=== PATIENT | male | born 1955 | race Hispanic/Latino ===

== ENCOUNTER 2016-11-02 16:26 | Inpatient (IN) | payer MEDICAID ==
[2016-11-02] MEDS ORDERED: Sodium Chloride 0.9% 1,000 ML IV ONE (17:16)
[2016-11-02 17:28] LABS: VENOUS BLOOD GAS BASE EXCESS 0.6 mmol/L (0.0-2.0); VENOUS BLOOD GAS PCO2 47 mmHg (40-60); VENOUS BLOOD PH 7.36 (7.32-7.43)
[2016-11-02 17:38] LABS: BASO # 0.1 K/uL (0.0-0.2); BASO % 1.5 % (0.0-2.0); EOS % 0.3 % (0.0-4.0); LYMPH # 1.4 K/uL (1.0-4.3); LYMPH % 18.9 % (20.0-40.0); MEAN CELL VOLUME 92.7 fL (80.0-94.0); MEAN CORPUSCULAR HEMOGLOBIN 31.2 pg (27.0-31.0); MEAN CORPUSCULAR HGB CONC 33.6 g/dL (33.0-37.0); MEAN PLATELET VOLUME 10.4 fL (7.2-11.7); MONO # 0.8 K/uL (0.0-0.8); MONO % 11.6 % (0.0-10.0); NRBC % 0.1 % (0.0-2.0); RED CELL DISTRIBUTION WIDTH 13.7 % (11.5-14.5); WHITE BLOOD COUNT 7.2 K/uL (4.8-10.8)
[2016-11-02 17:55] LABS: POTASSIUM 2.9 mmol/L (3.6-5.2)
[2016-11-02 17:57] LABS: ALB/GLOB RATIO 1.2 (1.0-2.1); BILIRUBIN,TOTAL 0.7 mg/dL (0.2-1.3); TOTAL PROTEIN 7.3 g/dL (6.3-8.3)
[2016-11-02] MEDS ORDERED: Piperacill/Tazo 4.5gm in Dex 4.5 GM/100 ML BAG IVPB STA (18:02)
[2016-11-02] MEDS ORDERED: Vancomycin 1 gm/NS 200 ml 1 GM/200 ML BAG IVPB STA (18:02)
[2016-11-02 18:16] LABS: TROPONIN I 0.023 ng/mL (0.00-0.120)
--- NOTE | 2016-11-02 18:22 | RAD ---
HISTORY: Sepsis patient. Portable study 18:14. COMPARISON: 08/30/2012. FINDINGS: LUNGS: No active pulmonary disease. PLEURA: No significant pleural effusion identified, no pneumothorax apparent. CARDIOVASCULAR: No radiographic findings to suggest acute or significant cardiovascular disease. OSSEOUS STRUCTURES: No significant abnormalities. VISUALIZED UPPER ABDOMEN: Normal. OTHER FINDINGS: None. IMPRESSION: No active disease. No significant interval change compared to the prior examination(s).
[2016-11-02] MEDS ORDERED: Piperacillin/Tazobact 3.375 gm 100 ML IVPB ONE (18:28)
[2016-11-02 18:31] LABS: RBC URINE 1 /hpf (0-3); URINE BACTERIA RARE (<OCC); URINE BILIRUBIN NEGATIVE (NEGATIVE); URINE BLOOD NEGATIVE (NEGATIVE); URINE COLOR Yellow (YELLOW); URINE GLUCOSE (UA) NORMAL (Normal); URINE KETONE NEGATIVE (NEGATIVE); URINE LEUKOCYTE ESTERASE NEG Leu/uL (Negative); URINE PROTEIN NEGATIVE (NEGATIVE); URINE UROBILINOGEN NORMAL mg/dL (0.2-1.0); WBC URINE 9 /hpf (0-5)
--- NOTE | 2016-11-02 18:43 | C.PDOC ---
History Of Present Illness 61-year-old male, PMHx includes Hypertension, s/p CABG (seven years ago), is sent to the emergency department by PMD, with complaints of hypotension. Patient states he has been experiencing a cough/URI symptoms for the past few days and now has abdominal pain and chest pain. . States he fell yesterday and landed on elbows and head because he was unable to stand. Denies headaches, nausea/vomiting. No other complaints at this time Time Seen by Provider: 11/02/16 17:54 Chief Complaint (Nursing): Weakness/Neurological Deficit History Per: Patient History/Exam Limitations: no limitations Pain Scale Rating Of: 4 Additional History Per: Patient Past Medical History Reviewed: Historical Data, Nursing Documentation, Vital Signs Vital Signs: Last Vital Signs Temp 100.5 F H 11/02/16 18:43 Pulse 76 11/02/16 18:43 Resp 15 11/02/16 18:43 BP 91/56 L 11/02/16 18:43 Pulse Ox 95 11/02/16 18:55 - Medical History PMH: Arthritis, Asthma, Bronchitis, COPD, Depression, Emphysema, HTN Family History: States: Unknown Family Hx - Social History Hx Tobacco Use: No Hx Alcohol Use: No Hx Substance Use: No Review Of Systems Except As Marked, All Systems Reviewed And Found Negative. Constitutional: Positive for: Fever, Chills Cardiovascular: Negative for: Chest Pain Respiratory: Positive for: Cough. Negative for: Shortness of Breath Gastrointestinal: Negative for: Vomiting Musculoskeletal: Negative for: Back Pain Skin: Negative for: Rash Neurological: Positive for: Weakness, Dizziness. Negative for: Numbness, Confusion, Seizures, Altered Mental Status, Headache Physical Exam - Physical Exam Appears: Non-toxic, No Acute Distress, Unkempt, Chronically Ill Skin: Warm, Dry, No Rash Head: Atraumatic, Normacephalic Eye(s): bilateral: EOMI (PUPILS PINPOINT), left: Other (BLOIND LEFT EYE) Nose: Normal Oral Mucosa: Moist Lips: Normal Appearing Neck: Normal ROM Cardiovascular: Rhythm Regular Respiratory: No Accessory Muscle Use, Rhonchi (SCATTERED) Gastrointestinal/Abdominal: Soft, Tenderness (EPIGASSTRIC, RIGHT CHEST WALL), No Guarding, No Rebound Back: No CVA Tenderness Extremity: Normal ROM Neurological/Psych: Oriented x3, Normal Speech ED Course And Treatment - Laboratory Results Result Diagrams: 11/02/16 17:32 11/02/16 17:32 O2 Sat by Pulse Oximetry: 95 Disposition Discussed With DrAlida: Erica Graff Counseled Patient/Family Regarding: Studies Performed, Diagnosis - Disposition Disposition: HOSPITALIZED Disposition Time: 18:54 Condition: GUARDED - POA Present On Arrival: None - Clinical Impression Clinical Impression: Hypotension - Scribe Statement The provider has reviewed the documentation as recorded by the Scribcelia Holland All medical record entries made by the Scribe were at my direction and personally dictated by me. I have reviewed the chart and agree that the record accurately reflects my personal performance of the history, physical exam, medical decision making, and the department course for this patient. I have also personally directed, reviewed, and agree with the discharge instructions and disposition. Physician Patient Turnover Patient Signed Over To: Edison Flynn Handoff Comments: patient with hypotension, fever, no source, for admission, pending ICU eval. Decision To Admit - . Patient Diagnosis: Hypotension
[2016-11-02] MEDS ORDERED: Potassium Chloride 20 mEq ER Tab PO STA (18:50)
[2016-11-02 18:57] LABS: ALCOHOL SERUM < 10 mg/dl (0-10); MAGNESIUM 1.4 mg/dL (1.6-2.3); PHOSPHOROUS 3.9 mg/dL (2.5-4.5)
[2016-11-02] MEDS ORDERED: Potassium Chloride 20 mEq ER Tab PO ONE (20:49)
[2016-11-02 21:08] LABS: VENOUS BLOOD GAS BASE EXCESS -0.8 mmol/L (0.0-2.0); VENOUS BLOOD GAS PCO2 44 mmHg (40-60); VENOUS BLOOD PH 7.36 (7.32-7.43)
[2016-11-02] MEDS ORDERED: Sodium Chloride 0.9% 1,000 ML ONE (21:13)
--- NOTE | 2016-11-02 21:14 | CP.PCM.CON ---
History of Present Illness - History of Present Illness History of Present Illness: CCM 61 yo male with hx HTN/CABG /Arthritis /Asthma /COPD /Depression went to PMD b/ o cough x 2 days and sent to ED b/o low BP. Pt claims pleuritic cough x 2 days. + felt feverish. + vomited. Has had diarrhea. yest Had some epigastric pain with cough as well. No MOBLEY. Pt was walking yest and felt sob and like he might pass out. In ED pt given 3 liters IV fluid and BP improved into 90's. Pt claims feeling better except when coughing. Started on Ab in ED. Influenza neg in ED. ROS- as noted All- NKDA Social- Ex-tob/ ex-ETOH/ no drugs Meds-reviewed FH- Unknown PE T-100.5 P-72 R-15 BP-97/54 Neck- no jvd lungs- bilat coarse bs Heart-rr aBd- bs+ , soft, no localized tenderness Ext- nontender Neuro- nonfocal Labs, ekg, h-zcti-wudhijlm A&P Sepsis r/o PNA COPD Hypokalemia Hx CABG Hx HTn Depression BP improved and not tachycardic cont Ab f/u cultures Optimize lytes cont IV fluid f/u lactate hold all BP meds DVT prophylaxis Pt does not need ICU at this time- would suggest telemetry d/w ED staff Past Patient History - Infectious Disease Hx of Infectious Diseases: None - Past Social History Smoking Status: Former Smoker - CARDIAC Hx Hypertension: Yes - PULMONARY Hx Asthma: Yes Hx Bronchitis: Yes Hx Chronic Obstructive Pulmonary Disease (COPD): Yes Hx Emphysema: Yes - MUSCULOSKELETAL/RHEUMATOLOGICAL Hx Arthritis: Yes - PSYCHIATRIC Hx Depression: Yes Hx Substance Use: No - SURGICAL HISTORY Hx Surgeries: Yes Other/Comment: triple bypass two years ago. - ANESTHESIA Hx Anesthesia: Yes Hx Anesthesia Reactions: No Meds Allergies/Adverse Reactions: Allergies Allergy/AdvReac Type Severity Reaction Status Date / Time No Known Allergies Allergy Verified 11/02/16 16:38 - Medications Medications: Current Medications Potassium Chloride (Potassium Chloride 20 Meq/100 Ml) 20 meq in 100 mls @ 50 mls/hr IVPB ONCE ONE Stop: 11/02/16 23:02 Results - Vital Signs Recent Vital Signs: Last Vital Signs Temp 100.5 F H 11/02/16 18:43 Pulse 76 11/02/16 18:43 Resp 15 11/02/16 18:43 BP 91/56 L 11/02/16 18:43 Pulse Ox 95 11/02/16 19:06 - Labs Result Diagrams: 11/02/16 17:32 11/02/16 17:32 Labs: Laboratory Results - last 24 hr 11/02/16 11/02/16 11/02/16 17:23 17:32 17:32 WBC 7.2 RBC 3.78 L Hgb 11.8 L Hct 35.0 MCV 92.7 MCH 31.2 H MCHC 33.6 RDW 13.7 Plt Count 262 MPV 10.4 Neut % (Auto) 67.7 Lymph % (Auto) 18.9 L [place] % (Auto) 11.6 H Eos % (Auto) 0.3 Baso % (Auto) 1.5 Neut # 4.9 Lymph # 1.4 [place] # 0.8 Eos # 0.0 Baso # 0.1 PT INR APTT pO2 25 L VBG pH 7.36 VBG pCO2 47 VBG HCO3 23.9 VBG Total CO2 28.0 VBG O2 Sat (Calc) 45.6 VBG Base Excess 0.6 VBG Potassium 2.8 L Sodium 131.0 L 134 Chloride 97.0 L 95 L Glucose 89 Lactate 2.2 H Potassium 2.9 L Carbon Dioxide 23 Anion Gap 19 BUN 16 Creatinine 1.5 Est GFR ( Amer) 58 Est GFR (Non-Af Amer) 48 Random Glucose 88 Calcium 8.0 L Phosphorus Magnesium Total Bilirubin 0.7 AST 41 ALT 34 Alkaline Phosphatase 68 Total Creatine Kinase 152 CK-MB (Mass) 0.25 Troponin I 0.0230 Troponin I, Quant 0.0230 NT-Pro-B Natriuret Pep 652 Total Protein 7.3 Albumin 3.9 Globulin 3.4 Albumin/Globulin Ratio 1.2 Venous Blood Potassium 2.8 L Urine Color Urine Clarity Urine pH Ur Specific [place] Urine Protein Urine Glucose (UA) Urine Ketones Urine Blood Urine Nitrate Urine Bilirubin Urine Urobilinogen Ur Leukocyte Esterase Urine WBC (Auto) Urine RBC (Auto) Ur Squamous Epith Cells Urine Bacteria Urine Opiates Screen Urine Methadone Screen Ur Barbiturates Screen Ur Phencyclidine Scrn Ur Amphetamines Screen U Benzodiazepines Scrn U Oth Cocaine Metabols U Cannabinoids Screen Alcohol, Quantitative Influenza Typ A,B (EIA) 11/02/16 11/02/16 11/02/16 17:32 18:12 18:12 WBC RBC Hgb Hct MCV MCH MCHC RDW Plt Count MPV Neut % (Auto) Lymph % (Auto) [place] % (Auto) Eos % (Auto) Baso % (Auto) Neut # Lymph # [place] # Eos # Baso # PT 11.7 INR 1.0 APTT 33 pO2 VBG pH VBG pCO2 VBG HCO3 VBG Total CO2 VBG O2 Sat (Calc) VBG Base Excess VBG Potassium Sodium Chloride Glucose Lactate Potassium Carbon Dioxide Anion Gap BUN Creatinine Est GFR ( Amer) Est GFR (Non-Af Amer) Random Glucose Calcium Phosphorus Magnesium Total Bilirubin AST ALT Alkaline Phosphatase Total Creatine Kinase CK-MB (Mass) Troponin I Troponin I, Quant NT-Pro-B Natriuret Pep Total Protein Albumin Globulin Albumin/Globulin Ratio Venous Blood Potassium Urine Color Yellow Urine Clarity Hazy Urine pH 6.0 Ur Specific [place] 1.017 Urine Protein Negative Urine Glucose (UA) Normal Urine Ketones Negative Urine Blood Negative Urine Nitrate Negative Urine Bilirubin Negative Urine Urobilinogen Normal Ur Leukocyte Esterase Neg Urine WBC (Auto) 9 H Urine RBC (Auto) 1 Ur Squamous Epith Cells 1 Urine Bacteria Rare Urine Opiates Screen Negative Urine Methadone Screen Negative Ur Barbiturates Screen Negative Ur Phencyclidine Scrn Negative Ur Amphetamines Screen Negative U Benzodiazepines Scrn Negative U Oth Cocaine Metabols Negative U Cannabinoids Screen Negative Alcohol, Quantitative Influenza Typ A,B (EIA) 11/02/16 11/02/16 18:16 18:41 WBC RBC Hgb Hct MCV MCH MCHC RDW Plt Count MPV Neut % (Auto) Lymph % (Auto) [place] % (Auto) Eos % (Auto) Baso % (Auto) Neut # Lymph # [place] # Eos # Baso # PT INR APTT pO2 VBG pH VBG pCO2 VBG HCO3 VBG Total CO2 VBG O2 Sat (Calc) VBG Base Excess VBG Potassium Sodium Chloride Glucose Lactate Potassium Carbon Dioxide Anion Gap BUN Creatinine Est GFR ( Amer) Est GFR (Non-Af Amer) Random Glucose Calcium Phosphorus 3.9 Magnesium 1.4 L Total Bilirubin AST ALT Alkaline Phosphatase Total Creatine Kinase CK-MB (Mass) Troponin I Troponin I, Quant NT-Pro-B Natriuret Pep Total Protein Albumin Globulin Albumin/Globulin Ratio Venous Blood Potassium Urine Color Urine Clarity Urine pH Ur Specific [place] Urine Protein Urine Glucose (UA) Urine Ketones Urine Blood Urine Nitrate Urine Bilirubin Urine Urobilinogen Ur Leukocyte Esterase Urine WBC (Auto) Urine RBC (Auto) Ur Squamous Epith Cells Urine Bacteria Urine Opiates Screen Urine Methadone Screen Ur Barbiturates Screen Ur Phencyclidine Scrn Ur Amphetamines Screen U Benzodiazepines Scrn U Oth Cocaine Metabols U Cannabinoids Screen Alcohol, Quantitative < 10 Influenza Typ A,B (EIA) Negative for flu a/b Assessment & Plan (1) Sepsis Status: Acute (2) PNA (pneumonia) Status: Acute (3) COPD (chronic obstructive pulmonary disease) Status: Chronic
[2016-11-02] MEDS ORDERED: Magnesium Sulfate 1 gm in D5W 1 GM/100 ML BAG IVPB ONE (21:31)
[2016-11-02] MEDS ORDERED: Albuterol HFA 90 mcg/actuation (8 g) INH PRN (21:32)
[2016-11-02] MEDS ORDERED: ACLIDINIUM BROMIDE 400 MCG IH SCH (22:00)
[2016-11-02] MEDS: Sodium Chloride 0.9% 1,000 ML IV SCH (22:45)
[2016-11-03] MEDS ORDERED: Magnesium Sulfate 1 gm in D5W 1 GM/100 ML BAG IVPB ONE ×2 (04:00→09:39)
[2016-11-03 07:22] LABS: BASO # 0.1 K/uL (0.0-0.2); BASO % 1.3 % (0.0-2.0); EOS % 0.7 % (0.0-4.0); HEMATOCRIT 32.7 % (35.0-51.0); LYMPH % 18.2 % (20.0-40.0); MEAN CORPUSCULAR HEMOGLOBIN 30.8 pg (27.0-31.0); MEAN CORPUSCULAR HGB CONC 33.5 g/dL (33.0-37.0); MEAN PLATELET VOLUME 10.4 fL (7.2-11.7); MONO # 0.5 K/uL (0.0-0.8); NRBC % 0.1 % (0.0-2.0); RED CELL DISTRIBUTION WIDTH 13.6 % (11.5-14.5); WHITE BLOOD COUNT 5.5 K/uL (4.8-10.8)
[2016-11-03 07:35] LABS: CHLORIDE 101 mmol/L (98-107); POTASSIUM 2.7 mmol/L (3.6-5.2); SODIUM 134 mmol/L (132-148)
[2016-11-03 07:37] LABS: ALB/GLOB RATIO 1.1 (1.0-2.1); ALKALINE PHOSPHATASE 62 U/L (38-126); ALT/SGPT 31 U/L (21-72); AST/SGOT 36 U/L (17-59); BILIRUBIN,TOTAL 0.4 mg/dL (0.2-1.3); BLOOD UREA NITROGEN 12 mg/dL (9-20); CARBON DIOXIDE 21 mmol/L (22-30); CHOLESTEROL 132 mg/dL (0-199); GFR AFRICAN-AMERICAN > 60; GLUCOSE,RANDOM 105 mg/dL (75-110); TOTAL PROTEIN 6.4 g/dL (6.3-8.3)
[2016-11-03 07:38] LABS: CALCIUM 7.6 mg/dl (8.6-10.4); MAGNESIUM 1.7 mg/dL (1.6-2.3); PHOSPHOROUS 2.5 mg/dL (2.5-4.5)
[2016-11-03] MEDS: Sodium Chloride 0.9% 1,000 ML IV SCH ×2 (08:05→17:48)
[2016-11-03 08:12] VITALS: RESP 20
--- NOTE | 2016-11-03 09:42 | CP.PCM.PN ---
Subjective - Date & Time of Evaluation Date of Evaluation: 11/03/16 Time of Evaluation: 09:45 - Subjective Subjective: H&P dictated #[id number] Objective - Vital Signs/Intake and Output Vital Signs (last 24 hours): Temp Pulse Resp BP Pulse Ox 98.4 F 62 20 135/63 97 11/03/16 08:19 11/03/16 08:19 11/03/16 08:19 11/03/16 08:19 11/03/16 08:19 Intake and Output: 11/03/16 11/03/16 06:59 18:59 Intake Total 800 Balance 800 - Medications Medications: Current Medications Albuterol (Ventolin Hfa 90 Mcg/Actuation (8 G)) 1 puff INH Q4 PRN PRN Reason: Shortness of Breath Aspirin (Ecotrin) 81 mg PO DAILY [facility] Clopidogrel Bisulfate (Plavix) 75 mg PO DAILY [facility] Famotidine (Pepcid) 20 mg PO DAILY [facility] Fluoxetine HCl (Prozac) 40 mg PO DAILY [facility] Home Med (Aclidinium [place] [Tudorza Pressair]) 400 mcg IH Q12 [facility] Sodium Chloride (Sodium Chloride 0.9%) 1,000 mls @ 100 mls/hr IV .Q10H [facility] Last Admin: 11/02/16 22:45 Dose: 100 mls/hr Magnesium Sulfate/Dextrose (Magnesium Sulfate 1 Gm/100 Ml D5w) 1 gm in 100 mls @ 200 mls/hr IVPB ONCE ONE Stop: 11/03/16 10:08 Potassium Chloride (Potassium Chloride 20 Meq/100 Ml) 20 meq in 100 mls @ 50 mls/hr IVPB Q2H [facility] Stop: 11/03/16 13:44 Rosuvastatin Calcium (Crestor) 40 mg PO HS [facility] Vitamin B Complex/Vitamin C (Berocca) 1 tab PO DAILY [facility] - Labs Labs: 11/03/16 07:07 11/03/16 07:07 PT 11.7 SECONDS (9.7-12.2) 11/02/16 17:32 INR 1.0 11/02/16 17:32 APTT 33 SECONDS (21-34) 11/02/16 17:32
[2016-11-03] MEDS: Vitamin B Complex/Vitamin C Tab PO SCH (10:50)
[2016-11-03] MEDS: Oxycodone/Acetaminophen 5/325 mg Tab PO PRN (10:50)
[2016-11-03] MEDS: cefTRIAXone IV 1 gm in Dextros 50 ML IVPB SCH (12:00)
--- NOTE | 2016-11-03 12:32 | CP.PCM.PCO ---
Physician Communication Note - Physician Communication Note Physician Communication Note: name seen on my [employer] list, but I have not been contacted. saravanan leal pt
--- NOTE | 2016-11-03 12:47 | RAD ---
HISTORY: cough,r/o infiltrate COMPARISON: Chest x-ray performed 11/02/16 TECHNIQUE: Chest PA and lateral FINDINGS: LUNGS: Bibasilar atelectasis. Please note that chest x-ray has limited sensitivity for the detection of pulmonary masses. PLEURA: No significant pleural effusion identified. No definite pneumothorax . CARDIOVASCULAR: Median sternotomy wires with evidence of CABG. Cardiomegaly. OSSEOUS STRUCTURES: Degenerative changes. VISUALIZED UPPER ABDOMEN: Unremarkable. OTHER FINDINGS: None. IMPRESSION: Bibasilar atelectasis.
[2016-11-03 19:35] LABS: HEMATOCRIT 33.5 % (35.0-51.0); MEAN CELL VOLUME 92.8 fL (80.0-94.0); MEAN CORPUSCULAR HEMOGLOBIN 30.6 pg (27.0-31.0); MEAN CORPUSCULAR HGB CONC 32.9 g/dL (33.0-37.0); MEAN PLATELET VOLUME 10.4 fL (7.2-11.7); RED CELL DISTRIBUTION WIDTH 13.7 % (11.5-14.5); WHITE BLOOD COUNT 4.1 K/uL (4.8-10.8)
[2016-11-03 19:46] LABS: CHLORIDE 98 mmol/L (98-107); POTASSIUM 3.2 mmol/L (3.6-5.2); SODIUM 132 mmol/L (132-148)
[2016-11-03 19:48] LABS: GFR AFRICAN-AMERICAN > 60
[2016-11-03 19:49] LABS: BLOOD UREA NITROGEN 10 mg/dL (9-20); CARBON DIOXIDE 22 mmol/L (22-30); GLUCOSE,RANDOM 102 mg/dL (75-110)
[2016-11-03 20:56] LABS: LEGIONELLA AG URINE NEGATIVE (NEGATIVE)
--- NOTE | 2016-11-03 23:28 | HP ---
CHIEF COMPLAINT: Sent from PMDs office for hypotension, a cold and cough with yellowish sputum for 2 days. HISTORY OF PRESENT ILLNESS: The patient is a 61-year-old male with a past medical history of CAD, status post CABG about 3 years ago, hypertension, osteoarthritis, anxiety, depression, hyperlipidemia, COPD who has been following up with the primary care physician, who came into the ED after his PMD referred to the ED for hypotension. As per the patient, he has been having a cold, a cough with yellowish sputum for the past 2 days. Denies any fever. The cough was worse with pleuritic chest pain and epigastric pain from coughing 2 days ago when he was supposed to be following up with PMD. He was on his way to the doctor's office, he felt very dizzy, tired and could not go to the doctor 's office. He went to his doctor's house yesterday when he was evaluated by his PMD. He was found to be having very low blood pressures, systolic in the 70s, and patient was sent to the Emergency Room. The patient denied any headache, denied any fever. Complaining of dizziness. Denies any nausea or vomiting at present time, but had felt nauseous and did not have any vomiting. For the past 2 days complaining of diffuse abdominal pain. This morning he had loose watery bowel movements, which were dark in color. He has been complaining of burping and feeling gassy. He has a prior history of ETOH abuse , quit about 5 years ago. He does not know if he had any alcoholic liver disease. He had seen a fur puller at the [facility], underwent colonoscopy about 5 years ago, and he was told that 3 polyps were removed and he was told to return to the fur puller after 5 years. He has been following up with Dr. Griffin for cardiology. When I examined him, he feel slightly better than yesterday, but he still feels tired and fatigued. All other systems reviewed and were found to be negative. PAST MEDICAL HISTORY: As described. CAD, hypertension, osteoarthritis, depression, anxiety, COPD, ETOH abuse. 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 FAMILY HISTORY: Rheumatoid arthritis in mother. Father at age of 90 from natural causes. PERSONAL HISTORY: He is single, having 1 daughter, lives with a girlfriend. She used to move furniture. SOCIAL HISTORY: He is an ex-smoker, quit smoking about 5 years ago. Smoked 2 packs per day for 47 years. Ex-alcoholic. Drinks socially. Denies any other drug abuse. ALLERGIES: No known drug allergies. HOME MEDICATIONS: Include Ambien 10 mg p.o. at bedtime, Risperdal 0.25 mg p.o. daily, Protonix 40 mg daily, multivitamin, losartan, hydrochlorothiazide, ibuprofen, Prozac 40 mg daily, Plavix 75 mg daily, Lipitor 80 mg daily, aspirin 81 mg daily, Ventolin as needed, Lasix 40 mg daily. REVIEW OF SYSTEMS: As described in history of present illness. PHYSICAL EXAMINATION: GENERAL: A middle-aged male lying in bed in no acute distress. VITAL SIGNS: Blood pressure 135/63. When he came in, his blood pressures were 67 systolic. A T-max was 100.5, pulse 73, respirations 20, O2 sats 95% on 2 liters nasal cannula. HEENT: Pupils equal, reacting to light and accommodation. Extraocular muscles intact. No icterus, no pallor. No oral thrush. No pharyngeal congestion. NECK: Supple. No JVD. LUNGS: Bilateral vesicular breath sounds. No wheezing, no rhonchi. CARDIOVASCULAR: S1, S2 present, regular. ABDOMEN: Soft, nontender. Bowel sounds present. No guarding, no rigidity, no rebound tenderness noted. CENTRAL NERVOUS SYSTEM: Alert, awake, oriented x 3. No focal deficits. EXTREMITIES: No edema. Palpable peripheral pulses. Crepitance in both the knee joints noted on flexion and extension. LABORATORY DATA: WBC 7.2, hemoglobin 11.8, hematocrit 35, platelets 262. Sodium 134, potassium 2.9, chloride 95, bicarbonate 23, BUN 16, creatinine 1.5. Lactic acid 0.8, calcium 8.0, magnesium 1.4, phosphorus 3.9, total bilirubin 0.7, AST 41, ALT 34, alkaline phosphatase 68. Cardiac enzymes x 2 negative. Procalcitonin less than 0.05. UA negative. Urine drug screen negative. Influenza A and B negative. Urine culture negative. Blood cultures sent from the ED. Chest x-ray negative for any infiltrate. EKG normal sinus rhythm at 72 beats per minute, no acute ST-T changes noted. ASSESSMENT AND PLAN: A middle-aged male with a history of coronary artery disease status post coronary artery bypass graft, hypertension, hyperlipidemia, depression, anxiety, osteoarthritis, chronic obstructive pulmonary disease, history of ETOH abuse who has been following up with Dr. Gonsales, referred to the Emergency Department for hypotension with cold, cough and yellowish sputum without any obvious sources of infection. The patient is being admitted for further management. 1. Hypotension without any obvious source of infection, questionable etiology, rule out any gastrointestinal blood loss, rule out any cardiac causes, rule out secondary to taking extra medication for blood pressure, which patient denies, rule out sepsis. So far, all the cultures are negative. 2. Acute bronchitis. 3. Coronary artery disease, status post coronary artery bypass graft. 4. Hyperlipidemia. 5. History of osteoarthritis. 6. History of depression and anxiety. 7. History of chronic obstructive pulmonary disease. 8. History of ETOH abuse. PLAN: The patient is being admitted to telemetry. The patient was initially evaluated by critical care and did not think the patient should be monitored in the intensive care unit. The patient was given 3 liters bolus in the Emergency Room with which his blood pressures improved. The patient was given multiple doses of antibiotics. All the cultures are pending and so far negative. There is no other source of infection. Will give Rocephin empirically for his bronchitis. Continue with bronchodilators. Will hold antihypertensives. Will check stool workup to rule out any occult blood and GI blood losses. Will obtain cardiology evaluation. Will check ultrasound of the abdomen. Will monitor his blood pressure closely. Will add further recommendations as his clinical course progresses. Erica Graff MD cc: [id number] TT: 11/03/2016 23:28:32 tommie ROLLE
[2016-11-04] MEDS: Sodium Chloride 0.9% 1,000 ML IV SCH ×2 (02:02→12:30)
[2016-11-04] MEDS: Albuterol HFA 90 mcg/actuation (8 g) INH PRN (02:29)
[2016-11-04 07:32] LABS: EOS % 1.1 % (0.0-4.0); HEMATOCRIT 32.1 % (35.0-51.0); LYMPH # 1.1 K/uL (1.0-4.3); LYMPH % 27.8 % (20.0-40.0); MEAN CELL VOLUME 91.9 fL (80.0-94.0); MEAN CORPUSCULAR HEMOGLOBIN 31.1 pg (27.0-31.0); MEAN CORPUSCULAR HGB CONC 33.9 g/dL (33.0-37.0); MEAN PLATELET VOLUME 10.1 fL (7.2-11.7); MONO # 0.4 K/uL (0.0-0.8); MONO % 9.1 % (0.0-10.0); RED CELL DISTRIBUTION WIDTH 13.6 % (11.5-14.5); WHITE BLOOD COUNT 3.9 K/uL (4.8-10.8)
[2016-11-04 07:49] LABS: CHLORIDE 100 mmol/L (98-107); POTASSIUM 2.9 mmol/L (3.6-5.2); SODIUM 133 mmol/L (132-148)
[2016-11-04 07:52] LABS: CARBON DIOXIDE 22 mmol/L (22-30); GFR AFRICAN-AMERICAN > 60
[2016-11-04 07:53] LABS: BLOOD UREA NITROGEN 9 mg/dL (9-20); GLUCOSE,RANDOM 98 mg/dL (75-110)
[2016-11-04] MEDS: Vitamin B Complex/Vitamin C Tab PO SCH (10:54)
[2016-11-04] MEDS: cefTRIAXone IV 1 gm in Dextros 50 ML IVPB SCH (10:55)
[2016-11-04] MEDS: Oxycodone/Acetaminophen 5/325 mg Tab PO PRN (11:00)
--- NOTE | 2016-11-04 11:31 | CP.PCM.PN ---
Subjective - Date & Time of Evaluation Date of Evaluation: 11/04/16 Time of Evaluation: 11:10 - Subjective Subjective: Progress note dictated #[id number] Objective - Vital Signs/Intake and Output Vital Signs (last 24 hours): Temp Pulse Resp BP Pulse Ox 98.0 F 74 20 110/61 93 L 11/04/16 09:02 11/04/16 09:02 11/04/16 09:02 11/04/16 09:02 11/04/16 09:02 - Medications Medications: Current Medications Albuterol (Ventolin Hfa 90 Mcg/Actuation (8 G)) 1 puff INH RQ4 PRN PRN Reason: Shortness of Breath Last Admin: 11/04/16 02:29 Dose: 1 puff Famotidine (Pepcid) 20 mg PO DAILY [facility] Last Admin: 11/04/16 10:53 Dose: 20 mg Fluoxetine HCl (Prozac) 40 mg PO DAILY [facility] Last Admin: 11/04/16 10:54 Dose: 40 mg Home Med (Aclidinium [place] [Tudorza Pressair]) 400 mcg IH Q12 [facility] Sodium Chloride (Sodium Chloride 0.9%) 1,000 mls @ 100 mls/hr IV .Q10H [facility] Last Admin: 11/04/16 02:02 Dose: 100 mls/hr Ceftriaxone Sodium (Rocephin Iv 1 Gm Duplex) 50 mls @ 100 mls/hr IVPB DAILY [facility] Last Admin: 11/04/16 10:55 Dose: 100 mls/hr Oxycodone/Acetaminophen (Percocet 5/325 Mg Tab) 1 tab PO Q6H PRN PRN Reason: Pain, moderate (4-7) Stop: 11/06/16 10:31 Last Admin: 11/04/16 11:00 Dose: 1 tab Rosuvastatin Calcium (Crestor) 40 mg PO HS [facility] Last Admin: 11/03/16 21:25 Dose: 40 mg Vitamin B Complex/Vitamin C (Berocca) 1 tab PO DAILY [facility] Last Admin: 11/04/16 10:54 Dose: 1 tab - Labs Labs: 11/04/16 07:18 11/04/16 07:18 PT 11.7 SECONDS (9.7-12.2) 11/02/16 17:32 INR 1.0 11/02/16 17:32 APTT 33 SECONDS (21-34) 11/02/16 17:32
--- NOTE | 2016-11-04 11:55 | US ---
HISTORY: abdominal pain COMPARISON: None available. TECHNIQUE: Sonographic evaluation of the abdomen. FINDINGS: LIVER: Measures 17.5 cm in sagittal dimension. Echogenic liver may be seen in setting of hepatic parenchymal disease or fatty infiltration. No focal hepatic mass identified. The main portal vein appears patent with normal directional flow. No intrahepatic bile duct dilatation. GALLBLADDER: No gallstones. No gallbladder wall thickening. Negative sonographic Anne's sign as assessed by the clerical and administrative workers. COMMON BILE DUCT: Measures 6 mm. PANCREAS: Not well visualized. RIGHT KIDNEY: Measures 12.4 x 5.1 x 6.3 cm. No obstructing calculus or hydronephrosis identified. LEFT KIDNEY: Measures 11.8 x 6.0 x 5.3 cm. No obstructing calculus or hydronephrosis identified. SPLEEN: Measures approximately 11.2 cm. AORTA: Limited views appear unremarkable. IVC: Limited views appear unremarkable. OTHER FINDINGS: None. IMPRESSION: Echogenic liver may be seen in setting of hepatic parenchymal disease or fatty infiltration.
[2016-11-04] MEDS ORDERED: Magnesium Sulfate 1 gm in D5W 1 GM/100 ML BAG IVPB ONE (12:00)
--- NOTE | 2016-11-04 12:56 | CP.PCM.CON ---
History of Present Illness - History of Present Illness History of Present Illness: I was asked to provide cardiology follow up by Dr. Graff. Patient is a 61 year old male with PMH HTN, CAD s/p CABG, hypercholesterolemia, who presents for management of hypotension. The paitient has noted progressive cough productive of yellowish sputum for the past week. He went to his primary doctor for further evaluation. The patient was found to be hypotensive. He was evaluated by ICU but deemed stable for floor management. The patient has no chest pain or dyspnea. He has continued cough. Review of Systems - Constitutional Constitutional: absent: As Per HPI, Anorexia, Chills, Daytime Sleepiness, Excessive Sweating, Fatigue, Fever, Frequent Falls, Headache, Increased Appetite , Lethargy, Malaise, Night Sweats, Snoring, Sleep Apnea, Weight Gain, Weight Loss, Weakness, Other - EENT Eyes: absent: As Per HPI, Blind Spots, Blurred Vision, Change in Vision, Decreased Night Vision, Diplopia, Discharge, Dry Eye, Exophthalmos, Floaters, Irritation, Itchy Eyes, Loss of Peripheral Vision, Pain, Photophobia, Requires Corrective Lenses, Sees Flashes, Spots in Vision, Tunnel Vision, Other Visual Disturbances, Loss of Vision, Other Ears: absent: As Per HPI, Decreased Hearing, Ear Discharge, Ear Pain, Tinnitus, Abnormal Hearing, Disequilibrium, Dizziness, Other Nose/Mouth/Throat: absent: As Per HPI, Epistaxis, Nasal Congestion, Nasal Discharge, Nasal Obstruction, Nasal Trauma, Nose Pain, Post Nasal Drip, Sinus Pain, Sinus Pressure, Bleeding Gums, Change in Voice, Dental Pain, Dry Mouth, Dysphagia, Halitosis, Hoarsness, Lip Swelling, Mouth Lesions, Mouth Pain, Odynophagia, Sore Throat, Throat Swelling, Tongue Swelling, Facial Pain, Neck Pain, Neck Mass, Other - Cardiovascular Cardiovascular: absent: As Per HPI, Acrocyanosis, Chest Pain, Chest Pain at Rest , Chest Pain with Activity, Claudication, Diaphoresis, Dyspnea, Dyspnea on Exertion, Edema, Irregular Heart Rhythm, Pain Radiating to Arm/Neck/Jaw, Leg Edema, Leg Ulcers, Lightheadedness, Orthopnea, Palpitations, Paroxysmal Nocturnal Dyspnea, Pedal Edema, Radiating Pain, Rapid Heart Rate, Slow Heart Rate, Syncope, Other - Respiratory Respiratory: Cough, Chest Congestion - Gastrointestinal Gastrointestinal: absent: As Per HPI, Abdominal Pain, Belching, Bloating, Change in Bowel Habits, Change in Stool Character, Coffee Ground Emesis, Constipation, Cramping, Diarrhea, Dyspepsia, Dysphagia, Early Satiety, Excessive Flatus, Fecal Incontinence, Heartburn, Hematemesis, Hematochezia, Loose Stools, Melena, Nausea, Odynophagia, Temesmus, Vomiting, Other - Genitourinary Genitourinary: absent: As Per HPI, Change in Urinary Stream, Difficulty Urinating, Dysuria, Flank Pain, Hematuria, Pyuria, Nocturia, Urinary Incontinence, Urinary Frequency, Urinary Hesitance, Urinary Urgency, Voiding Freq/Small Amts, Freq UTI, Hx Renal/Bladder Calculi, Hx /Renal Surgery, Bladder Distension, Other - Musculoskeletal Musculoskeletal: absent: As Per HPI, Abnormal Gait, Arthralgias, Atrophy, Back Pain, Deformity, Joint Swelling, Limited Range of Motion, Loss of Height, Muscle Cramps, Muscle Weakness, Myalgias, Neck Pain, Numbness, Radiating Pain into Limb, Stiffness, Tingling, Other - Integumentary Integumentary: absent: As Per HPI, Acne, Alopecia, Bleeding Lesions, Change in Hair, Change in Nails, Change in Pigmentation, Changing Lesions, Dry Skin, Erythema, Furuncle, Hirsutism, Lesions, New Lesions, Non-Healing Lesions, Photosensitivity, Pruritus, Rash, Skin Pain, Skin Ulcer, Sores, Striae, Swelling , Unusual Bruising, Wounds, Jaundice, Other - Neurological Neurological: absent: As Per HPI, Abnormal Gait, Abnormal Hearing, Abnormal Movements, Abnormal Speech, Behavioral Changes, Burning Sensations, Confusion, Convulsions, Disequilibrium, Dizziness, Numbness, Focal Weakness, Frequent Falls , Headaches, Lack of Coordination, Loss of Vision, Memory Loss, Paresthesias, Radicular Pain, Restless Legs, Sensory Deficit, Syncope, Tingling, Tremor, Vertigo, Weakness, Other Visual Disturbances, Other - Psychiatric Psychiatric: absent: As Per HPI, Abnormal Sleep Pattern, Anhedonia, Anxiety, Auditory Hallucinations, Behavioral Changes, Change in Appetite, Change in Libido, Confusion, Depression, Difficulty Concentrating, Hallucinations, Homicidal Ideation, Hopelessness, Irritability, Memory Loss, Mood Swings, Panic Attacks, Paranoia, Suicidal Ideation, Visual Hallucinations, Tactile Hallucinations, Other - Endocrine Endocrine: absent: As Per HPI, Change in Body Appearance, Change in Libido, Cold Intolorance, Deepening of Voice, Excessive Sweating, Fatigue, Flushing, Heat Intolorance, Increase in Ring/Shoe/Hat Size, Palpitations, Polydipsia, Polyphagia, Polyuria, Other - Hematologic/Lymphatic Hematologic: absent: As Per HPI, Easy Bleeding, Easy Bruising, Lymphadenopathy, Other Past Patient History - Infectious Disease Hx of Infectious Diseases: None - Past Medical History & Family History Past Medical History?: Yes - Past Social History Smoking Status: Former Smoker - CARDIAC Hx Cardiac Disorders: Yes Hx Hypertension: Yes - PULMONARY Hx Respiratory Disorders: Yes Hx Asthma: Yes Hx Bronchitis: Yes Hx Chronic Obstructive Pulmonary Disease (COPD): Yes Hx Emphysema: Yes - NEUROLOGICAL Hx Neurological Disorder: No - HEENT Hx HEENT Problems: No - RENAL Hx Chronic Kidney Disease: No - ENDOCRINE/METABOLIC Hx Endocrine Disorders: No - HEMATOLOGICAL/ONCOLOGICAL Hx Blood Disorders: No - INTEGUMENTARY Hx Dermatological Problems: No - MUSCULOSKELETAL/RHEUMATOLOGICAL Hx Falls: Yes - GASTROINTESTINAL Hx Gastrointestinal Disorders: No - GENITOURINARY/GYNECOLOGICAL Hx Genitourinary Disorders: No - PSYCHIATRIC Hx Depression: Yes Hx Substance Use: No - SURGICAL HISTORY Hx Surgeries: Yes Other/Comment: triple bypass two years ago. No further information given by patient - ANESTHESIA Hx Anesthesia: Yes Hx Anesthesia Reactions: No Meds Allergies/Adverse Reactions: Allergies Allergy/AdvReac Type Severity Reaction Status Date / Time No Known Allergies Allergy Verified 11/02/16 16:38 - Medications Medications: Current Medications Albuterol (Ventolin Hfa 90 Mcg/Actuation (8 G)) 1 puff INH RQ4 PRN PRN Reason: Shortness of Breath Last Admin: 11/04/16 02:29 Dose: 1 puff Famotidine (Pepcid) 20 mg PO DAILY [facility] Last Admin: 11/04/16 10:53 Dose: 20 mg Fluoxetine HCl (Prozac) 40 mg PO DAILY [facility] Last Admin: 11/04/16 10:54 Dose: 40 mg Home Med (Aclidinium [place] [Tudorza Pressair]) 400 mcg IH Q12 CARLOS Sodium Chloride (Sodium Chloride 0.9%) 1,000 mls @ 100 mls/hr IV .Q10H CARLOS Last Admin: 04/30/17 12:30 Dose: 100 mls/hr Ceftriaxone Sodium (Rocephin Iv 1 Gm Duplex) 50 mls @ 100 mls/hr IVPB DAILY [facility] Last Admin: 11/04/16 10:55 Dose: 100 mls/hr Magnesium Sulfate/Dextrose (Magnesium Sulfate 1 Gm/100 Ml D5w) 1 gm in 100 mls @ 100 mls/hr IVPB ONCE ONE Stop: 11/04/16 12:59 Last Admin: 11/04/16 12:22 Dose: 100 mls/hr Potassium Chloride (Potassium Chloride 20 Meq/100 Ml) 20 meq in 100 mls @ 50 mls/hr IVPB Q2H CARLOS Stop: 11/04/16 16:59 Last Admin: 11/04/16 12:29 Dose: 50 mls/hr Oxycodone/Acetaminophen (Percocet 5/325 Mg Tab) 1 tab PO Q6H PRN PRN Reason: Pain, moderate (4-7) Stop: 11/06/16 10:31 Last Admin: 11/04/16 11:00 Dose: 1 tab Rosuvastatin Calcium (Crestor) 40 mg PO HS [facility] Last Admin: 11/03/16 21:25 Dose: 40 mg Vitamin B Complex/Vitamin C (Berocca) 1 tab PO DAILY [facility] Last Admin: 11/04/16 10:54 Dose: 1 tab Physical Exam - Constitutional Appears: Non-toxic - Head Exam Head Exam: NORMAL INSPECTION - Eye Exam Eye Exam: Normal appearance - ENT Exam ENT Exam: Mucous Membranes Moist - Neck Exam Neck exam: Positive for: Full Rom - Respiratory Exam Respiratory Exam: Decreased Breath Sounds - Cardiovascular Exam Cardiovascular Exam: REGULAR RHYTHM - GI/Abdominal Exam GI & Abdominal Exam: Normal Bowel Sounds - Rectal Exam Rectal Exam: Deferred - Extremities Exam Extremities exam: Positive for: pedal edema - Back Exam Back exam: NORMAL INSPECTION - Neurological Exam Neurological exam: Alert, Oriented x3 - Psychiatric Exam Psychiatric exam: Normal Affect - Skin Skin Exam: Normal Color Results - Vital Signs Recent Vital Signs: Last Vital Signs Temp 98.0 F 11/04/16 09:02 Pulse 74 11/04/16 09:02 Resp 20 11/04/16 09:02 BP 110/61 11/04/16 09:02 Pulse Ox 93 L 11/04/16 09:02 - Labs Result Diagrams: 11/04/16 07:18 11/04/16 07:18 Labs: Laboratory Results - last 24 hr 11/03/16 11/03/16 11/03/16 01:56 10:26 19:24 WBC RBC Hgb Hct MCV MCH MCHC RDW Plt Count MPV Neut % (Auto) Lymph % (Auto) Bailey % (Auto) Eos % (Auto) Baso % (Auto) Neut # Lymph # Bailey # Eos # Baso # Sodium 132 Potassium 3.2 L Chloride 98 Carbon Dioxide 22 Anion Gap 15 BUN 10 Creatinine 1.1 Est GFR ( Amer) > 60 Est GFR (Non-Af Amer) > 60 Random Glucose 102 Calcium 8.0 L Procalcitonin < 0.05 L Ur L.pneumophila Ag Negative 11/03/16 11/04/16 11/04/16 19:24 07:18 07:18 WBC 4.1 L 3.9 L RBC 3.61 L 3.49 L Hgb 11.0 L 10.9 L Hct 33.5 L 32.1 L MCV 92.8 91.9 MCH 30.6 31.1 H MCHC 32.9 L 33.9 RDW 13.7 13.6 Plt Count 209 221 MPV 10.4 10.1 Neut % (Auto) 61.0 Lymph % (Auto) 27.8 Bailey % (Auto) 9.1 Eos % (Auto) 1.1 Baso % (Auto) 1.0 Neut # 2.4 Lymph # 1.1 Bailey # 0.4 Eos # 0.0 Baso # 0.0 Sodium 133 Potassium 2.9 L Chloride 100 Carbon Dioxide 22 Anion Gap 14 BUN 9 Creatinine 0.9 Est GFR ( Amer) > 60 Est GFR (Non-Af Amer) > 60 Random Glucose 98 Calcium 8.0 L Procalcitonin Ur L.pneumophila Ag - EKG Data EKG Interpreted by: Myself EKG shows normal: Sinus rhythm Assessment & Plan (1) CAD (coronary artery disease) Assessment and Plan: stable after CABG. continue current medical therapy. Status: Acute (2) Hypokalemia Assessment and Plan: replete K to reduce risk of arrhythmia Status: Acute (3) Hypotension Assessment and Plan: unclear etiology. may be infectious. check echocardiogram Status: Acute
--- NOTE | 2016-11-04 13:37 | PN ---
DATE: 11/04/2016 The patient is seen and examined at the bedside. The patient complained of shortness of breath this morning and he was given oxygen, with which his shortness of breath is improved. He did not give his stool sample, claiming that he did not need to go since yesterday after 3 episodes of loose bowel mo vements. Denies any headache, dizziness. Denies any chest pain, shortness of breath or wheezing. D enies any nausea, vomiting, abdominal pain at this time. Percocet is helping him with his leg pains. All other systems reviewed and were found to be negative. PHYSICAL EXAMINATION: GENERAL: Middle-aged male, lying in bed, in no acute distress. VITAL SIGNS: Blood pressure 110/61, pulse 74, respirations 20, temperature 98 degrees Fahrenheit, O2 sats are 93% on room air. HEENT: Pupils equal, round, reacting to light and accommodation. Extraocular muscles intact. No ic terus, no pallor. No oral thrush. No pharyngeal congestion. NECK: Supple. No JVD, no thyromegaly. CHEST: Moving equally bilaterally on respiration. LUNGS: Bilateral vesicular breath sounds. No wheezing, no rhonchi. CARDIOVASCULAR: S1, S2 present, regular. ABDOMEN: Soft, nontender. Bowel sounds present. No guarding, no rigidity, no rebound tenderness no samina. CENTRAL NERVOUS SYSTEM: Alert, awake, oriented x 3. No focal deficits noted. EXTREMITIES: No edema. Palpable peripheral pulses. MEDICATIONS: Include Ventolin, Rocephin 1 gram daily, Pepcid 20 mg daily, Prozac 40 mg daily, Percoc et 1 tab as needed, Crestor 40 mg, vitamin B complex. LABORATORIES: From this morning, WBC 3.9, hemoglobin 10.9, hematocrit 32.1, platelets 221. Sodium 1 33, potassium 2.9, chloride 100, bicarbonate 22, BUN 9, creatinine 0.9, glucose 98, calcium 8.0. Leg ionella negative. Mycoplasma pending. Blood cultures so far negative. Urine culture negative. Sto ol sample, patient did not give the sample yet. ASSESSMENT AND PLAN: Middle-aged male with past medical history of coronary artery disease, status p ost coronary artery bypass graft, hypertension, osteoarthritis, chronic obstructive pulmonary disease , depression, anxiety, ethyl alcohol abuse history. Admitted for hypotension, bronchitis, hypokalemi a, hypomagnesemia. His hypokalemia is persistent, status post 3 episodes of diarrhea, which are emmett k colored as per the patient, unable to provide any further stool samples for occult blood. The sanjay ent's blood pressure is improving. The patient is still hypokalemic after multiple doses. Will supp lement KCl another 40 mEq today and repeat BMP at 6 p.m. Supplement magnesium 1 gram IV. Aspirin an d Plavix are on hold and antihypertensives are on hold. Continue with nebulizer treatments and oxyge n. Chest x-ray repeat was negative for any atelectasis. Will continue with current medication. Fol low up with cardiology. Erica Graff MD cc: [id number] TT: 11/04/2016 13:36:57 Confirmation # [id number] Dictation # [id number] en
[2016-11-04 21:48] LABS: CHLORIDE 99 mmol/L (98-107); POTASSIUM 3.8 mmol/L (3.6-5.2); SODIUM 133 mmol/L (132-148)
[2016-11-04 21:51] LABS: BLOOD UREA NITROGEN 10 mg/dL (9-20); CARBON DIOXIDE 22 mmol/L (22-30); GFR AFRICAN-AMERICAN > 60; GLUCOSE,RANDOM 91 mg/dL (75-110)
[2016-11-04 21:52] LABS: CALCIUM 8.2 mg/dl (8.6-10.4)
[2016-11-05] MEDS: Albuterol HFA 90 mcg/actuation (8 g) INH PRN (07:45)
[2016-11-05] MEDS: Oxycodone/Acetaminophen 5/325 mg Tab PO PRN (08:26)
[2016-11-05] MEDS: cefTRIAXone IV 1 gm in Dextros 50 ML IVPB SCH (10:21)
[2016-11-05] MEDS: Vitamin B Complex/Vitamin C Tab PO SCH (10:21)
--- NOTE | 2016-11-05 10:56 | CP.PCM.PN ---
Subjective - Date & Time of Evaluation Date of Evaluation: 11/05/16 Time of Evaluation: 10:30 - Subjective Subjective: Progress note dictated #[id number] Objective - Vital Signs/Intake and Output Vital Signs (last 24 hours): Temp Pulse Resp BP Pulse Ox 98.0 F 73 20 147/80 97 11/05/16 07:07 11/05/16 07:07 11/05/16 07:07 11/05/16 07:07 11/05/16 07:07 Intake and Output: 11/05/16 11/05/16 06:59 18:59 Intake Total 1350 Output Total 2100 Balance -750 - Medications Medications: Current Medications Albuterol (Ventolin Hfa 90 Mcg/Actuation (8 G)) 1 puff INH RQ4 PRN PRN Reason: Shortness of Breath Last Admin: 11/05/16 07:45 Dose: 1 puff Famotidine (Pepcid) 20 mg PO DAILY [facility] Last Admin: 11/05/16 10:21 Dose: 20 mg Fluoxetine HCl (Prozac) 40 mg PO DAILY [facility] Last Admin: 11/05/16 10:20 Dose: 40 mg Home Med (Aclidinium [place] [Tudorza Pressair]) 400 mcg IH Q12 CARLOS Sodium Chloride (Sodium Chloride 0.9%) 1,000 mls @ 100 mls/hr IV .Q10H [facility] Last Admin: 11/04/16 12:30 Dose: 100 mls/hr Ceftriaxone Sodium (Rocephin Iv 1 Gm Duplex) 50 mls @ 100 mls/hr IVPB DAILY [facility] Last Admin: 11/05/16 10:21 Dose: 100 mls/hr Oxycodone/Acetaminophen (Percocet 5/325 Mg Tab) 1 tab PO Q6H PRN PRN Reason: Pain, moderate (4-7) Stop: 11/06/16 10:31 Last Admin: 11/05/16 08:26 Dose: 1 tab Rosuvastatin Calcium (Crestor) 40 mg PO HS [facility] Last Admin: 11/04/16 22:35 Dose: 40 mg Vitamin B Complex/Vitamin C (Berocca) 1 tab PO DAILY [facility] Last Admin: 11/05/16 10:21 Dose: 1 tab - Labs Labs: 11/04/16 07:18 11/04/16 21:32 PT 11.7 SECONDS (9.7-12.2) 11/02/16 17:32 INR 1.0 11/02/16 17:32 APTT 33 SECONDS (21-34) 11/02/16 17:32
[2016-11-05] MEDS: Albuterol-Ipratrop 3 mg / 0.5 (3 ml) UD INH SCH ×2 (13:55→19:50)
[2016-11-05] MEDS ORDERED: Iodixanol 320 MG/ML 100 ML BOTTLE IV ONE (14:25)
--- NOTE | 2016-11-05 15:35 | CT ---
CT chest with IV contrast Indication: Shortness of breath Technique: Contiguous axial images were obtained through the chest with intravenous contrast enhancement. Sagittal and coronal reconstructions were generated and reviewed. This CT exam was performed using 1 or more of the falling dose reduction techniques: Automated exposure control, adjustment of the MAA and/or kV according to patient size, and/or use of iterative reconstruction technique. IV Contrast: 100 mL Visipaque Radiation dose (DLP): 620.63 MGy-cm. Comparison: Chest x-ray performed 11/03/16 Findings: Visualized portions of the inferior thyroid gland appear unremarkable. The mediastinal and hilar vascular structures appear within normal limits. Median sternotomy wires with evidence of CABG. The heart appears within normal limits of size. Coronary artery calcifications. Mediastinal and prevascular adenopathy measuring up to 15 mm in short axis. No large central or segmental pulmonary embolus evident. No focal consolidation. No pleural effusion. No pneumothorax. No suspicious pulmonary nodules measuring greater than 5 mm. Moderate hiatal hernia/distal esophageal wall thickening. Gastroesophageal reflux. Limited visualization of the upper abdomen appears grossly unremarkable. Degenerative changes. Kyphosis. Impression: No large central or segmental pulmonary embolus evident. No focal consolidation. No pleural effusion. No pneumothorax. Moderate hiatal hernia/distal esophageal wall thickening. Gastroesophageal reflux. Median sternotomy wires with evidence of CABG. Heart size appears within normal limits. Coronary artery calcifications. Mediastinal and prevascular adenopathy measuring up to 15 mm in short axis.
--- NOTE | 2016-11-05 15:48 | CARD ---
APPROVED REPORT EKG Measurement Heart [id number] ID [id number] <Conclusion> Normal sinus rhythm Normal ECG
--- NOTE | 2016-11-05 18:19 | CP.PCM.PN ---
Subjective - Date & Time of Evaluation Date of Evaluation: 11/05/16 Time of Evaluation: 18:00 - Subjective Subjective: patient has no current chest pain. no dyspnea. Objective - Vital Signs/Intake and Output Vital Signs (last 24 hours): Temp Pulse Resp BP Pulse Ox 97.9 F 76 20 122/72 97 11/05/16 15:45 11/05/16 15:45 11/05/16 15:45 11/05/16 15:45 11/05/16 15:45 Intake and Output: 11/05/16 11/05/16 06:59 18:59 Intake Total 1350 1000 Output Total 2100 Balance -750 1000 - Medications Medications: Current Medications Albuterol (Ventolin Hfa 90 Mcg/Actuation (8 G)) 1 puff INH RQ4 PRN PRN Reason: Shortness of Breath Last Admin: 11/05/16 07:45 Dose: 1 puff Albuterol/Ipratropium (Duoneb 3 Mg/0.5 Mg (3 Ml) Ud) 3 ml INH RQ6 CARLOS Last Admin: 11/05/16 13:55 Dose: 3 ml Famotidine (Pepcid) 20 mg PO DAILY [facility] Last Admin: 11/05/16 10:21 Dose: 20 mg Fluoxetine HCl (Prozac) 40 mg PO DAILY [facility] Last Admin: 11/05/16 10:20 Dose: 40 mg Home Med (Aclidinium [place] [Tudorza Pressair]) 400 mcg IH Q12 CARLOS Ceftriaxone Sodium (Rocephin Iv 1 Gm Duplex) 50 mls @ 100 mls/hr IVPB DAILY [facility] Last Admin: 11/05/16 10:21 Dose: 100 mls/hr Oxycodone/Acetaminophen (Percocet 5/325 Mg Tab) 1 tab PO Q6H PRN PRN Reason: Pain, moderate (4-7) Stop: 11/06/16 10:31 Last Admin: 11/05/16 08:26 Dose: 1 tab Rosuvastatin Calcium (Crestor) 40 mg PO HS [facility] Last Admin: 11/04/16 22:35 Dose: 40 mg Vitamin B Complex/Vitamin C (Berocca) 1 tab PO DAILY [facility] Last Admin: 11/05/16 10:21 Dose: 1 tab - Labs Labs: 11/04/16 07:18 11/04/16 21:32 PT 11.7 SECONDS (9.7-12.2) 11/02/16 17:32 INR 1.0 11/02/16 17:32 APTT 33 SECONDS (21-34) 11/02/16 17:32 - Constitutional Appears: Non-toxic - Head Exam Head Exam: NORMAL INSPECTION - Eye Exam Eye Exam: Normal appearance - ENT Exam ENT Exam: Mucous Membranes Moist - Neck Exam Neck Exam: Full ROM - Respiratory Exam Respiratory Exam: Decreased Breath Sounds - Cardiovascular Exam Cardiovascular Exam: REGULAR RHYTHM - GI/Abdominal Exam GI & Abdominal Exam: Normal Bowel Sounds - Rectal Exam Rectal Exam: Deferred - Extremities Exam Extremities Exam: Pedal Edema - Back Exam Back Exam: NORMAL INSPECTION - Neurological Exam Neurological Exam: Alert - Psychiatric Exam Psychiatric exam: Normal Affect - Skin Skin Exam: Normal Color Assessment and Plan (1) CAD (coronary artery disease) Assessment & Plan: patient is stable after CABG. echo reviewed. normal left ventricular function. no regional wall motion abnormalities. no further inpatient cardiac workup necessary. Status: Acute (2) Hypokalemia Assessment & Plan: repleted Status: Acute
--- NOTE | 2016-11-05 23:00 | PN ---
DATE: 11/05/2016 SUBJECTIVE: The patient was seen and examined at bedside. The patient was complaining of shortness of breath and wheezing this morning and cough with yellowish sputum. Denies any fever. Denies any d izziness. Denies any chest pain. PHYSICAL EXAMINATION: GENERAL: Middle-aged male lying in bed in no acute distress. VITAL SIGNS: Blood pressure 122/72, pulse 76, respirations 20, temperature 97.9 degrees Fahrenheit, O2 sats 97% on 2 liters nasal cannula. HEENT: Pupils equal, round, reacting to light and accommodation. Extraocular muscles intact. No ic terus, no pallor. No oral thrush. No pharyngeal congestion. NECK: Supple. No JVD, no thyromegaly. CHEST: Moving equally bilaterally on respiration. LUNGS: Bilateral vesicular breath sounds, bilateral coarse wheezing heard. CARDIOVASCULAR: S1, S2 present, regular. ABDOMEN: Soft, nontender. Bowel sounds present. No guarding, no rigidity, no rebound tenderness no samina. CENTRAL NERVOUS SYSTEM: Alert, awake, oriented x 3. No focal deficits noted. EXTREMITIES: No edema. MEDICATIONS: DuoNeb, Rocephin 1 gram daily, Pepcid 20 mg daily, Prozac 40 mg p.o. daily, Percocet 1 tab q. 6 hours p.r.n., Crestor 40 mg at bedtime, vitamin B daily, sodium 133, potassium 3.8, chloride 99, bicarbonate 22, BUN 10, creatinine 0.9, glucose 91, calcium 8.2. Stool for C. diff negative. M ycoplasma negative, influenza negative and legionella negative. Urine drug screen negative. Triglyc erides 182, cholesterol 132, LDL 46, HDL 40, hemoglobin A1c 5.9. CT chest negative for PE or any inf iltrate and positive for hiatal hernia. Echogenic liver consistent with hepatic parenchymal disease o r fatty infiltration. ASSESSMENT AND PLAN: Middle-aged male with history of coronary artery disease status post coronary a rtery bypass graft, hypertension, osteoarthritis, depression, anxiety, chronic obstructive pulmonary disease, admitted for hypotension, hypokalemia, acute bronchitis with persistent cough and shortness of breath. CT of the chest negative for pulmonary embolism. We will continue with nebulizer treatme nts, continue with Rocephin. Will add cough medicine. We will continue with other current medicatio n. Cardiology consult appreciated. If patient is clinically stable and improving, we will plan disc harging the patient home in a.m. Erica Graff MD cc: [id number] TT: 11/05/2016 22:59:22 Confirmation # [id number] Dictation # [id number] ln
[2016-11-06] MEDS: guaiFENesin DM 200 mg-20 mg/10 ml UD PO PRN ×3 (01:07→18:55)
[2016-11-06] MEDS: Albuterol-Ipratrop 3 mg / 0.5 (3 ml) UD INH SCH ×4 (01:10→20:08)
--- NOTE | 2016-11-06 04:40 | CARD ---
APPROVED REPORT EXAM: Two-dimensional and M-mode echocardiogram with Doppler and color Doppler. Other Information Quality : GoodRhythm : NSR INDICATION COPD RISK FACTORS Hypertension M-Mode DIMENSIONS RVDd2.71 (2.1-3.2cm)Left Atrium (MM)3.37 (2.5-4.0cm) IVSd1.03 (0.7-1.1cm)Aortic Root3.30 (2.2-3.7cm) LVDd5.14 (4.0-5.6cm)Aortic Cusp Exc.2.74 (1.5-2.0cm) PWd1.10 (0.7-1.1cm)FS (%) 30 % LVDs3.61 (2.0-3.8cm)LVEF (%)57 (>50%) Mitral Valve MV E Rshxdtxw869.2cm/sMV A Ntdpaqid80.7cm/sE/A ratio1.5 TDI E/Lateral E'0.0E/Medial E'0.0 Tricuspid Valve TR Peak [id number]/sTR Peak [id number] LEFT VENTRICLE The left ventricle is normal size. There is normal left ventricular wall thickness. Left ventricle systolic function is normal. The Ejection Fraction is 55-60%. There is normal LV segmental wall motion. The left ventricular diastolic function is normal. RIGHT VENTRICLE The right ventricle is normal size. There is normal right ventricular wall thickness. The right ventricular systolic function is normal. ATRIA The left atrium size is normal. The right atrium size is normal. The interatrial septum is intact with no evidence for an atrial septal defect. AORTIC VALVE The aortic valve is normal in structure. No aortic regurgitation is present. There is no aortic valvular stenosis. MITRAL VALVE The mitral valve is normal in structure. There is no evidence of mitral valve prolapse. There is no mitral valve stenosis. Mitral regurgitation is mild. TRICUSPID VALVE The tricuspid valve is normal in structure. There is mild tricuspid regurgitation. Right ventricular systolic pressure is estimated at less than 30 mmHg. There is no pulmonary hypertension. PULMONIC VALVE The pulmonic valve is not well visualized. There is mild pulmonic valvular regurgitation. GREAT VESSELS The aortic root is normal in size. PERICARDIAL EFFUSION There is no significant pericardial effusion. <Conclusion> Left ventricle systolic function is normal. The Ejection Fraction is 55-60%. No aortic regurgitation is present. Mitral regurgitation is mild. There is mild tricuspid regurgitation. There is no pulmonary hypertension. There is mild pulmonic valvular regurgitation.
[2016-11-06 07:48] LABS: EOS # 0.1 K/uL (0.0-0.7); EOS % 3.7 % (0.0-4.0); HEMATOCRIT 33.1 % (35.0-51.0); LYMPH # 1.1 K/uL (1.0-4.3); LYMPH % 37.6 % (20.0-40.0); MEAN CELL VOLUME 91.9 fL (80.0-94.0); MEAN CORPUSCULAR HGB CONC 33.7 g/dL (33.0-37.0); MEAN PLATELET VOLUME 9.9 fL (7.2-11.7); MONO # 0.4 K/uL (0.0-0.8); RED CELL DISTRIBUTION WIDTH 13.8 % (11.5-14.5); WHITE BLOOD COUNT 2.8 K/uL (4.8-10.8)
[2016-11-06 07:52] LABS: CHLORIDE 103 mmol/L (98-107); POTASSIUM 3.5 mmol/L (3.6-5.2); SODIUM 137 mmol/L (132-148)
[2016-11-06 07:54] LABS: CARBON DIOXIDE 22 mmol/L (22-30); GFR AFRICAN-AMERICAN > 60
[2016-11-06 07:55] LABS: ALB/GLOB RATIO 1.1 (1.0-2.1); ALKALINE PHOSPHATASE 57 U/L (38-126); ALT/SGPT 26 U/L (21-72); AST/SGOT 33 U/L (17-59); BILIRUBIN,TOTAL 0.4 mg/dL (0.2-1.3); BLOOD UREA NITROGEN 11 mg/dL (9-20); GLUCOSE,RANDOM 103 mg/dL (75-110); TOTAL PROTEIN 6.4 g/dL (6.3-8.3)
[2016-11-06] MEDS: Oxycodone/Acetaminophen 5/325 mg Tab PO PRN ×2 (08:02→18:56)
[2016-11-06] MEDS: Vitamin B Complex/Vitamin C Tab PO SCH (10:10)
[2016-11-06] MEDS: cefTRIAXone IV 1 gm in Dextros 50 ML IVPB SCH (10:13)
--- NOTE | 2016-11-06 10:28 | CP.PCM.PN ---
Subjective - Date & Time of Evaluation Date of Evaluation: 11/06/16 Time of Evaluation: 10:15 - Subjective Subjective: Progress note dictated #[id number] Objective - Vital Signs/Intake and Output Vital Signs (last 24 hours): Temp Pulse Resp BP Pulse Ox 97.8 F 60 20 138/79 97 11/06/16 07:15 11/06/16 07:15 11/06/16 07:15 11/06/16 07:15 11/06/16 07:15 Intake and Output: 11/06/16 11/06/16 06:59 18:59 Intake Total 120 Output Total 900 Balance -780 - Medications Medications: Current Medications Albuterol (Ventolin Hfa 90 Mcg/Actuation (8 G)) 1 puff INH RQ4 PRN PRN Reason: Shortness of Breath Last Admin: 11/05/16 07:45 Dose: 1 puff Albuterol/Ipratropium (Duoneb 3 Mg/0.5 Mg (3 Ml) Ud) 3 ml INH RQ6 [facility] Last Admin: 11/06/16 08:05 Dose: 3 ml Famotidine (Pepcid) 20 mg PO DAILY [facility] Last Admin: 11/06/16 10:10 Dose: 20 mg Fluoxetine HCl (Prozac) 40 mg PO DAILY [facility] Last Admin: 11/06/16 10:10 Dose: 40 mg Guaifenesin/Dextromethorphan (Robitussin Dm) 10 ml PO Q4H PRN PRN Reason: Cough and congestion Last Admin: 11/06/16 08:02 Dose: 10 ml Home Med (Aclidinium [place] [Tudorza Pressair]) 400 mcg IH Q12 [facility] Ceftriaxone Sodium (Rocephin Iv 1 Gm Duplex) 50 mls @ 100 mls/hr IVPB DAILY [facility] Last Admin: 11/06/16 10:13 Dose: 100 mls/hr Oxycodone/Acetaminophen (Percocet 5/325 Mg Tab) 1 tab PO Q6H PRN PRN Reason: Pain, moderate (4-7) Stop: 11/06/16 10:31 Last Admin: 11/06/16 08:02 Dose: 1 tab Potassium Chloride (K-Dur 20 Meq Er Tab) 40 meq PO Q4H [facility] Stop: 11/06/16 14:31 Rosuvastatin Calcium (Crestor) 40 mg PO HS [facility] Last Admin: 11/06/16 00:12 Dose: 40 mg Vitamin B Complex/Vitamin C (Berocca) 1 tab PO DAILY [facility] Last Admin: 11/06/16 10:10 Dose: 1 tab - Labs Labs: 11/06/16 07:30 11/06/16 07:30 PT 11.7 SECONDS (9.7-12.2) 11/02/16 17:32 INR 1.0 11/02/16 17:32 APTT 33 SECONDS (21-34) 11/02/16 17:32
[2016-11-06] MEDS ORDERED: Simethicone 80 mg Chewtab PO STA (10:47)
[2016-11-06] MEDS: Potassium Chloride 20 mEq ER Tab PO SCH ×2 (11:03→14:08)
--- NOTE | 2016-11-06 19:31 | PN ---
DATE: 11/06/2016 The patient is seen and examined at bedside. The patient is feeling much better. Cough is much better. Denies any chest pain, shortness of breath. All other systems reviewed and were found to be negative. PHYSICAL EXAMINATION: GENERAL: Middle-aged male lying in bed in no acute distress. VITAL SIGNS: Blood pressure 131/77, pulse 68, respirations 20, temperature 98 degrees Fahrenheit, O2 sat is 98% on room air. HEENT: Pupils equal, round, reacting to light and accommodation. Extraocular muscles intact. No icterus, no pallor. No oral thrush. No pharyngeal congestion. NECK: Supple. No JVD. LUNGS: Bilateral vesicular breath sounds. No wheezing, no rhonchi. CARDIOVASCULAR: S1, S2 present, regular. ABDOMEN: Soft, nontender. Bowel sounds present. No guarding, no rigidity, no rebound tenderness noted. CENTRAL NERVOUS SYSTEM: Alert, awake, oriented x 3. No focal deficits noted. EXTREMITIES: No edema. Palpable peripheral pulses. MEDICATIONS: Include DuoNeb, Rocephin 1 gram daily, Pepcid 20 mg daily, Prozac 40 mg daily, Robitussin as needed, Percocet as needed, Crestor 40 mg daily, vitamin B complex. LABORATORY DATA: From this morning, WBC 2.8, hematocrit 33.1, platelets at 216. Sodium 137, potassium 3.5, chloride 103, bicarb 22, BUN 11, creatinine 0.9 , glucose 103, calcium 8.0, albumin 3.4. Stool occult blood negative. Stool leukocytes negative. Stool C. diff toxin negative. Blood cultures and urine culture negative. Ova parasites, no parasites seen. ASSESSMENT AND PLAN: A middle-aged male with history of coronary artery disease status post coronary artery bypass graft, hypertension, chronic obstructive pulmonary disease, osteoarthritis, admitted for hypotension. Now blood pressure is stable. Status post hypokalemia, now status post supplementation. Mild hypokalemia from this morning labs. Low WBC count, probably secondary to viral etiology. All the workup for sepsis is negative, Unclear why patient was hypotensive. Cardiology followup appreciated. The patient is medically stable for discharge, but patient is not cleared by physical therapy as patient has multiple steps to go to his apartment every day and physical therapy is recommending subacute rehab. tax services manager is looking into finding a subacute rehab place for the patient. Once they say he is accepted and cleared by director social, the patient may be transferred to subacute rehab or outpatient physical therapy depending on authorization. Erica Graff MD cc: [id number] TT: 11/06/2016 19:30:11 Confirmation # [id number] Dictation # [id number] chelle ROLLE
[2016-11-07] MEDS: Albuterol-Ipratrop 3 mg / 0.5 (3 ml) UD INH SCH ×4 (02:03→20:18)
[2016-11-07] MEDS: guaiFENesin DM 200 mg-20 mg/10 ml UD PO PRN (06:41)
[2016-11-07] MEDS: Oxycodone/Acetaminophen 5/325 mg Tab PO PRN ×2 (06:47→17:49)
--- NOTE | 2016-11-07 08:57 | CARD ---
APPROVED REPORT EKG Measurement Heart [id number] NM [id number] <Conclusion> Poor data quality, interpretation may be adversely affected Normal sinus rhythm Prolonged QT Abnormal ECG
[2016-11-07] MEDS: cefTRIAXone IV 1 gm in Dextros 50 ML IVPB SCH (09:59)
[2016-11-07] MEDS: Vitamin B Complex/Vitamin C Tab PO SCH (09:59)
--- NOTE | 2016-11-07 10:59 | CP.PCM.PN ---
Subjective - Date & Time of Evaluation Date of Evaluation: 11/07/16 Time of Evaluation: 10:40 - Subjective Subjective: Progress note dictated #[id number] Objective - Vital Signs/Intake and Output Vital Signs (last 24 hours): Temp Pulse Resp BP Pulse Ox 97.5 F L 76 20 131/81 96 11/07/16 07:17 11/07/16 07:17 11/07/16 07:17 11/07/16 07:17 11/07/16 07:17 Intake and Output: 11/07/16 11/07/16 06:59 18:59 Intake Total 360 Output Total 1000 Balance -640 - Medications Medications: Current Medications Albuterol (Ventolin Hfa 90 Mcg/Actuation (8 G)) 1 puff INH RQ4 PRN PRN Reason: Shortness of Breath Last Admin: 11/05/16 07:45 Dose: 1 puff Albuterol/Ipratropium (Duoneb 3 Mg/0.5 Mg (3 Ml) Ud) 3 ml INH RQ6 [facility] Last Admin: 11/07/16 07:36 Dose: 3 ml Famotidine (Pepcid) 20 mg PO DAILY [facility] Last Admin: 11/07/16 09:59 Dose: 20 mg Fluoxetine HCl (Prozac) 40 mg PO DAILY [facility] Last Admin: 11/07/16 10:00 Dose: 40 mg Guaifenesin/Dextromethorphan (Robitussin Dm) 10 ml PO Q4H PRN PRN Reason: Cough and congestion Last Admin: 11/07/16 06:41 Dose: 10 ml Home Med (Aclidinium [place] [Tudorza Pressair]) 400 mcg IH Q12 [facility] Ceftriaxone Sodium (Rocephin Iv 1 Gm Duplex) 50 mls @ 100 mls/hr IVPB DAILY [facility] Last Admin: 11/07/16 09:59 Dose: 100 mls/hr Oxycodone/Acetaminophen (Percocet 5/325 Mg Tab) 1 tab PO Q6H PRN PRN Reason: Pain, moderate (4-7) Stop: 11/09/16 17:36 Last Admin: 11/07/16 06:47 Dose: 1 tab Rosuvastatin Calcium (Crestor) 40 mg PO HS [facility] Last Admin: 11/06/16 22:36 Dose: 40 mg Vitamin B Complex/Vitamin C (Berocca) 1 tab PO DAILY [facility] Last Admin: 11/07/16 09:59 Dose: 1 tab - Labs Labs: 11/06/16 07:30 11/06/16 07:30 PT 11.7 SECONDS (9.7-12.2) 11/02/16 17:32 INR 1.0 11/02/16 17:32 APTT 33 SECONDS (21-34) 11/02/16 17:32
--- NOTE | 2016-11-07 17:04 | PN ---
DATE: 11/07/2016 The patient was seen and examined this morning at bedside. The patient is feeling much better. Awaiting for subacute rehab placement. Denies any chest pain, shortness of breath or wheezing. Denies any nausea, vomiting, abdominal pain, diarrhea or constipation. Denies any dizziness. Complaining of bilateral knee joint pain. PHYSICAL EXAMINATION: GENERAL: Middle-aged male, lying in bed, in no acute distress. VITAL SIGNS: Blood pressure 131/81, pulse 76, respirations 20, temperature 97.8 degrees Fahrenheit, O2 sat is 96% on room air. HEENT: Pupils equal, round, reacting to light and accommodation. Extraocular muscles intact. No icterus, no pallor. No oral thrush. No pharyngeal congestion. NECK: Supple. No JVD. No thyromegaly. CHEST: Moving equally bilaterally on respiration. LUNGS: Bilateral vesicular breath sounds. No wheezing, no rhonchi. CARDIOVASCULAR: S1, S2 present, regular. ABDOMEN: Soft, nontender. Bowel sounds present. No guarding, no rigidity, no rebound tenderness noted. CENTRAL NERVOUS SYSTEM: Alert, awake, oriented x 3. No focal deficits noted. EXTREMITIES: No edema. Palpable peripheral pulses. MEDICATIONS: Include DuoNeb, Rocephin, Pepcid, Prozac, Robitussin, Percocet, Crestor, Spiriva, vitamin B complex. No new labs from this morning. ASSESSMENT AND PLAN: Middle-aged male with history of hypertension, anxiety, depression, osteoarthritis, chronic obstructive pulmonary disease, ethyl alcohol abuse, coronary artery disease, status post coronary artery bypass graft. Admitted for hypotension, hypokalemia. All the workup for sepsis negative. All the cultures negative. The patient is having acute bronchitis, for which he has been getting antibiotics. The patient is cleared medically, but awaiting for subacute rehab placement. The patient may be discharged to subacute rehab when bed available. Will continue with current medication. The patient may be transferred to subacute rehab when bed available. Erica Graff MD cc: [id number] TT: 11/07/2016 17:03:34 Confirmation # [id number] Dictation # [id number] en MTDD
[2016-11-08] MEDS: Albuterol-Ipratrop 3 mg / 0.5 (3 ml) UD INH SCH ×4 (02:12→19:49)
[2016-11-08 07:52] LABS: BASO % 1.2 % (0.0-2.0); EOS # 0.2 K/uL (0.0-0.7); EOS % 4.9 % (0.0-4.0); HEMATOCRIT 35.9 % (35.0-51.0); LYMPH # 1.5 K/uL (1.0-4.3); LYMPH % 38.9 % (20.0-40.0); MEAN CELL VOLUME 92.4 fL (80.0-94.0); MEAN CORPUSCULAR HEMOGLOBIN 30.7 pg (27.0-31.0); MEAN CORPUSCULAR HGB CONC 33.2 g/dL (33.0-37.0); MEAN PLATELET VOLUME 9.5 fL (7.2-11.7); MONO # 0.5 K/uL (0.0-0.8); RED CELL DISTRIBUTION WIDTH 14.1 % (11.5-14.5); WHITE BLOOD COUNT 3.8 K/uL (4.8-10.8)
[2016-11-08 08:06] LABS: CHLORIDE 103 mmol/L (98-107); SODIUM 137 mmol/L (132-148)
[2016-11-08 08:07] LABS: POTASSIUM 5.2 mmol/L (3.6-5.2)
[2016-11-08 08:09] LABS: ALB/GLOB RATIO 1.1 (1.0-2.1); ALKALINE PHOSPHATASE 62 U/L (38-126); ALT/SGPT 27 U/L (21-72); AST/SGOT 32 U/L (17-59); BILIRUBIN,TOTAL 0.5 mg/dL (0.2-1.3); BLOOD UREA NITROGEN 10 mg/dL (9-20); CARBON DIOXIDE 25 mmol/L (22-30); GFR AFRICAN-AMERICAN > 60; GLUCOSE,RANDOM 98 mg/dL (75-110); TOTAL PROTEIN 7.3 g/dL (6.3-8.3)
[2016-11-08] MEDS: Tiotropium 18 mcg Cap For Inhalation INH SCH ×2 (09:34→13:52)
[2016-11-08] MEDS: Vitamin B Complex/Vitamin C Tab PO SCH (09:48)
[2016-11-08] MEDS: guaiFENesin DM 200 mg-20 mg/10 ml UD PO PRN (09:49)
[2016-11-08] MEDS: Oxycodone/Acetaminophen 5/325 mg Tab PO PRN ×2 (09:49→21:17)
[2016-11-08] MEDS: cefTRIAXone IV 1 gm in Dextros 50 ML IVPB SCH (09:51)
--- NOTE | 2016-11-08 10:51 | CP.PCM.PN ---
Subjective - Date & Time of Evaluation Date of Evaluation: 11/08/16 Time of Evaluation: 10:40 - Subjective Subjective: Progress note dictated #[id number] Objective - Vital Signs/Intake and Output Vital Signs (last 24 hours): Temp Pulse Resp BP Pulse Ox 97.6 F 60 20 144/91 H 95 11/08/16 08:03 11/08/16 08:03 11/08/16 08:03 11/08/16 08:03 11/08/16 08:03 Intake and Output: 11/08/16 11/08/16 06:59 18:59 Intake Total 650 250 Output Total 500 400 Balance 150 -150 - Medications Medications: Current Medications Albuterol (Ventolin Hfa 90 Mcg/Actuation (8 G)) 1 puff INH RQ4 PRN PRN Reason: Shortness of Breath Last Admin: 11/05/16 07:45 Dose: 1 puff Albuterol/Ipratropium (Duoneb 3 Mg/0.5 Mg (3 Ml) Ud) 3 ml INH RQ6 [facility] Last Admin: 11/08/16 09:33 Dose: Not Given Aspirin (Aspirin Chewable) 81 mg PO DAILY [facility] Last Admin: 11/08/16 09:47 Dose: 81 mg Clopidogrel Bisulfate (Plavix) 75 mg PO DAILY [facility] Last Admin: 11/08/16 09:49 Dose: 75 mg Famotidine (Pepcid) 20 mg PO DAILY [facility] Last Admin: 11/08/16 09:49 Dose: 20 mg Fluoxetine HCl (Prozac) 40 mg PO DAILY [facility] Last Admin: 11/08/16 09:49 Dose: 40 mg Guaifenesin/Dextromethorphan (Robitussin Dm) 10 ml PO Q4H PRN PRN Reason: Cough and congestion Last Admin: 11/08/16 09:49 Dose: 10 ml Ceftriaxone Sodium (Rocephin Iv 1 Gm Duplex) 50 mls @ 100 mls/hr IVPB DAILY [facility] Last Admin: 11/08/16 09:51 Dose: 100 mls/hr Oxycodone/Acetaminophen (Percocet 5/325 Mg Tab) 1 tab PO Q6H PRN PRN Reason: Pain, moderate (4-7) Stop: 11/09/16 17:36 Last Admin: 11/08/16 09:49 Dose: 1 tab Rosuvastatin Calcium (Crestor) 40 mg PO HS [facility] Last Admin: 11/07/16 21:36 Dose: Not Given Tiotropium [place] (Spiriva) 18 mcg INH RQ24 [facility] Last Admin: 11/08/16 09:34 Dose: Not Given Vitamin B Complex/Vitamin C (Berocca) 1 tab PO DAILY [facility] Last Admin: 11/08/16 09:48 Dose: 1 tab - Labs Labs: 11/08/16 07:42 11/08/16 07:42 PT 11.7 SECONDS (9.7-12.2) 11/02/16 17:32 INR 1.0 11/02/16 17:32 APTT 33 SECONDS (21-34) 11/02/16 17:32
--- NOTE | 2016-11-08 16:18 | PN ---
DATE: 11/08/2016 The patient is seen and examined. The patient is feeling much better. Denies any headache, dizzines s. Complaining of cough, intermittent; better with cough medicine. Leg pains are better with Percoc et. Denies any other complaints. PHYSICAL EXAMINATION: GENERAL: Middle-aged male lying in bed, in no acute distress. VITAL SIGNS: Blood pressure 144/91, pulse 60, respirations 20, temperature 97.6 degrees Fahrenheit, O2 sat is 97% on room air. HEENT: Pupils equal, round, reacting to light and accommodation. Extraocular muscles intact. No ic terus, no pallor. No oral thrush. NECK: Supple. No JVD. LUNGS: Bilaterally with clear breath sounds. No wheezing, no rhonchi. CARDIOVASCULAR: S1, S2 present, regular. ABDOMEN: Soft, nontender. Bowel sounds present. No guarding, no rigidity, no rebound tenderness no samina. CENTRAL NERVOUS SYSTEM: Alert, awake, oriented x 3. No focal deficits noted. EXTREMITIES: No edema. Palpable peripheral pulses. MEDICATIONS: Include Ventolin, aspirin, Plavix, Pepcid, Prozac, Robitussin, Percocet, Crestor, Spiri va, vitamin B complex. LABORATORY DATA: From this morning, WBC 3.8, hemoglobin 11.9, hematocrit 35.9, platelets 248. Sodiu m 137, potassium 5.2, chloride 103, bicarbonate 25, BUN 10, creatinine 1.0, glucose 98, calcium 9.0. LFTs within normal limits. ASSESSMENT AND PLAN: Middle-aged male with history of coronary artery disease status post coronary a rtery bypass graft, hypertension, hyperlipidemia, anxiety, depression, osteoarthritis, chronic obstru ctive pulmonary disease. Admitted for hypotension, hypokalemia. Sepsis workup is negative. All the cultures negative. The patient's blood pressure improved off medication. Will continue with curren t medication. The patient is awaiting for authorization for subacute rehab placement from insurance. The patient is not cleared by physical therapy, as patient has 40 steps to walk to his house; becau se of osteoarthritis, not able to ambulate. Awaiting for insurance approval for subacute rehab place ment. The patient is otherwise medically stable for transfer when bed available. Will continue with current medication. I discussed with case management. Erica Graff MD cc: [id number] TT: 11/08/2016 16:17:26 [facility] # [id number] Dictation # [id number] mn
[2016-11-09] MEDS: Albuterol-Ipratrop 3 mg / 0.5 (3 ml) UD INH SCH ×3 (02:41→13:46)
[2016-11-09] MEDS: Tiotropium 18 mcg Cap For Inhalation INH SCH (08:10)
[2016-11-09 09:02] VITALS: BP 129/85; PULSE 68; TEMP 97.9; O2SAT 95
[2016-11-09] MEDS: Vitamin B Complex/Vitamin C Tab PO SCH (10:03)
[2016-11-09] MEDS: guaiFENesin DM 200 mg-20 mg/10 ml UD PO PRN (10:08)
[2016-11-09] MEDS: Oxycodone/Acetaminophen 5/325 mg Tab PO PRN (10:08)
--- NOTE | 2016-11-09 11:56 | CP.PCM.PN ---
Subjective - Date & Time of Evaluation Date of Evaluation: 11/09/16 Time of Evaluation: 11:45 - Subjective Subjective: discharge summary dictated #[id number] Objective - Vital Signs/Intake and Output Vital Signs (last 24 hours): Temp Pulse Resp BP Pulse Ox 97.9 F 68 20 129/85 95 11/09/16 09:01 11/09/16 09:01 11/09/16 09:01 11/09/16 09:01 11/09/16 09:01 Intake and Output: 11/09/16 11/09/16 06:59 18:59 Intake Total 150 Output Total 400 Balance -250 - Medications Medications: Current Medications Albuterol (Ventolin Hfa 90 Mcg/Actuation (8 G)) 1 puff INH RQ4 PRN PRN Reason: Shortness of Breath Last Admin: 11/05/16 07:45 Dose: 1 puff Albuterol/Ipratropium (Duoneb 3 Mg/0.5 Mg (3 Ml) Ud) 3 ml INH RQ6 [facility] Last Admin: 11/09/16 08:10 Dose: 3 ml Aspirin (Aspirin Chewable) 81 mg PO DAILY [facility] Last Admin: 11/09/16 10:03 Dose: 81 mg Clopidogrel Bisulfate (Plavix) 75 mg PO DAILY [facility] Last Admin: 11/09/16 10:03 Dose: 75 mg Famotidine (Pepcid) 20 mg PO DAILY [facility] Last Admin: 11/09/16 10:03 Dose: 20 mg Fluoxetine HCl (Prozac) 40 mg PO DAILY [facility] Last Admin: 11/09/16 10:03 Dose: 40 mg Guaifenesin/Dextromethorphan (Robitussin Dm) 10 ml PO Q4H PRN PRN Reason: Cough and congestion Last Admin: 11/09/16 10:08 Dose: 10 ml Oxycodone/Acetaminophen (Percocet 5/325 Mg Tab) 1 tab PO Q6H PRN PRN Reason: Pain, moderate (4-7) Stop: 11/09/16 17:36 Last Admin: 11/09/16 10:08 Dose: 1 tab Rosuvastatin Calcium (Crestor) 40 mg PO HS [facility] Last Admin: 11/08/16 21:15 Dose: 40 mg Tiotropium [place] (Spiriva) 18 mcg INH RQ24 [facility] Last Admin: 11/09/16 08:10 Dose: 18 mcg Vitamin B Complex/Vitamin C (Berocca) 1 tab PO DAILY [facility] Last Admin: 11/09/16 10:03 Dose: 1 tab - Labs Labs: 11/08/16 07:42 11/08/16 07:42 PT 11.7 SECONDS (9.7-12.2) 11/02/16 17:32 INR 1.0 11/02/16 17:32 APTT 33 SECONDS (21-34) 11/02/16 17:32
--- NOTE | 2016-11-20 11:11 | DS ---
DISCHARGE DIAGNOSES: Coronary artery disease, status post bypass grafting, hypertension, hyperlipidemia, anxiety, depression, osteoarthritis, chronic obstructive pulmonary disease, status post hypotension, status post hypokalemia , sepsis ruled out, debility, difficulty ambulation. HISTORY OF PRESENT ILLNESS: The patient is a 61-year-old male with past medical history of CAD, status post CABG, hypertension, osteoarthritis, anxiety , depression, hyperlipidemia, COPD who has been following up with Dr. Yun as primary care physician, came in to the ED after patient was found to be very hypotensive by his primary care physician. In the ED also, the patient was found to be hypotensive, received fluid resuscitation, but continuously hypotensive with elevated WBC count and the patient is being admitted. On the day of discharge, the patient is feeling much better. Denies any headache, dizziness. Denies any chest pain, shortness of breath or wheezing. Denies any nausea, vomiting, abdominal pain, diarrhea or constipation. Denies any urinary complaints. Denies any leg pains or leg cramps. Denies any other neurologic symptoms. All other systems reviewed and were found to be negative. PHYSICAL EXAMINATION: GENERAL: Middle-aged male lying in bed in no acute distress. VITAL SIGNS: Blood pressure 127/73, pulse 69, respiration 20, temperature 97.8 degrees Fahrenheit, O2 sat is 97% on room air. HEENT: Pupils equal, round, reacting to light and accommodation. Extraocular muscles intact. No icterus, no pallor. No oral thrush. No pharyngeal congestion. No nasal congestion. NECK: Supple. No JVD. LUNGS: Bilateral vesicular breath sounds. No wheezing, no rhonchi. CARDIOVASCULAR: S1, S2 present, regular. ABDOMEN: Soft, nontender. Bowel sounds present. No guarding, no rigidity, no rebound tenderness noted. CENTRAL NERVOUS SYSTEM: Alert, awake, oriented x 3. No focal deficits noted. LABORATORY DATA: Labs done on the day of discharge: WBC 3.8, hemoglobin 11.9, hematocrit 35.9, platelets 248. Sodium 137, potassium 5.2, chloride 103, bicarb 27, BUN 10, creatinine 1.0. LFTs within normal limits. Stool for occult blood negative. Stool leukocytes negative. Blood culture x 2 negative. Urine culture negative. Stool ova and parasites negative. Chest x-ray negative for any infiltrate. CT chest done. It was negative for any PE. Abdominal ultrasound is also negative other than fatty infiltration. HOSPITAL COURSE: The patient was admitted to the hospital for possible sepsis and acute bronchitis. The patient was started on IV antibiotics. All the cultures were negative. The patient was ruled out for any acute LA, evaluated by cardiology. No further cardiac workup recommended. The patient was evaluated by physical therapy as the patient is supposed to climb the stairs for his house, waited for a few days for insurance approval for subacute rehab placement. Insurance denied subacute rehab placement, so patient is being discharged home with outpatient physical therapy. Advised patient to follow up with his PMD, his field map technician and the patient was not started on any antihypertensive medication. As his blood pressures were running low, advised to follow up with PMD for adjustment of his medication. The patient understands the need for followup with doctors. CONDITION UPON DISCHARGE: The patient is alert, awake, oriented x 3 and hemodynamically stable. DISCHARGE INSTRUCTIONS: Follow up with PMD, follow up with field map technician. Outpatient physical therapy. DISCHARGE DIET: Low sodium, low cholesterol, 1800 calorie ADA heart healthy diet. ACTIVITY: As tolerated. DISCHARGE MEDICATIONS: Please refer to the discharge medication list. Advised patient to return to the ED if any worsening of symptoms. Erica Graff MD cc: [id number] TT: 11/20/2016 11:10:30 tn MTDD
== END 2016-11-09 17:00 | disposition home or self-care (01) | DRG 88 ==
LOC: C.ER 16:26 → C.9E 21:03 → C.6T 22:04 → C.3T 11-07 10:32 → C.6T 11-07 11:05 → C.3T 11-07 11:29
PROVIDERS: ADMIT Internal Medicine; ATTEND Internal Medicine
DX: J44.0 Chronic obstructive pulmonary disease with (acute) lower respiratory infection (principal); I95.9 Hypotension, unspecified; E87.6 Hypokalemia; J20.9 Acute bronchitis, unspecified; I25.10 Atherosclerotic heart disease of native coronary artery without angina pectoris; M19.90 Unspecified osteoarthritis, unspecified site; F32.9 Major depressive disorder, single episode, unspecified; F41.9 Anxiety disorder, unspecified; E78.5 Hyperlipidemia, unspecified; E78.00 Pure hypercholesterolemia, unspecified; J45.909 Unspecified asthma, uncomplicated; D72.819 Decreased white blood cell count, unspecified; I10 Essential (primary) hypertension; F10.10 Alcohol abuse, uncomplicated; Z95.1 Presence of aortocoronary bypass graft; Z87.891 Personal history of nicotine dependence; Z82.61 Family history of arthritis; R53.81 Other malaise; R26.2 Difficulty in walking, not elsewhere classified

== ENCOUNTER 2018-10-14 20:30 | Observation (INO) | payer MEDICAID ==
[2018-10-14] MEDS ORDERED: Sodium Chloride 0.9% 1,000 ML IV ONE (22:00)
[2018-10-14] MEDS ORDERED: Pantoprazole 80 MG in Sodium Chloride 0.9% 100 ML IV STA (22:00)
--- NOTE | 2018-10-14 22:00 | C.PDOC ---
History Of Present Illness Patient presents to the ED c/o CP, SOB and also reporting black tarry stools. Patient denies fever, chills, nausea, vomit, diarrhea, rash, CP, SOB, palpitations, weakness, numbness, dizziness. Time Seen by Provider: 10/14/18 21:59 Chief Complaint (Nursing): Chest Pain History Per: Patient History/Exam Limitations: no limitations Onset/Duration Of Symptoms: Days Current Symptoms Are (Timing): Still Present Context: Other Severity: Moderate Pain Scale Rating Of: 4 Quality: Dull, Tightness Associated Symptoms: Dyspnea Modifying Factors: None Exacerbating Factors: None Alleviating Factors: None Recent travel outside of the [place]: No Additional History Per: Patient Past Medical History Reviewed: Historical Data, Nursing Documentation, Vital Signs Vital Signs: Last Vital Signs Temp 97.9 F 10/14/18 20:36 Pulse 84 10/14/18 20:36 Resp 20 10/14/18 20:36 BP 152/85 H 10/14/18 20:36 Pulse Ox 97 10/14/18 20:36 - Medical History PMH: Arthritis, Asthma, Bronchitis, COPD, Depression, Emphysema, HTN Denies: Deep Vein Thrombosis, Chronic Kidney Disease Comment Only: CHF (CABG) Surgical History: No Surg Hx Denies: Pacemaker - [facility] Procedures DRAINAGE OF LEFT KNEE JOINT, PERCUTANEOUS APPROACH (08/14/18) INSERTION OF INFUSION DEV INTO SUP VENA CAVA, PERC APPROACH (08/14/18) ULTRASONOGRAPHY OF SUPERIOR VENA CAVA, GUIDANCE (08/14/18) Family History: States: Unknown Family Hx - Social History Hx Tobacco Use: No Hx Alcohol Use: Yes Hx Substance Use: No - Immunization History Hx Influenza Vaccination: Yes Hx Pneumococcal Vaccination: Yes Review Of Systems Constitutional: Negative for: Fever, Chills ENT: Negative for: Throat Pain Cardiovascular: Positive for: Chest Pain. Negative for: Palpitations Respiratory: Positive for: Shortness of Breath Gastrointestinal: Positive for: Melena. Negative for: Nausea, Vomiting, Abdominal Pain Genitourinary: Negative for: Dysuria Musculoskeletal: Negative for: Back Pain Skin: Negative for: Rash Neurological: Negative for: Weakness, Numbness Psych: Negative for: Anxiety Physical Exam - Physical Exam Appears: Non-toxic, No Acute Distress Skin: Warm, Dry, Pale Head: Normacephalic Eye(s): right: Other (blind) Oral Mucosa: Moist Neck: Supple Chest: Symmetrical Cardiovascular: Rhythm Regular Respiratory: No Rales, No Rhonchi, No Wheezing Gastrointestinal/Abdominal: Bowel Sounds (active), Soft, No Tenderness, Distention, No Guarding, No Rebound Rectal: Heme Negative, Maroon Stool Back: No CVA Tenderness Extremity: No Tenderness, Swelling Extremity: Bilateral: Atraumatic, Normal Color And Temperature, Normal ROM, Painful To Bear Weight Pulses: Left Dorsalis Pedis: Normal, Right Dorsalis Pedis: Normal Neurological/Psych: Oriented x3, Normal Speech, Normal Cognition Gait: With Assistance ED Course And Treatment - Laboratory Results Result Diagrams: 10/14/18 22:47 10/14/18 22:47 ECG: Interpreted By Me, Viewed By Me ECG Rhythm: Sinus Rhythm (77), Nonspecific Changes O2 Sat by Pulse Oximetry: 97 (ON RA) Pulse Ox Interpretation: Normal - Radiology CXR: Interpreted by Me, Viewed By Me Progress Note: Plan: - EKG. - Labs. - CXR. - IV fluids. - Protonix 40 mg IVP. - UA. - Zofran 4 mg IVP Disposition Discussed With Dr.: Maxime Gooden Comment: accepted the pt on his service and took over the care at 1:44 AM Doctor Will See Patient In The: Hospital Counseled Patient/Family Regarding: Studies Performed, Diagnosis - Disposition Disposition: HOSPITALIZED Disposition Time: 21:59 Condition: FAIR Forms: [facility] ([place]an) - Clinical Impression Clinical Impression: Chest pain, COPD (chronic obstructive pulmonary disease) - Scribe Statement The provider has reviewed the documentation as recorded by the Scribe Godwin Diane All medical record entries made by the Scribe were at my direction and personally dictated by me. I have reviewed the chart and agree that the record accurately reflects my personal performance of the history, physical exam, medical decision making, and the department course for this patient. I have also personally directed, reviewed, and agree with the discharge instructions and disposition. Decision To Admit - Pt Status Changed To: Hospital Disposition Of: Observation - . Bed Request Type: Telemetry Admitting Physician: Maxime Gooden Patient Diagnosis: Chest pain, COPD (chronic obstructive pulmonary disease)
[2018-10-14 22:56] LABS: BASO # 0.2 K/uL (0.0-0.2); BASO % 2.4 % (0.0-2.0); EOS # 0.6 K/uL (0.0-0.7); EOS % 8.2 % (0.0-4.0); HEMOGLOBIN 10.4 g/dL (12.0-18.0); LYMPH # 2.1 K/uL (1.0-4.3); LYMPH % 26.6 % (20.0-40.0); MEAN CELL VOLUME 91.9 fL (80.0-94.0); MEAN CORPUSCULAR HEMOGLOBIN 30.5 pg (27.0-31.0); MEAN CORPUSCULAR HGB CONC 33.2 g/dL (33.0-37.0); MEAN PLATELET VOLUME 9.3 fL (7.2-11.7); MONO # 0.8 K/uL (0.0-0.8); MONO % 10.7 % (0.0-10.0); NEUT # 4.1 K/uL (1.8-7.0); NEUT % 52.1 % (50.0-75.0); NRBC % 0.1 % (0.0-2.0); RBC 3.41 Mil/uL (4.40-5.90); WHITE BLOOD COUNT 7.8 K/uL (4.8-10.8)
[2018-10-14 23:03] LABS: ALB/GLOB RATIO 1.3 (1.0-2.1); ALBUMIN 3.7 g/dL (3.5-5.0); ALT/SGPT 16 U/L (21-72); AST/SGOT 25 U/L (17-59); BLOOD UREA NITROGEN 8 mg/dL (9-20); CALCIUM 8.8 mg/dl (8.6-10.4); GFR NON-AFRICAN AMERICAN > 60; LIPASE 119 U/L (23-300)
[2018-10-14 23:06] LABS: INR 1.1; PROTHROMBIN TIME 11.6 SECONDS (9.7-12.2)
[2018-10-15 01:24] LABS: URINE BILIRUBIN NEGATIVE (NEGATIVE); URINE BLOOD NEGATIVE (NEGATIVE); URINE CLARITY Clear (Clear); URINE COLOR Straw (YELLOW); URINE GLUCOSE (UA) NORMAL (Normal); URINE LEUKOCYTE ESTERASE NEG Leu/uL (Negative); URINE PROTEIN NEGATIVE (NEGATIVE); URINE UROBILINOGEN NORMAL mg/dL (0.2-1.0)
[2018-10-15] MEDS ORDERED: Pantoprazole 80 MG in Sodium Chloride 0.9% 100 ML IVP SCH (03:00)
--- NOTE | 2018-10-15 07:22 | CP.PCM.CON ---
<Riley Barillas - Last Filed: 10/15/18 10:16> History of Present Illness - History of Present Illness History of Present Illness: GI fellow PGY4, consult note Casey Goetz is a 63M with history of alcoholism and CABG who presented last night to the ER for chest pain. We were consulted for possible GI bleed. Patient states he has been having chest tightness and SOB similar to previous episode of angina. He had CABG 5-7 years ago. He states he has seen red and black stool for the last several days. He admits diarrhea x8 episodes in the last 2 days and associated lightheadedness.. He is taking plavix, aspirin and motrin 2x per day for joint pain. He denies abdominal pain, but admits frequent heartburn. He has been taking PPI daily. He denies history of GI bleeds and has never had and EGD. His last colonosocpy was ~7 years ago [place] [facility] [place], reports few polyps. Nursing reports normal BM today. PMHx - alcoholism, CAD, HTN, depression, GERD PSHx - Colonoscopy, CABG FMHx - Denies GI related cancers SocHx - Stopped smoking cigarettes 7 years ago. Continues to drink alcohol at least 7 beers per day. 12pt ROS completed and negative except for above. Past Patient History - Infectious Disease Hx of Infectious Diseases: None - Tetanus Immunizations Tetanus Immunization: Unknown - Past Medical History & Family History Past Medical History?: Yes - Past Social History Smoking Status: Former Smoker - CARDIAC Hx Congestive Heart Failure: (CABG) Hx Hypertension: Yes Hx Pacemaker: No - PULMONARY Hx Asthma: Yes Hx Bronchitis: Yes Hx Chronic Obstructive Pulmonary Disease (COPD): Yes Hx Emphysema: Yes - NEUROLOGICAL Hx Neurological Disorder: No - HEENT Hx HEENT Problems: No - RENAL Hx Chronic Kidney Disease: No - ENDOCRINE/METABOLIC Hx Endocrine Disorders: No - HEMATOLOGICAL/ONCOLOGICAL Hx Blood Disorders: No Hx Cancer: No - INTEGUMENTARY Hx Dermatological Problems: No - MUSCULOSKELETAL/RHEUMATOLOGICAL Hx Arthritis: Yes - GASTROINTESTINAL Hx Gastrointestinal Disorders: No - GENITOURINARY/GYNECOLOGICAL Hx Genitourinary Disorders: No - PSYCHIATRIC Hx Depression: Yes Hx Substance Use: No - SURGICAL HISTORY Hx Surgeries: Yes Hx Mastectomy: No Other/Comment: BYPASS SURGURY - ANESTHESIA Hx Anesthesia: Yes Hx Anesthesia Reactions: No Meds Allergies/Adverse Reactions: Allergies Allergy/AdvReac Type Severity Reaction Status Date / Time No Known Allergies Allergy Verified 10/14/18 20:42 - Medications Medications: Current Medications Pantoprazole Sodium 80 mg/ (Sodium Chloride) 100 mls @ 10 mls/hr IVP .Q10H CARLOS Last Admin: 10/15/18 04:05 Dose: 10 mls/hr Physical Exam - Constitutional Appears: Non-toxic, No Acute Distress - Head Exam Head Exam: ATRAUMATIC, NORMAL INSPECTION - Eye Exam Eye Exam: EOMI, Normal appearance - Respiratory Exam Respiratory Exam: Clear to Auscultation Bilateral, NORMAL BREATHING PATTERN - Cardiovascular Exam Cardiovascular Exam: REGULAR RHYTHM, +S1, +S2 - GI/Abdominal Exam GI & Abdominal Exam: Normal Bowel Sounds, Organomegaly, Soft. absent: Tenderness - Rectal Exam Rectal Exam: NORMAL INSPECTION. absent: Black Stool, Bloody Stool - Extremities Exam Extremities exam: Positive for: normal inspection. Negative for: pedal edema - Neurological Exam Neurological exam: Alert, CN II-XII Intact, Oriented x3 - Psychiatric Exam Psychiatric exam: Normal Affect, Normal Mood - Skin Skin Exam: Normal Color, Warm Results - Vital Signs Recent Vital Signs: Last Vital Signs Temp 98.7 F 10/15/18 03:55 Pulse 88 10/15/18 03:55 Resp 20 10/15/18 03:55 BP 148/88 10/15/18 03:55 Pulse Ox 97 10/15/18 03:55 - Labs Result Diagrams: 10/15/18 08:10 10/15/18 08:10 Labs: Laboratory Results - last 24 hr 10/14/18 10/14/18 10/14/18 22:34 22:47 22:47 WBC 7.8 D RBC 3.41 L Hgb 10.4 L Hct 31.4 L MCV 91.9 MCH 30.5 MCHC 33.2 RDW 14.0 Plt Count 232 MPV 9.3 Neut % (Auto) 52.1 Lymph % (Auto) 26.6 [place] % (Auto) 10.7 H Eos % (Auto) 8.2 H Baso % (Auto) 2.4 H Neut # (Auto) 4.1 Lymph # (Auto) 2.1 [place] # (Auto) 0.8 Eos # (Auto) 0.6 Baso # (Auto) 0.2 PT 11.6 INR 1.1 APTT 30 Sodium Potassium Chloride Carbon Dioxide Anion Gap BUN Creatinine Est GFR ( Amer) Est GFR (Non-Af Amer) Random Glucose Calcium Total Bilirubin AST ALT Alkaline Phosphatase Troponin I Total Protein Albumin Globulin Albumin/Globulin Ratio Lipase Urine Color Urine Clarity Urine pH Ur Specific [place] Urine Protein Urine Glucose (UA) Urine Ketones Urine Blood Urine Nitrate Urine Bilirubin Urine Urobilinogen Ur Leukocyte Esterase Stool Occult Blood Negative Alcohol, Quantitative Blood Type Antibody Screen 10/14/18 10/14/18 10/15/18 22:47 22:47 01:05 WBC RBC Hgb Hct MCV MCH MCHC RDW Plt Count MPV Neut % (Auto) Lymph % (Auto) [place] % (Auto) Eos % (Auto) Baso % (Auto) Neut # (Auto) Lymph # (Auto) [place] # (Auto) Eos # (Auto) Baso # (Auto) PT INR APTT Sodium 135 Potassium 3.3 L Chloride 102 Carbon Dioxide 22 Anion Gap 14 BUN 8 L Creatinine 0.8 Est GFR ( Amer) > 60 Est GFR (Non-Af Amer) > 60 Random Glucose 86 Calcium 8.8 Total Bilirubin 0.2 AST 25 ALT 16 L D Alkaline Phosphatase 72 Troponin I < 0.0120 Total Protein 6.5 Albumin 3.7 Globulin 2.8 Albumin/Globulin Ratio 1.3 Lipase 119 Urine Color Straw Urine Clarity Clear Urine pH 6.0 Ur Specific [place] 1.004 Urine Protein Negative Urine Glucose (UA) Normal Urine Ketones Negative Urine Blood Negative Urine Nitrate Negative Urine Bilirubin Negative Urine Urobilinogen Normal Ur Leukocyte Esterase Neg Stool Occult Blood Alcohol, Quantitative Blood Type A POSITIVE Antibody Screen Negative 10/15/18 02:18 WBC RBC Hgb Hct MCV MCH MCHC RDW Plt Count MPV Neut % (Auto) Lymph % (Auto) [place] % (Auto) Eos % (Auto) Baso % (Auto) Neut # (Auto) Lymph # (Auto) [place] # (Auto) Eos # (Auto) Baso # (Auto) PT INR APTT Sodium Potassium Chloride Carbon Dioxide Anion Gap BUN Creatinine Est GFR ( Amer) Est GFR (Non-Af Amer) Random Glucose Calcium Total Bilirubin AST ALT Alkaline Phosphatase Troponin I Total Protein Albumin Globulin Albumin/Globulin Ratio Lipase Urine Color Urine Clarity Urine pH Ur Specific [place] Urine Protein Urine Glucose (UA) Urine Ketones Urine Blood Urine Nitrate Urine Bilirubin Urine Urobilinogen Ur Leukocyte Esterase Stool Occult Blood Alcohol, Quantitative 86 H Blood Type Antibody Screen Assessment & Plan - Assessment and Plan (Free Text) Assessment: #Chest pain #Alcoholism #Chronic NSAIDs, aspirin, Plavix use #GERD on PPI daily #CAD s/p CABG #Depression PLAN: -No active GI bleeding. Rectal negative. Occult stool negative. Hb at baseline and trending up. Vitals normal. -Recommend r/o cardiac cause of chest pain. Follow up cardiology recs. -Supportive IV fluids -Thiamine, B12 supplements -Advised patient to avoid alcohol as well as NSAIDs. -CIMA protocol -No endoscopic evaluations planned at this time Case discussed with Dr. Vines, see attestation - Date & Time Date: 10/15/18 Time: : <Avinash Vines Y - Last Filed: 10/15/18 11:14> Meds - Medications Medications: Current Medications Acetaminophen (Tylenol 325mg Tab) 650 mg PO Q6 PRN PRN Reason: Pain, moderate (4-7) Last Admin: 10/15/18 10:21 Dose: 650 mg Cyanocobalamin (Vitamin B12 1000 Mcg Tab) 1,000 mcg PO DAILY [facility] Last Admin: 10/15/18 10:56 Dose: 1,000 mcg Enoxaparin Sodium (Lovenox) 40 mg SC DAILY [facility] Last Admin: 10/15/18 09:54 Dose: 40 mg Pantoprazole Sodium (Protonix Ec Tab) 40 mg PO DAILY [facility] Last Admin: 10/15/18 10:56 Dose: 40 mg Thiamine HCl (Vitamin B1 Tab) 100 mg PO BID [facility] Last Admin: 10/15/18 10:56 Dose: 100 mg Results - Vital Signs Recent Vital Signs: Last Vital Signs Temp 97.0 F L 10/15/18 08:09 Pulse 82 10/15/18 08:09 Resp 20 10/15/18 08:09 BP 160/87 H 10/15/18 08:09 Pulse Ox 96 10/15/18 08:09 - Labs Result Diagrams: 10/15/18 08:10 10/15/18 08:10 Labs: Laboratory Results - last 24 hr 10/14/18 10/14/18 10/14/18 22:34 22:47 22:47 WBC 7.8 D RBC 3.41 L Hgb 10.4 L Hct 31.4 L MCV 91.9 MCH 30.5 MCHC 33.2 RDW 14.0 Plt Count 232 MPV 9.3 Neut % (Auto) 52.1 Lymph % (Auto) 26.6 [place] % (Auto) 10.7 H Eos % (Auto) 8.2 H Baso % (Auto) 2.4 H Neut # (Auto) 4.1 Lymph # (Auto) 2.1 [place] # (Auto) 0.8 Eos # (Auto) 0.6 Baso # (Auto) 0.2 PT 11.6 INR 1.1 APTT 30 Sodium Potassium Chloride Carbon Dioxide Anion Gap BUN Creatinine Est GFR ( Amer) Est GFR (Non-Af Amer) Random Glucose Calcium Total Bilirubin AST ALT Alkaline Phosphatase Total Creatine Kinase CK-MB (Mass) Troponin I Total Protein Albumin Globulin Albumin/Globulin Ratio Lipase Urine Color Urine Clarity Urine pH Ur Specific [place] Urine Protein Urine Glucose (UA) Urine Ketones Urine Blood Urine Nitrate Urine Bilirubin Urine Urobilinogen Ur Leukocyte Esterase Stool Occult Blood Negative Alcohol, Quantitative Blood Type Antibody Screen 10/14/18 10/14/18 10/15/18 22:47 22:47 01:05 WBC RBC Hgb Hct MCV MCH MCHC RDW Plt Count MPV Neut % (Auto) Lymph % (Auto) [place] % (Auto) Eos % (Auto) Baso % (Auto) Neut # (Auto) Lymph # (Auto) [place] # (Auto) Eos # (Auto) Baso # (Auto) PT INR APTT Sodium 135 Potassium 3.3 L Chloride 102 Carbon Dioxide 22 Anion Gap 14 BUN 8 L Creatinine 0.8 Est GFR ( Amer) > 60 Est GFR (Non-Af Amer) > 60 Random Glucose 86 Calcium 8.8 Total Bilirubin 0.2 AST 25 ALT 16 L D Alkaline Phosphatase 72 Total Creatine Kinase CK-MB (Mass) Troponin I < 0.0120 Total Protein 6.5 Albumin 3.7 Globulin 2.8 Albumin/Globulin Ratio 1.3 Lipase 119 Urine Color Straw Urine Clarity Clear Urine pH 6.0 Ur Specific [place] 1.004 Urine Protein Negative Urine Glucose (UA) Normal Urine Ketones Negative Urine Blood Negative Urine Nitrate Negative Urine Bilirubin Negative Urine Urobilinogen Normal Ur Leukocyte Esterase Neg Stool Occult Blood Alcohol, Quantitative Blood Type A POSITIVE Antibody Screen Negative 10/15/18 10/15/18 10/15/18 02:18 08:10 08:10 WBC 8.8 RBC 3.76 L Hgb 11.7 L Hct 34.7 L MCV 92.4 MCH 31.0 MCHC 33.6 RDW 14.1 Plt Count 254 MPV 9.6 Neut % (Auto) 60.5 Lymph % (Auto) 22.3 [place] % (Auto) 9.1 Eos % (Auto) 6.7 H Baso % (Auto) 1.4 Neut # (Auto) 5.3 Lymph # (Auto) 2.0 [place] # (Auto) 0.8 Eos # (Auto) 0.6 Baso # (Auto) 0.1 PT INR APTT Sodium 138 Potassium 4.0 Chloride 103 Carbon Dioxide 23 Anion Gap 16 BUN 7 L Creatinine 0.8 Est GFR ( Amer) > 60 Est GFR (Non-Af Amer) > 60 Random Glucose 111 H D Calcium 9.0 Total Bilirubin 0.4 AST 40 ALT 22 Alkaline Phosphatase 95 Total Creatine Kinase 105 CK-MB (Mass) 1.12 Troponin I < 0.0120 Total Protein 7.2 Albumin 4.1 Globulin 3.1 Albumin/Globulin Ratio 1.3 Lipase Urine Color Urine Clarity Urine pH Ur Specific [place] Urine Protein Urine Glucose (UA) Urine Ketones Urine Blood Urine Nitrate Urine Bilirubin Urine Urobilinogen Ur Leukocyte Esterase Stool Occult Blood Alcohol, Quantitative 86 H Blood Type Antibody Screen Attending/Attestation - Attestation I have personally seen and examined this patient.: Yes I have fully participated in the care of the patient.: Yes I have reviewed all pertinent clinical information: Yes Notes (Text): 10/15/18 11:06 I have seen and examined patient with GI fellow. Agree with above documentation with the following additions. In brief, this is a 63 year old male with history of CAD/CABG, ETOH abuse who presents to hospital with complaint of progressive chest discomfort. He endorses a pressure-like sensation in left upper chest region associated with dyspnea for the past few days which has gotten worse. He admits to chronic ETOH abuse and consumes nearly 7 beers daily. He also notes dark colored stool mixed with fresh blood for the past 24 hours which has resolved since arrival to hospital. He denies abdominal pain, nausea, vomiting, fever/chills, weight loss. He uses PPI therapy daily for relief of heartburn, no prior EGD. He had a colonoscopy approximately 7 years ago which showed a "few" polyps as per patient. CAD/CABG Chest pain, atypical ETOH abuse Anemia, likely secondary to chronic disease - Cardiac diet as tolerated - Continue with PPI therapy - H/H stable, continue to monitor. No clinical features of bleeding noted, rectal exam shows soft brown stool in vault, stool occult blood negative - Follow up cardiology recommendations - Patient would ultimately benefit from endoscopic evaluation which should be scheduled electively as outpatient when anti-platelet therapy can be safely stopped to prevent potential bleeding related complications. No further planned GI interventions at this time, will sign off case. Please reconsult as n jose, thank you.
[2018-10-15 08:21] LABS: BASO # 0.1 K/uL (0.0-0.2); BASO % 1.4 % (0.0-2.0); EOS # 0.6 K/uL (0.0-0.7); EOS % 6.7 % (0.0-4.0); HEMOGLOBIN 11.7 g/dL (12.0-18.0); LYMPH % 22.3 % (20.0-40.0); MEAN CELL VOLUME 92.4 fL (80.0-94.0); MEAN CORPUSCULAR HGB CONC 33.6 g/dL (33.0-37.0); MEAN PLATELET VOLUME 9.6 fL (7.2-11.7); MONO # 0.8 K/uL (0.0-0.8); MONO % 9.1 % (0.0-10.0); NEUT # 5.3 K/uL (1.8-7.0); NEUT % 60.5 % (50.0-75.0); RBC 3.76 Mil/uL (4.40-5.90); RED CELL DISTRIBUTION WIDTH 14.1 % (11.5-14.5); WHITE BLOOD COUNT 8.8 K/uL (4.8-10.8)
[2018-10-15 09:04] LABS: ALB/GLOB RATIO 1.3 (1.0-2.1); ALBUMIN 4.1 g/dL (3.5-5.0); ALT/SGPT 22 U/L (21-72); AST/SGOT 40 U/L (17-59); BLOOD UREA NITROGEN 7 mg/dL (9-20); GFR NON-AFRICAN AMERICAN > 60
--- NOTE | 2018-10-15 09:18 | RAD ---
Date of service: 10/15/2018 HISTORY: cp COMPARISON: Chest radiographs 11/03/2016. TECHNIQUE: 1 view obtained. FINDINGS: LUNGS: No active pulmonary disease. PLEURA: No significant pleural effusion identified, no pneumothorax apparent. CARDIOVASCULAR: Calcific atherosclerotic changes are seen related to the thoracic aorta. Post CABG changes reiterated including median sternotomy. Normal cardiac size. No pulmonary vascular congestion. OSSEOUS STRUCTURES: Multiple old healed right rib fractures reiterated. VISUALIZED UPPER ABDOMEN: Normal. OTHER FINDINGS: None. IMPRESSION: No interval acute cardiopulmonary disease appreciated.
[2018-10-15 09:35] LABS: CK-MB 1.12 ng/mL (0.0-3.38)
[2018-10-15] MEDS ORDERED: Enoxaparin 40 mg Syringe SC SCH (10:00)
[2018-10-15] MEDS: Pantoprazole 40 mg EC Tab PO SCH (10:56)
[2018-10-15] MEDS ORDERED: Albuterol HFA 90 mcg/actuation (8 g) IH PRN (14:50)
--- NOTE | 2018-10-15 14:55 | CP.PCM.PN ---
Subjective - Date & Time of Evaluation Date of Evaluation: 10/15/18 Time of Evaluation: 14:47 - Subjective Subjective: PGY3 progress note for Dr. Diomedes Gooden 63 year old male with past medical history or CAD s/p CABG, HTN, ETOH abuse is admitted to hospital for CP r/o ACS. Patient states for past 2-3 days, he has developed pressure like left sided chest pain present intermittently. Pain is not associated with activity. patient denies having any associated symptoms with the pain such as diaphoresis, weakness, shortness of breath, coughing, F/C. Patient also states he has developed diarrhea for past 2-3 days with dark colored stools. Patient was admitted to [facility] on 08/2018 for left knee infection. He was treated with IV antibiotics for 6 weeks. Currently denies having any CP, SOB, abd pain, N/v/D/C, F/C. Patient resting comfortably. Objective - Vital Signs/Intake and Output Vital Signs (last 24 hours): Temp Pulse Resp BP Pulse Ox 97.0 F L 82 20 160/87 H 96 10/15/18 08:09 10/15/18 08:09 10/15/18 08:09 10/15/18 08:09 10/15/18 08:09 Intake and Output: 10/15/18 10/15/18 06:59 18:59 Intake Total 300 Balance 300 - Medications Medications: Current Medications Acetaminophen (Tylenol 325mg Tab) 650 mg PO Q6 PRN PRN Reason: Pain, moderate (4-7) Last Admin: 10/15/18 10:21 Dose: 650 mg Cyanocobalamin (Vitamin B12 1000 Mcg Tab) 1,000 mcg PO DAILY [facility] Last Admin: 10/15/18 10:56 Dose: 1,000 mcg Enoxaparin Sodium (Lovenox) 40 mg SC DAILY [facility] Last Admin: 10/15/18 09:54 Dose: 40 mg Pantoprazole Sodium (Protonix Ec Tab) 40 mg PO DAILY [facility] Last Admin: 10/15/18 10:56 Dose: 40 mg Thiamine HCl (Vitamin B1 Tab) 100 mg PO BID [facility] Last Admin: 10/15/18 10:56 Dose: 100 mg - Labs Labs: 10/15/18 08:10 10/15/18 08:10 PT 11.6 SECONDS (9.7-12.2) 10/14/18 22:47 INR 1.1 10/14/18 22:47 APTT 30 SECONDS (21-34) 10/14/18 22:47 - Constitutional Appears: Non-toxic, No Acute Distress - Head Exam Head Exam: ATRAUMATIC, NORMOCEPHALIC - ENT Exam ENT Exam: Mucous Membranes Moist - Respiratory Exam Respiratory Exam: Clear to Ausculation Bilateral. absent: Rales, Rhonchi, Wheezes - Cardiovascular Exam Cardiovascular Exam: REGULAR RHYTHM, +S1, +S2. absent: Gallop, Rubs, Murmur - GI/Abdominal Exam GI & Abdominal Exam: Soft, Normal Bowel Sounds. absent: Distended, Firm, Guardi ng, Rigid, Tenderness - Neurological Exam Neurological Exam: Alert, Awake, Oriented x3 - Psychiatric Exam Psychiatric exam: Normal Affect, Normal Mood - Skin Skin Exam: Dry, Intact, Normal Color, Warm Assessment and Plan - Assessment and Plan (Free Text) Assessment: 63 year old male admitted for CP R/O ACS, HTN and possible GI bleed CP r/O ACS - pt has hx of CAD s/p CABG - Will continue home medication Aspirin, Plavix as patient cleared by GI - Cardio, Dr. Feliz is consulted - troponins x 2 negative, CXR normal, EKG showed NSR - Will check Hgba1c and lipid panel - continue Lipitor GERD - GI, Dr. Vines consulted - Likely no GI bleed at this time as stool occult negative. No plan for EGD at this time ETOH abuse - Patient drink about 6 beers at night. Denies having history of withdrawal seizures - CIWA protocol - Ativan 1 mg prn - Continue MV, thiamine, folic acid Diarrhea - Due to recent php developer abx use, will check c. diff in stool, stool culture, stool leukocytes, stool electrolytes and giardia HTN - Continue home meds coreg 3.125mg po BID, amlodipine, losartan BPH - Continue Fluoxetine Prophylaxis - Protonic - Lovenox - SCD Case discussed with attending, Dr. Gooden
--- NOTE | 2018-10-15 17:03 | CARD ---
APPROVED REPORT Date of service: 10/14/2018 EKG Measurement Heart [id number] <Conclusion> Normal sinus rhythm Normal ECG
[2018-10-15 18:01] LABS: CK-MB 0.79 ng/mL (0.0-3.38)
--- NOTE | 2018-10-15 19:48 | CP.PCM.HP ---
Past Patient History - Infectious Disease Hx of Infectious Diseases: None - Tetanus Immunizations Tetanus Immunization: Unknown - Past Medical History & Family History Past Medical History?: Yes - Past Social History Smoking Status: Former Smoker - CARDIAC Hx Congestive Heart Failure: (CABG) Hx Hypertension: Yes Hx Pacemaker: No - PULMONARY Hx Asthma: Yes Hx Bronchitis: Yes Hx Chronic Obstructive Pulmonary Disease (COPD): Yes Hx Emphysema: Yes - NEUROLOGICAL Hx Neurological Disorder: No - HEENT Hx HEENT Problems: No - RENAL Hx Chronic Kidney Disease: No - ENDOCRINE/METABOLIC Hx Endocrine Disorders: No - HEMATOLOGICAL/ONCOLOGICAL Hx Blood Disorders: No Hx Cancer: No - INTEGUMENTARY Hx Dermatological Problems: No - MUSCULOSKELETAL/RHEUMATOLOGICAL Hx Arthritis: Yes - GASTROINTESTINAL Hx Gastrointestinal Disorders: No - GENITOURINARY/GYNECOLOGICAL Hx Genitourinary Disorders: No - PSYCHIATRIC Hx Depression: Yes Hx Substance Use: No - SURGICAL HISTORY Hx Surgeries: Yes Hx Mastectomy: No Other/Comment: BYPASS SURGURY - ANESTHESIA Hx Anesthesia: Yes Hx Anesthesia Reactions: No Meds Allergies/Adverse Reactions: Allergies Allergy/AdvReac Type Severity Reaction Status Date / Time No Known Allergies Allergy Verified 10/14/18 20:42 Physical Exam - Constitutional Appears: Well - Head Exam Head Exam: ATRAUMATIC, NORMAL INSPECTION, NORMOCEPHALIC - Eye Exam Eye Exam: EOMI, Normal appearance, PERRL Pupil Exam: NORMAL ACCOMODATION, PERRL - ENT Exam ENT Exam: Mucous Membranes Moist, Normal Exam - Neck Exam Neck exam: Positive for: Normal Inspection - Respiratory Exam Respiratory Exam: Decreased Breath Sounds - Cardiovascular Exam Cardiovascular Exam: REGULAR RHYTHM, +S1, +S2 - GI/Abdominal Exam GI & Abdominal Exam: Diminished Bowel Sounds, Soft - Rectal Exam Rectal Exam: Deferred - Neurological Exam Neurological exam: Oriented x3 Results - Vital Signs Recent Vital Signs: Last Vital Signs Temp 97.8 F 10/15/18 15:00 Pulse 81 10/15/18 15:00 Resp 20 10/15/18 15:00 BP 149/87 10/15/18 17:47 Pulse Ox 96 10/15/18 15:00 - Labs Result Diagrams: 10/15/18 08:10 10/15/18 08:10 Labs: Laboratory Results - last 24 hr 10/14/18 10/14/18 10/14/18 22:34 22:47 22:47 WBC 7.8 D RBC 3.41 L Hgb 10.4 L Hct 31.4 L MCV 91.9 MCH 30.5 MCHC 33.2 RDW 14.0 Plt Count 232 MPV 9.3 Neut % (Auto) 52.1 Lymph % (Auto) 26.6 [place] % (Auto) 10.7 H Eos % (Auto) 8.2 H Baso % (Auto) 2.4 H Neut # (Auto) 4.1 Lymph # (Auto) 2.1 [place] # (Auto) 0.8 Eos # (Auto) 0.6 Baso # (Auto) 0.2 PT 11.6 INR 1.1 APTT 30 Sodium Potassium Chloride Carbon Dioxide Anion Gap BUN Creatinine Est GFR ( Amer) Est GFR (Non-Af Amer) Random Glucose Calcium Total Bilirubin AST ALT Alkaline Phosphatase Total Creatine Kinase CK-MB (Mass) Troponin I Total Protein Albumin Globulin Albumin/Globulin Ratio Lipase Urine Color Urine Clarity Urine pH Ur Specific [place] Urine Protein Urine Glucose (UA) Urine Ketones Urine Blood Urine Nitrate Urine Bilirubin Urine Urobilinogen Ur Leukocyte Esterase Stool Occult Blood Negative Alcohol, Quantitative Blood Type Antibody Screen 10/14/18 10/14/18 10/15/18 22:47 22:47 01:05 WBC RBC Hgb Hct MCV MCH MCHC RDW Plt Count MPV Neut % (Auto) Lymph % (Auto) [place] % (Auto) Eos % (Auto) Baso % (Auto) Neut # (Auto) Lymph # (Auto) [place] # (Auto) Eos # (Auto) Baso # (Auto) PT INR APTT Sodium 135 Potassium 3.3 L Chloride 102 Carbon Dioxide 22 Anion Gap 14 BUN 8 L Creatinine 0.8 Est GFR ( Amer) > 60 Est GFR (Non-Af Amer) > 60 Random Glucose 86 Calcium 8.8 Total Bilirubin 0.2 AST 25 ALT 16 L D Alkaline Phosphatase 72 Total Creatine Kinase CK-MB (Mass) Troponin I < 0.0120 Total Protein 6.5 Albumin 3.7 Globulin 2.8 Albumin/Globulin Ratio 1.3 Lipase 119 Urine Color Straw Urine Clarity Clear Urine pH 6.0 Ur Specific [place] 1.004 Urine Protein Negative Urine Glucose (UA) Normal Urine Ketones Negative Urine Blood Negative Urine Nitrate Negative Urine Bilirubin Negative Urine Urobilinogen Normal Ur Leukocyte Esterase Neg Stool Occult Blood Alcohol, Quantitative Blood Type A POSITIVE Antibody Screen Negative 10/15/18 10/15/18 10/15/18 02:18 08:10 08:10 WBC 8.8 RBC 3.76 L Hgb 11.7 L Hct 34.7 L MCV 92.4 MCH 31.0 MCHC 33.6 RDW 14.1 Plt Count 254 MPV 9.6 Neut % (Auto) 60.5 Lymph % (Auto) 22.3 [place] % (Auto) 9.1 Eos % (Auto) 6.7 H Baso % (Auto) 1.4 Neut # (Auto) 5.3 Lymph # (Auto) 2.0 [place] # (Auto) 0.8 Eos # (Auto) 0.6 Baso # (Auto) 0.1 PT INR APTT Sodium 138 Potassium 4.0 Chloride 103 Carbon Dioxide 23 Anion Gap 16 BUN 7 L Creatinine 0.8 Est GFR ( Amer) > 60 Est GFR (Non-Af Amer) > 60 Random Glucose 111 H D Calcium 9.0 Total Bilirubin 0.4 AST 40 ALT 22 Alkaline Phosphatase 95 Total Creatine Kinase 105 CK-MB (Mass) 1.12 Troponin I < 0.0120 Total Protein 7.2 Albumin 4.1 Globulin 3.1 Albumin/Globulin Ratio 1.3 Lipase Urine Color Urine Clarity Urine pH Ur Specific [place] Urine Protein Urine Glucose (UA) Urine Ketones Urine Blood Urine Nitrate Urine Bilirubin Urine Urobilinogen Ur Leukocyte Esterase Stool Occult Blood Alcohol, Quantitative 86 H Blood Type Antibody Screen 10/15/18 17:24 WBC RBC Hgb Hct MCV MCH MCHC RDW Plt Count MPV Neut % (Auto) Lymph % (Auto) [place] % (Auto) Eos % (Auto) Baso % (Auto) Neut # (Auto) Lymph # (Auto) [place] # (Auto) Eos # (Auto) Baso # (Auto) PT INR APTT Sodium Potassium Chloride Carbon Dioxide Anion Gap BUN Creatinine Est GFR ( Amer) Est GFR (Non-Af Amer) Random Glucose Calcium Total Bilirubin AST ALT Alkaline Phosphatase Total Creatine Kinase 87 CK-MB (Mass) 0.79 Troponin I < 0.0120 Total Protein Albumin Globulin Albumin/Globulin Ratio Lipase Urine Color Urine Clarity Urine pH Ur Specific [place] Urine Protein Urine Glucose (UA) Urine Ketones Urine Blood Urine Nitrate Urine Bilirubin Urine Urobilinogen Ur Leukocyte Esterase Stool Occult Blood Alcohol, Quantitative Blood Type Antibody Screen
--- NOTE | 2018-10-15 21:08 | CP.PCM.CON ---
History of Present Illness - History of Present Illness History of Present Illness: Consultation for evaluation of chest pain and SOB with hx of CAD/CABG Mr. Thompson is a 63-year-old male with past medical history significant for coronary artery disease status post CABG and history of heavy alcohol abuse who presented to the emergency room with complaints of chest pain and shortness of breath. [facility]als and septic osteoarthritis and was subsequently discharged home on 4 weeks of IV antibiotics. Patient noticed that he was having a left-sided sharp stabbing pain accompanied with a aching sensation with shortness of breath and which got him concerned and we came to the emergency room he also noticed to have some black tarry stools accompanied with diarrhea for the last 2 days and lightheadedness. Patient is to be maintained on dual antiplatelet therapy also taking PPIs. Past medical history significant for hypertension depression gastroesophageal reflux disease coronary artery disease and alcoholism. Past surgical history significant for colonoscopy and CABG. Family history positive family history of premature CAD hypertension diabetes mellitus social history smoking 7 years ago heavy alcohol drinker consumes 7-8 beers a day. baseline activity is limited secondary to osteoarthrits of the knees. Review of Systems - Review of Systems Systems not reviewed;Unavailable: Acuity of Condition - Constitutional Constitutional: As Per HPI - EENT Eyes: As Per HPI Ears: As Per HPI Nose/Mouth/Throat: As Per HPI - Cardiovascular Cardiovascular: As Per HPI - Respiratory Respiratory: As Per HPI - Gastrointestinal Gastrointestinal: As Per HPI - Genitourinary Genitourinary: As Per HPI - Reproductive: Male Reproductive:Male: As Per HPI - Musculoskeletal Musculoskeletal: As Per HPI - Integumentary Integumentary: As Per HPI - Neurological Neurological: As Per HPI - Psychiatric Psychiatric: As Per HPI - Endocrine Endocrine: As Per HPI - Hematologic/Lymphatic Hematologic: As Per HPI Past Patient History - Infectious Disease Hx of Infectious Diseases: None - Tetanus Immunizations Tetanus Immunization: Unknown - Past Medical History & Family History Past Medical History?: Yes - Past Social History Smoking Status: Former Smoker - CARDIAC Hx Congestive Heart Failure: (CABG) Hx Hypertension: Yes Hx Pacemaker: No - PULMONARY Hx Asthma: Yes Hx Bronchitis: Yes Hx Chronic Obstructive Pulmonary Disease (COPD): Yes Hx Emphysema: Yes - NEUROLOGICAL Hx Neurological Disorder: No - HEENT Hx HEENT Problems: No - RENAL Hx Chronic Kidney Disease: No - ENDOCRINE/METABOLIC Hx Endocrine Disorders: No - HEMATOLOGICAL/ONCOLOGICAL Hx Blood Disorders: No Hx Cancer: No - INTEGUMENTARY Hx Dermatological Problems: No - MUSCULOSKELETAL/RHEUMATOLOGICAL Hx Arthritis: Yes - GASTROINTESTINAL Hx Gastrointestinal Disorders: No - GENITOURINARY/GYNECOLOGICAL Hx Genitourinary Disorders: No - PSYCHIATRIC Hx Depression: Yes Hx Substance Use: No - SURGICAL HISTORY Hx Surgeries: Yes Hx Mastectomy: No Other/Comment: [facility] - ANESTHESIA Hx Anesthesia: Yes Hx Anesthesia Reactions: No Meds Allergies/Adverse Reactions: Allergies Allergy/AdvReac Type Severity Reaction Status Date / Time No Known Allergies Allergy Verified 10/14/18 20:42 - Medications Medications: Current Medications Acetaminophen (Tylenol 325mg Tab) 650 mg PO Q6 PRN PRN Reason: Pain, moderate (4-7) Last Admin: 10/15/18 10:21 Dose: 650 mg Albuterol (Ventolin Hfa 90 Mcg/Actuation (8 G)) 2 puff IH Q4 PRN PRN Reason: Shortness of Breath Aspirin (Ecotrin) 81 mg PO DAILY [facility] Carvedilol (Coreg) 6.25 mg PO BID [facility] Last Admin: 10/15/18 17:47 Dose: 6.25 mg Clopidogrel Bisulfate (Plavix) 75 mg PO DAILY [facility] Last Admin: 10/15/18 17:47 Dose: 75 mg Enoxaparin Sodium (Lovenox) 40 mg SC DAILY [facility] Last Admin: 10/15/18 09:54 Dose: 40 mg Ergocalciferol (Drisdol 50,000 Intl Units Cap) 1 cap PO QWK [facility] Fluoxetine HCl (Prozac) 20 mg PO DAILY [facility] Folic Acid (Folic Acid) 1 mg PO DAILY [facility] Last Admin: 10/15/18 17:47 Dose: 1 mg Furosemide (Lasix) 40 mg PO DAILY [facility] Last Admin: 10/15/18 17:47 Dose: 40 mg Lorazepam (Ativan) 1 mg IVP Q6H PRN PRN Reason: Agitation Multivitamins/Minerals (Therapeutic-M Tab) 1 tab PO 0800 [facility] Pantoprazole Sodium (Protonix Ec Tab) 40 mg PO DAILY [facility] Last Admin: 10/15/18 10:56 Dose: 40 mg Rosuvastatin Calcium (Crestor) 40 mg PO HS [facility] Thiamine HCl (Vitamin B1 Tab) 100 mg PO BID [facility] Last Admin: 10/15/18 17:48 Dose: Not Given Thiamine HCl (Vitamin B1 Tab) 100 mg PO DAILY [facility] Last Admin: 10/15/18 16:00 Dose: Not Given Physical Exam - Constitutional Appears: Well - Head Exam Head Exam: ATRAUMATIC, NORMAL INSPECTION, NORMOCEPHALIC - Eye Exam Eye Exam: EOMI, Normal appearance, PERRL Pupil Exam: NORMAL ACCOMODATION, PERRL - ENT Exam ENT Exam: Mucous Membranes Moist, Normal Exam - Neck Exam Neck exam: Positive for: Normal Inspection - Respiratory Exam Respiratory Exam: Clear to Auscultation Bilateral, NORMAL BREATHING PATTERN - Cardiovascular Exam Cardiovascular Exam: REGULAR RHYTHM, RRR, +S1, +S2, Systolic Murmur - GI/Abdominal Exam GI & Abdominal Exam: Normal Bowel Sounds, Soft. absent: Tenderness - Extremities Exam Extremities exam: Positive for: normal inspection - Back Exam Back exam: NORMAL INSPECTION - Neurological Exam Neurological exam: Alert, CN II-XII Intact, Normal Gait, Oriented x3, Reflexes Normal - Psychiatric Exam Psychiatric exam: Normal Affect, Normal Mood - Skin Skin Exam: Dry, Intact, Normal Color, Warm Results - Vital Signs Recent Vital Signs: Last Vital Signs Temp 97.8 F 10/15/18 15:00 Pulse 81 10/15/18 15:00 Resp 20 10/15/18 15:00 BP 149/87 10/15/18 17:47 Pulse Ox 96 10/15/18 15:00 - Labs Result Diagrams: 10/15/18 08:10 10/15/18 08:10 Labs: Laboratory Results - last 24 hr 10/14/18 10/14/18 10/14/18 22:34 22:47 22:47 WBC 7.8 D RBC 3.41 L Hgb 10.4 L Hct 31.4 L MCV 91.9 MCH 30.5 MCHC 33.2 RDW 14.0 Plt Count 232 MPV 9.3 Neut % (Auto) 52.1 Lymph % (Auto) 26.6 Woodruff % (Auto) 10.7 H Eos % (Auto) 8.2 H Baso % (Auto) 2.4 H Neut # (Auto) 4.1 Lymph # (Auto) 2.1 Woodruff # (Auto) 0.8 Eos # (Auto) 0.6 Baso # (Auto) 0.2 PT 11.6 INR 1.1 APTT 30 Sodium Potassium Chloride Carbon Dioxide Anion Gap BUN Creatinine Est GFR ( Amer) Est GFR (Non-Af Amer) Random Glucose Calcium Total Bilirubin AST ALT Alkaline Phosphatase Total Creatine Kinase CK-MB (Mass) Troponin I Total Protein Albumin Globulin Albumin/Globulin Ratio Lipase Urine Color Urine Clarity Urine pH Ur Specific [place] Urine Protein Urine Glucose (UA) Urine Ketones Urine Blood Urine Nitrate Urine Bilirubin Urine Urobilinogen Ur Leukocyte Esterase Stool Occult Blood Negative Alcohol, Quantitative Blood Type Antibody Screen 10/14/18 10/14/18 10/15/18 22:47 22:47 01:05 WBC RBC Hgb Hct MCV MCH MCHC RDW Plt Count MPV Neut % (Auto) Lymph % (Auto) Woodruff % (Auto) Eos % (Auto) Baso % (Auto) Neut # (Auto) Lymph # (Auto) Woodruff # (Auto) Eos # (Auto) Baso # (Auto) PT INR APTT Sodium 135 Potassium 3.3 L Chloride 102 Carbon Dioxide 22 Anion Gap 14 BUN 8 L Creatinine 0.8 Est GFR ( Amer) > 60 Est GFR (Non-Af Amer) > 60 Random Glucose 86 Calcium 8.8 Total Bilirubin 0.2 AST 25 ALT 16 L D Alkaline Phosphatase 72 Total Creatine Kinase CK-MB (Mass) Troponin I < 0.0120 Total Protein 6.5 Albumin 3.7 Globulin 2.8 Albumin/Globulin Ratio 1.3 Lipase 119 Urine Color Straw Urine Clarity Clear Urine pH 6.0 Ur Specific [place] 1.004 Urine Protein Negative Urine Glucose (UA) Normal Urine Ketones Negative Urine Blood Negative Urine Nitrate Negative Urine Bilirubin Negative Urine Urobilinogen Normal Ur Leukocyte Esterase Neg Stool Occult Blood Alcohol, Quantitative Blood Type A POSITIVE Antibody Screen Negative 10/15/18 10/15/18 10/15/18 02:18 08:10 08:10 WBC 8.8 RBC 3.76 L Hgb 11.7 L Hct 34.7 L MCV 92.4 MCH 31.0 MCHC 33.6 RDW 14.1 Plt Count 254 MPV 9.6 Neut % (Auto) 60.5 Lymph % (Auto) 22.3 Woodruff % (Auto) 9.1 Eos % (Auto) 6.7 H Baso % (Auto) 1.4 Neut # (Auto) 5.3 Lymph # (Auto) 2.0 Woodruff # (Auto) 0.8 Eos # (Auto) 0.6 Baso # (Auto) 0.1 PT INR APTT Sodium 138 Potassium 4.0 Chloride 103 Carbon Dioxide 23 Anion Gap 16 BUN 7 L Creatinine 0.8 Est GFR ( Amer) > 60 Est GFR (Non-Af Amer) > 60 Random Glucose 111 H D Calcium 9.0 Total Bilirubin 0.4 AST 40 ALT 22 Alkaline Phosphatase 95 Total Creatine Kinase 105 CK-MB (Mass) 1.12 Troponin I < 0.0120 Total Protein 7.2 Albumin 4.1 Globulin 3.1 Albumin/Globulin Ratio 1.3 Lipase Urine Color Urine Clarity Urine pH Ur Specific [place] Urine Protein Urine Glucose (UA) Urine Ketones Urine Blood Urine Nitrate Urine Bilirubin Urine Urobilinogen Ur Leukocyte Esterase Stool Occult Blood Alcohol, Quantitative 86 H Blood Type Antibody Screen 10/15/18 17:24 WBC RBC Hgb Hct MCV MCH MCHC RDW Plt Count MPV Neut % (Auto) Lymph % (Auto) Woodruff % (Auto) Eos % (Auto) Baso % (Auto) Neut # (Auto) Lymph # (Auto) [place]ruff # (Auto) Eos # (Auto) Baso # (Auto) PT INR APTT Sodium Potassium Chloride Carbon Dioxide Anion Gap BUN Creatinine Est GFR ( Amer) Est GFR (Non-Af Amer) Random Glucose Calcium Total Bilirubin AST ALT Alkaline Phosphatase Total Creatine Kinase 87 CK-MB (Mass) 0.79 Troponin I < 0.0120 Total Protein Albumin Globulin Albumin/Globulin Ratio Lipase Urine Color Urine Clarity Urine pH Ur Specific [place] Urine Protein Urine Glucose (UA) Urine Ketones Urine Blood Urine Nitrate Urine Bilirubin Urine Urobilinogen Ur Leukocyte Esterase Stool Occult Blood Alcohol, Quantitative Blood Type Antibody Screen Assessment & Plan (1) Chest pain Assessment and Plan: npo p mn stress test in am Status: Acute (2) Hx of CABG Assessment and Plan: cont dapt cont coreg and statins echo Status: Acute (3) HTN (hypertension) Status: Acute (4) Depression Status: Acute (5) COPD (chronic obstructive pulmonary disease) Status: Chronic (6) CAD (coronary artery disease) Status: Acute
[2018-10-16 00:40] LABS: CK-MB 0.59 ng/mL (0.0-3.38)
[2018-10-16 07:22] LABS: BASO # 0.1 K/uL (0.0-0.2); BASO % 1.6 % (0.0-2.0); EOS # 0.5 K/uL (0.0-0.7); EOS % 8.6 % (0.0-4.0); HEMOGLOBIN 11.4 g/dL (12.0-18.0); LYMPH # 1.7 K/uL (1.0-4.3); MEAN CELL VOLUME 92.4 fL (80.0-94.0); MEAN CORPUSCULAR HEMOGLOBIN 31.3 pg (27.0-31.0); MEAN CORPUSCULAR HGB CONC 33.8 g/dL (33.0-37.0); MEAN PLATELET VOLUME 9.7 fL (7.2-11.7); MONO # 0.9 K/uL (0.0-0.8); MONO % 13.9 % (0.0-10.0); NEUT # 3.1 K/uL (1.8-7.0); NEUT % 48.9 % (50.0-75.0); NRBC % 0.1 % (0.0-2.0); RBC 3.65 Mil/uL (4.40-5.90); WHITE BLOOD COUNT 6.3 K/uL (4.8-10.8)
[2018-10-16 07:31] LABS: ALB/GLOB RATIO 1.4 (1.0-2.1); ALT/SGPT 13 U/L (21-72); AST/SGOT 35 U/L (17-59); BLOOD UREA NITROGEN 9 mg/dL (9-20); CALCIUM 8.5 mg/dl (8.6-10.4); GFR NON-AFRICAN AMERICAN > 60
[2018-10-16] MEDS: Multivitamin With Minerals Tab PO SCH (07:44)
--- NOTE | 2018-10-16 08:56 | CP.PCM.PN ---
Subjective - Date & Time of Evaluation Date of Evaluation: 10/16/18 Time of Evaluation: 08:54 - Subjective Subjective: no CP or SOB TnI x 3 Objective - Vital Signs/Intake and Output Vital Signs (last 24 hours): Temp Pulse Resp BP Pulse Ox 97.5 F L 77 20 150/85 97 10/16/18 07:20 10/16/18 07:56 10/16/18 07:20 10/16/18 07:20 10/16/18 07:20 Intake and Output: 10/16/18 10/16/18 06:59 18:59 Intake Total 500 Output Total 1700 Balance -1200 - Medications Medications: Current Medications Acetaminophen (Tylenol 325mg Tab) 650 mg PO Q6 PRN PRN Reason: Pain, moderate (4-7) Last Admin: 10/15/18 21:53 Dose: 650 mg Albuterol (Ventolin Hfa 90 Mcg/Actuation (8 G)) 2 puff IH Q4 PRN PRN Reason: Shortness of Breath Aspirin (Ecotrin) 81 mg PO DAILY [facility] Carvedilol (Coreg) 6.25 mg PO BID [facility] Last Admin: 10/15/18 17:47 Dose: 6.25 mg Clopidogrel Bisulfate (Plavix) 75 mg PO DAILY [facility] Last Admin: 10/15/18 17:47 Dose: 75 mg Enoxaparin Sodium (Lovenox) 40 mg SC DAILY [facility] Last Admin: 10/15/18 09:54 Dose: 40 mg Ergocalciferol (Drisdol 50,000 Intl Units Cap) 1 cap PO QWK [facility] Fluoxetine HCl (Prozac) 20 mg PO DAILY [facility] Folic Acid (Folic Acid) 1 mg PO DAILY [facility] Last Admin: 10/15/18 17:47 Dose: 1 mg Furosemide (Lasix) 40 mg PO DAILY [facility] Last Admin: 10/15/18 17:47 Dose: 40 mg Lorazepam (Ativan) 1 mg IVP Q6H PRN PRN Reason: Agitation Multivitamins/Minerals (Therapeutic-M Tab) 1 tab PO 0800 [facility] Last Admin: 10/16/18 07:44 Dose: 1 tab Pantoprazole Sodium (Protonix Ec Tab) 40 mg PO DAILY [facility] Last Admin: 10/15/18 10:56 Dose: 40 mg Potassium Chloride (K-Dur 20 Meq Er Tab) 40 meq PO ONCE ONE Stop: 10/16/18 10:01 Rosuvastatin Calcium (Crestor) 40 mg PO HS [facility] Last Admin: 10/15/18 21:53 Dose: 40 mg Thiamine HCl (Vitamin B1 Tab) 100 mg PO BID [facility] Last Admin: 10/15/18 17:48 Dose: Not Given Thiamine HCl (Vitamin B1 Tab) 100 mg PO DAILY [facility] Last Admin: 10/15/18 16:00 Dose: Not Given - Labs Labs: 10/16/18 07:03 10/16/18 07:03 PT 11.6 SECONDS (9.7-12.2) 10/14/18 22:47 INR 1.1 10/14/18 22:47 APTT 30 SECONDS (21-34) 10/14/18 22:47 - Constitutional Appears: Well - Head Exam Head Exam: ATRAUMATIC, NORMAL INSPECTION, NORMOCEPHALIC - Eye Exam Eye Exam: EOMI, Normal appearance, PERRL Pupil Exam: NORMAL ACCOMODATION, PERRL - ENT Exam ENT Exam: Mucous Membranes Moist, Normal Exam - Neck Exam Neck Exam: Full ROM, Normal Inspection. absent: Lymphadenopathy - Respiratory Exam Respiratory Exam: Clear to Ausculation Bilateral, NORMAL BREATHING PATTERN - Cardiovascular Exam Cardiovascular Exam: REGULAR RHYTHM, +S1, +S2. absent: Murmur - GI/Abdominal Exam GI & Abdominal Exam: Soft, Normal Bowel Sounds. absent: Tenderness - Extremities Exam Extremities Exam: Full ROM, Normal Capillary Refill, Normal Inspection. absent: Joint Swelling, Pedal Edema - Back Exam Back Exam: NORMAL INSPECTION - Neurological Exam Neurological Exam: Alert, Awake, CN II-XII Intact, Normal Gait, Oriented x3 - Psychiatric Exam Psychiatric exam: Normal Affect, Normal Mood - Skin Skin Exam: Dry, Intact, Normal Color, Warm Assessment and Plan (1) Chest pain Assessment & Plan: TnI x 3 -ve Echo pending plan for stress test Status: Acute (2) Hx of CABG Assessment & Plan: cont dapt, bb, statins add imdur Status: Acute (3) HTN (hypertension) Assessment & Plan: cont coreg add losartan 50mg po daily Status: Acute (4) Depression Status: Acute (5) COPD (chronic obstructive pulmonary disease) Status: Chronic (6) CAD (coronary artery disease) Status: Acute
[2018-10-16] MEDS ORDERED: Ergocalciferol 50,000 Intl Units Cap PO SCH (10:00)
[2018-10-16] MEDS ORDERED: Potassium Chloride 20 mEq ER Tab PO ONE (10:00)
[2018-10-16] MEDS: Pantoprazole 40 mg EC Tab PO SCH (10:06)
--- NOTE | 2018-10-16 12:22 | CARD ---
APPROVED REPORT Date of service: 10/16/2018 EXAM: Two-dimensional and M-mode echocardiogram with Doppler and color Doppler. Other Information Quality : GoodRhythm : NSR INDICATION Dyspnea CAD Chest Pain COPD Surgery/Intervention CABG: RISK FACTORS Hypertension 2D DIMENSIONS IVSd1.1 (0.7-1.1cm)LVDd4.5 (3.9-5.9cm) PWd0.9 (0.7-1.1cm)LA Geyrmq13 (18-58mL) LVDs3.2 (2.5-4.0cm)FS (%) 30.1 % LVEF (%)60.0 (>50%)LVEF (Sandra's)68.33 % M-Mode DIMENSIONS Left Atrium (MM)4.76 (2.5-4.0cm)IVSd1.16 (0.7-1.1cm) Aortic Root3.92 (2.2-3.7cm)LVDd5.62 (4.0-5.6cm) Aortic Cusp Exc.2.78 (1.5-2.0cm)PWd0.96 (0.7-1.1cm) FS (%) 39 %LVDs3.42 (2.0-3.8cm) LVEF (%)69 (>50%) Mitral Valve MV E Pbtoqmby24.3cm/sMV A Qwticncg752.6cm/sE/A ratio0.8 TDI Lateral E' Peak V12.08cm/sMedial E' Peak V8.04cm/sE/Lateral E'7.6 E/Medial E'11.4 LEFT VENTRICLE The left ventricle is normal size. There is mild concentric left ventricular hypertrophy. Left ventricle systolic function is normal. The Ejection Fraction is 65-70%. There is normal LV segmental wall motion. Transmitral Doppler flow pattern is Grade I-abnormal relaxation pattern. There is no ventricular septal defect visualized. RIGHT VENTRICLE The right ventricle is normal size. The right ventricular systolic function is normal. ATRIA The left atrium is mildly dilated. The right atrium size is normal. AORTIC VALVE The aortic valve is mildly sclerotic. The aortic valve is tri-cuspid. No aortic regurgitation is present. There is no aortic valvular stenosis. MITRAL VALVE The mitral valve is normal in structure. There is no evidence of mitral valve prolapse. There is no mitral valve regurgitation noted. TRICUSPID VALVE The tricuspid valve is normal in structure. There is trace tricuspid regurgitation. Right ventricular systolic pressure is estimated at less than 30 mmHg. There is no pulmonary hypertension. PULMONIC VALVE The pulmonary valve is normal in structure. There is trace pulmonic valvular regurgitation. GREAT VESSELS The aortic root is normal in size. The ascending aorta is normal in size. The IVC is normal in size and collapses >50% with inspiration. PERICARDIAL EFFUSION There is no pericardial effusion. <Conclusion> Left ventricle systolic function is normal. The Ejection Fraction is 65-70%. Transmitral Doppler flow pattern is Grade I-abnormal relaxation pattern.
--- NOTE | 2018-10-16 14:37 | CP.PCM.PN ---
Subjective - Date & Time of Evaluation Date of Evaluation: 10/16/18 Time of Evaluation: 14:34 - Subjective Subjective: PGY3 progress note for Dr. Gooden Pt seen and examined at bedside. No acute events overnight. Patient resting comfortably in bed. Patient states that he still has intermitten chest pain that is not associated with position, or exertion. Pain improved with pressing on the chest. Denies having any SOB, abd pain, N/V/D/c, F/C. Tolerating diet. patient still has the urge to defecate but states that only releasing gas. Objective - Vital Signs/Intake and Output Vital Signs (last 24 hours): Temp Pulse Resp BP Pulse Ox 97.5 F L 77 20 150/85 97 10/16/18 07:20 10/16/18 07:56 10/16/18 07:20 10/16/18 10:10 10/16/18 07:20 Intake and Output: 10/16/18 10/16/18 06:59 18:59 Intake Total 500 350 Output Total 1700 400 Balance -1200 -50 - Medications Medications: Current Medications Acetaminophen (Tylenol 325mg Tab) 650 mg PO Q6 PRN PRN Reason: Pain, moderate (4-7) Last Admin: 10/15/18 21:53 Dose: 650 mg Albuterol (Ventolin Hfa 90 Mcg/Actuation (8 G)) 2 puff IH Q4 PRN PRN Reason: Shortness of Breath Aspirin (Ecotrin) 81 mg PO DAILY [facility] Last Admin: 10/16/18 10:06 Dose: 81 mg Carvedilol (Coreg) 6.25 mg PO BID [facility] Last Admin: 10/16/18 10:06 Dose: 6.25 mg Clopidogrel Bisulfate (Plavix) 75 mg PO DAILY [facility] Last Admin: 10/16/18 10:05 Dose: 75 mg Enoxaparin Sodium (Lovenox) 40 mg SC DAILY [facility] Last Admin: 10/15/18 09:54 Dose: 40 mg Ergocalciferol (Drisdol 50,000 Intl Units Cap) 1 cap PO QWK [facility] Last Admin: 10/16/18 10:05 Dose: 1 cap Fluoxetine HCl (Prozac) 20 mg PO DAILY [facility] Last Admin: 10/16/18 10:05 Dose: 20 mg Folic Acid (Folic Acid) 1 mg PO DAILY [facility] Last Admin: 10/16/18 10:05 Dose: 1 mg Furosemide (Lasix) 40 mg PO DAILY [facility] Last Admin: 10/16/18 10:10 Dose: 40 mg Lorazepam (Ativan) 1 mg IVP Q6H PRN PRN Reason: Agitation Multivitamins/Minerals (Therapeutic-M Tab) 1 tab PO 0800 [facility] Last Admin: 10/16/18 07:44 Dose: 1 tab Pantoprazole Sodium (Protonix Ec Tab) 40 mg PO DAILY [facility] Last Admin: 10/16/18 10:06 Dose: 40 mg Rosuvastatin Calcium (Crestor) 40 mg PO HS [facility] Last Admin: 10/15/18 21:53 Dose: 40 mg Thiamine HCl (Vitamin B1 Tab) 100 mg PO BID [facility] Last Admin: 10/16/18 10:05 Dose: 100 mg Thiamine HCl (Vitamin B1 Tab) 100 mg PO DAILY [facility] Last Admin: 10/16/18 10:08 Dose: Not Given - Labs Labs: 10/16/18 07:03 10/16/18 07:03 PT 11.6 SECONDS (9.7-12.2) 10/14/18 22:47 INR 1.1 10/14/18 22:47 APTT 30 SECONDS (21-34) 10/14/18 22:47 - Constitutional Appears: Non-toxic, No Acute Distress - Head Exam Head Exam: ATRAUMATIC, NORMOCEPHALIC - ENT Exam ENT Exam: Mucous Membranes Moist - Respiratory Exam Respiratory Exam: Clear to Ausculation Bilateral. absent: Accessory Muscle Use, Rales, Rhonchi, Wheezes, Respiratory Distress - Cardiovascular Exam Cardiovascular Exam: REGULAR RHYTHM, +S1, +S2. absent: Gallop, Rubs, Murmur - GI/Abdominal Exam GI & Abdominal Exam: Soft, Normal Bowel Sounds. absent: Distended, Firm, Guar ding, Rigid, Tenderness - Extremities Exam Extremities Exam: absent: Pedal Edema, Tenderness - Neurological Exam Neurological Exam: Alert, Awake - Psychiatric Exam Psychiatric exam: Normal Affect, Normal Mood - Skin Skin Exam: Dry, Intact, Normal Color, Warm Assessment and Plan - Assessment and Plan (Free Text) Assessment: 63 year old male admitted for CP R/O ACS, HTN and possible GI bleed CP r/O ACS - pt has hx of CAD s/p CABG - Will continue home medication Aspirin, Plavix as patient cleared by GI - Cardio, Dr. Feliz is consulted - Echo done today showed EF of 65% with grade-1 diastolic dysfunction. Plan for nuclear stress test in am - Will check Hgba1c and lipid panel - continue statin therapy with crestor GERD - GI, Dr. Vines consulted - Likely no GI bleed at this time as stool occult negative. No plan for EGD at this time ETOH abuse - Patient drink about 6 beers at night. Denies having history of withdrawal seizures - CIWA protocol - Ativan 1 mg prn - Continue MV, thiamine, folic acid Diarrhea - Recent abx use - C diff is negative - pending stool cultures and stool electrolytes HTN - Continue home meds coreg 3.125mg po BID, amlodipine, losartan, lasixs BPH - Continue Fluoxetine Prophylaxis - Protonic - Lovenox - SCD Case discussed with attending, Dr. Gooden
--- NOTE | 2018-10-16 15:00 | CP.PCM.PN ---
Subjective - Date & Time of Evaluation Date of Evaluation: 10/16/18 Objective - Vital Signs/Intake and Output Vital Signs (last 24 hours): Temp Pulse Resp BP Pulse Ox 97.5 F L 77 20 150/85 97 10/16/18 07:20 10/16/18 07:56 10/16/18 07:20 10/16/18 10:10 10/16/18 07:20 Intake and Output: 10/16/18 10/16/18 06:59 18:59 Intake Total 500 350 Output Total 1700 400 Balance -1200 -50 - Medications Medications: Current Medications Acetaminophen (Tylenol 325mg Tab) 650 mg PO Q6 PRN PRN Reason: Pain, moderate (4-7) Last Admin: 10/15/18 21:53 Dose: 650 mg Albuterol (Ventolin Hfa 90 Mcg/Actuation (8 G)) 2 puff IH Q4 PRN PRN Reason: Shortness of Breath Aspirin (Ecotrin) 81 mg PO DAILY [facility] Last Admin: 10/16/18 10:06 Dose: 81 mg Carvedilol (Coreg) 6.25 mg PO BID [facility] Last Admin: 10/16/18 10:06 Dose: 6.25 mg Clopidogrel Bisulfate (Plavix) 75 mg PO DAILY [facility] Last Admin: 10/16/18 10:05 Dose: 75 mg Enoxaparin Sodium (Lovenox) 40 mg SC DAILY [facility] Last Admin: 10/15/18 09:54 Dose: 40 mg Ergocalciferol (Drisdol 50,000 Intl Units Cap) 1 cap PO QWK [facility] Last Admin: 10/16/18 10:05 Dose: 1 cap Fluoxetine HCl (Prozac) 20 mg PO DAILY [facility] Last Admin: 10/16/18 10:05 Dose: 20 mg Folic Acid (Folic Acid) 1 mg PO DAILY [facility] Last Admin: 10/16/18 10:05 Dose: 1 mg Furosemide (Lasix) 40 mg PO DAILY [facility] Last Admin: 10/16/18 10:10 Dose: 40 mg Lorazepam (Ativan) 1 mg IVP Q6H PRN PRN Reason: Agitation Multivitamins/Minerals (Therapeutic-M Tab) 1 tab PO 0800 [facility] Last Admin: 10/16/18 07:44 Dose: 1 tab Pantoprazole Sodium (Protonix Ec Tab) 40 mg PO DAILY [facility] Last Admin: 10/16/18 10:06 Dose: 40 mg Rosuvastatin Calcium (Crestor) 40 mg PO HS [facility] Last Admin: 10/15/18 21:53 Dose: 40 mg Thiamine HCl (Vitamin B1 Tab) 100 mg PO DAILY [facility] Last Admin: 10/16/18 10:08 Dose: Not Given - Labs Labs: 10/16/18 07:03 10/16/18 07:03 PT 11.6 SECONDS (9.7-12.2) 10/14/18 22:47 INR 1.1 10/14/18 22:47 APTT 30 SECONDS (21-34) 10/14/18 22:47 - Constitutional Appears: Well - Head Exam Head Exam: ATRAUMATIC, NORMAL INSPECTION, NORMOCEPHALIC - Eye Exam Eye Exam: EOMI, Normal appearance, PERRL Pupil Exam: NORMAL ACCOMODATION, PERRL - ENT Exam ENT Exam: Mucous Membranes Moist, Normal Exam - Neck Exam Neck Exam: Full ROM, Normal Inspection. absent: Lymphadenopathy - Respiratory Exam Respiratory Exam: Decreased Breath Sounds - Cardiovascular Exam Cardiovascular Exam: REGULAR RHYTHM, +S1, +S2 - GI/Abdominal Exam GI & Abdominal Exam: Soft, Diminished Bowel Sounds - Rectal Exam Rectal Exam: Deferred - Neurological Exam Neurological Exam: Oriented x3 Assessment and Plan - Assessment and Plan (Free Text) Plan: labs reviewed vitals reviewed medications reviewed
--- NOTE | 2018-10-16 20:04 | CP.PCM.PN ---
Subjective - Date & Time of Evaluation Date of Evaluation: 10/16/18 Time of Evaluation: 20:03 - Subjective Subjective: feeling fine echo reviewed - nl EF no VHD Objective - Vital Signs/Intake and Output Vital Signs (last 24 hours): Temp Pulse Resp BP Pulse Ox 97.9 F 86 20 119/75 95 10/16/18 15:00 10/16/18 15:00 10/16/18 15:00 10/16/18 15:00 10/16/18 19:29 Intake and Output: 10/16/18 10/17/18 18:59 06:59 Intake Total 350 Output Total 400 Balance -50 - Medications Medications: Current Medications Acetaminophen (Tylenol 325mg Tab) 650 mg PO Q6 PRN PRN Reason: Pain, moderate (4-7) Last Admin: 10/15/18 21:53 Dose: 650 mg Albuterol (Ventolin Hfa 90 Mcg/Actuation (8 G)) 2 puff IH Q4 PRN PRN Reason: Shortness of Breath Aspirin (Ecotrin) 81 mg PO DAILY [facility] Last Admin: 10/16/18 10:06 Dose: 81 mg Carvedilol (Coreg) 6.25 mg PO BID [facility] Last Admin: 10/16/18 17:19 Dose: 6.25 mg Clopidogrel Bisulfate (Plavix) 75 mg PO DAILY [facility] Last Admin: 10/16/18 10:05 Dose: 75 mg Enoxaparin Sodium (Lovenox) 40 mg SC DAILY [facility] Last Admin: 10/15/18 09:54 Dose: 40 mg Ergocalciferol (Drisdol 50,000 Intl Units Cap) 1 cap PO QWK [facility] Last Admin: 10/16/18 10:05 Dose: 1 cap Fluoxetine HCl (Prozac) 20 mg PO DAILY [facility] Last Admin: 10/16/18 10:05 Dose: 20 mg Folic Acid (Folic Acid) 1 mg PO DAILY [facility] Last Admin: 10/16/18 10:05 Dose: 1 mg Furosemide (Lasix) 40 mg PO DAILY [facility] Last Admin: 10/16/18 10:10 Dose: 40 mg Lorazepam (Ativan) 1 mg IVP Q6H PRN PRN Reason: Agitation Multivitamins/Minerals (Therapeutic-M Tab) 1 tab PO 0800 [facility] Last Admin: 10/16/18 07:44 Dose: 1 tab Pantoprazole Sodium (Protonix Ec Tab) 40 mg PO DAILY [facility] Last Admin: 10/16/18 10:06 Dose: 40 mg Rosuvastatin Calcium (Crestor) 40 mg PO HS [facility] Last Admin: 10/15/18 21:53 Dose: 40 mg Thiamine HCl (Vitamin B1 Tab) 100 mg PO DAILY [facility] Last Admin: 10/16/18 10:08 Dose: Not Given - Labs Labs: 10/16/18 07:03 10/16/18 07:03 PT 11.6 SECONDS (9.7-12.2) 10/14/18 22:47 INR 1.1 10/14/18 22:47 APTT 30 SECONDS (21-34) 10/14/18 22:47 - Constitutional Appears: Well - Head Exam Head Exam: ATRAUMATIC, NORMAL INSPECTION, NORMOCEPHALIC - Eye Exam Eye Exam: EOMI, Normal appearance, PERRL Pupil Exam: NORMAL ACCOMODATION, PERRL - ENT Exam ENT Exam: Mucous Membranes Moist, Normal Exam - Neck Exam Neck Exam: Full ROM, Normal Inspection. absent: Lymphadenopathy - Respiratory Exam Respiratory Exam: Clear to Ausculation Bilateral, NORMAL BREATHING PATTERN - Cardiovascular Exam Cardiovascular Exam: REGULAR RHYTHM, +S1, +S2. absent: Murmur - GI/Abdominal Exam GI & Abdominal Exam: Soft, Normal Bowel Sounds. absent: Tenderness - Extremities Exam Extremities Exam: Full ROM, Normal Capillary Refill, Normal Inspection. absent: Joint Swelling, Pedal Edema - Back Exam Back Exam: NORMAL INSPECTION - Neurological Exam Neurological Exam: Alert, Awake, CN II-XII Intact, Normal Gait, Oriented x3 - Psychiatric Exam Psychiatric exam: Normal Affect, Normal Mood - Skin Skin Exam: Dry, Intact, Normal Color, Warm Assessment and Plan (1) Chest pain Assessment & Plan: echo nl stress test in am npo p mn Status: Acute (2) Hx of CABG Assessment & Plan: cont dapt cont bb Status: Acute (3) HTN (hypertension) Status: Acute (4) Depression Status: Acute (5) COPD (chronic obstructive pulmonary disease) Status: Chronic (6) CAD (coronary artery disease) Status: Acute
[2018-10-17 06:41] LABS: BASO # 0.1 K/uL (0.0-0.2); BASO % 1.3 % (0.0-2.0); EOS # 0.6 K/uL (0.0-0.7); EOS % 8.1 % (0.0-4.0); HEMOGLOBIN 11.3 g/dL (12.0-18.0); LYMPH # 1.6 K/uL (1.0-4.3); LYMPH % 22.5 % (20.0-40.0); MEAN CELL VOLUME 92.3 fL (80.0-94.0); MEAN CORPUSCULAR HEMOGLOBIN 31.2 pg (27.0-31.0); MEAN CORPUSCULAR HGB CONC 33.8 g/dL (33.0-37.0); MEAN PLATELET VOLUME 9.5 fL (7.2-11.7); MONO # 0.9 K/uL (0.0-0.8); MONO % 13.4 % (0.0-10.0); NEUT # 3.8 K/uL (1.8-7.0); NEUT % 54.7 % (50.0-75.0); RBC 3.61 Mil/uL (4.40-5.90); WHITE BLOOD COUNT 6.9 K/uL (4.8-10.8)
[2018-10-17 07:39] LABS: ALB/GLOB RATIO 1.3 (1.0-2.1); ALBUMIN 3.9 g/dL (3.5-5.0); ALT/SGPT 17 U/L (21-72); AST/SGOT 30 U/L (17-59); BLOOD UREA NITROGEN 12 mg/dL (9-20); CALCIUM 8.8 mg/dl (8.6-10.4); GFR NON-AFRICAN AMERICAN > 60
[2018-10-17] MEDS ORDERED: Caffeine Citrated **INJ** 20 MG/ML IV ONE (07:58)
[2018-10-17] MEDS: Multivitamin With Minerals Tab PO SCH (09:48)
[2018-10-17] MEDS: Pantoprazole 40 mg EC Tab PO SCH (09:48)
--- NOTE | 2018-10-17 10:04 | CP.PCM.PN ---
Subjective - Date & Time of Evaluation Date of Evaluation: 10/17/18 Time of Evaluation: 10:01 - Subjective Subjective: Progress note for Dr. Diomedes Gooden Pt seen and examined at bedside. No acute events overnight. Patient is sitting in bed comfortably. No complaints of chest pain this morning. Patient had nuclear stress test this morning with results pending. Patient continues to complain of diarrhea and abd discomfort. He states that he is having multiple episodes of loose watery diarrhea daily. Abd discomfort is associated with BMs. Patient is eating well and tolerating diet. Denies having any N/v, F/c, CP, SOB. Objective - Vital Signs/Intake and Output Vital Signs (last 24 hours): Temp Pulse Resp BP Pulse Ox 97.8 F 83 20 155/83 H 97 10/17/18 07:00 10/17/18 07:00 10/17/18 07:00 10/17/18 09:48 10/17/18 07:00 Intake and Output: 10/17/18 10/17/18 06:59 18:59 Intake Total 350 Balance 350 - Medications Medications: Current Medications Acetaminophen (Tylenol 325mg Tab) 650 mg PO Q6 PRN PRN Reason: Pain, moderate (4-7) Last Admin: 10/17/18 09:49 Dose: 650 mg Albuterol (Ventolin Hfa 90 Mcg/Actuation (8 G)) 2 puff IH Q4 PRN PRN Reason: Shortness of Breath Aspirin (Ecotrin) 81 mg PO DAILY [facility] Last Admin: 10/17/18 09:47 Dose: 81 mg Carvedilol (Coreg) 6.25 mg PO BID [facility] Last Admin: 10/17/18 09:48 Dose: 6.25 mg Clopidogrel Bisulfate (Plavix) 75 mg PO DAILY [facility] Last Admin: 10/17/18 09:48 Dose: 75 mg Enoxaparin Sodium (Lovenox) 40 mg SC DAILY [facility] Last Admin: 10/15/18 09:54 Dose: 40 mg Ergocalciferol (Drisdol 50,000 Intl Units Cap) 1 cap PO QWK [facility] Last Admin: 10/16/18 10:05 Dose: 1 cap Fluoxetine HCl (Prozac) 20 mg PO DAILY [facility] Last Admin: 10/17/18 09:49 Dose: 20 mg Folic Acid (Folic Acid) 1 mg PO DAILY [facility] Last Admin: 10/17/18 09:47 Dose: 1 mg Furosemide (Lasix) 40 mg PO DAILY [facility] Last Admin: 10/17/18 09:48 Dose: 40 mg Lorazepam (Ativan) 1 mg IVP Q6H PRN PRN Reason: Agitation Multivitamins/Minerals (Therapeutic-M Tab) 1 tab PO 0800 [facility] Last Admin: 10/17/18 09:48 Dose: 1 tab Pantoprazole Sodium (Protonix Ec Tab) 40 mg PO DAILY [facility] Last Admin: 10/17/18 09:48 Dose: 40 mg Rosuvastatin Calcium (Crestor) 40 mg PO HS [facility] Last Admin: 10/16/18 21:07 Dose: 40 mg Thiamine HCl (Vitamin B1 Tab) 100 mg PO DAILY [facility] Last Admin: 10/17/18 09:47 Dose: 100 mg - Labs Labs: 10/17/18 06:30 10/17/18 06:30 PT 11.6 SECONDS (9.7-12.2) 10/14/18 22:47 INR 1.1 10/14/18 22:47 APTT 30 SECONDS (21-34) 10/14/18 22:47 - Constitutional Appears: Non-toxic, No Acute Distress - Head Exam Head Exam: ATRAUMATIC, NORMOCEPHALIC - ENT Exam ENT Exam: Mucous Membranes Moist - Respiratory Exam Respiratory Exam: Clear to Ausculation Bilateral, NORMAL BREATHING PATTERN. absent: Accessory Muscle Use, Rales, Rhonchi, Wheezes, Respiratory Distress - Cardiovascular Exam Cardiovascular Exam: REGULAR RHYTHM, +S1, +S2. absent: Gallop, Rubs, Murmur - GI/Abdominal Exam GI & Abdominal Exam: Soft, Normal Bowel Sounds. absent: Distended, Firm, Guarding, Rigid, Tenderness - Neurological Exam Neurological Exam: Alert, Awake, Oriented x3 - Psychiatric Exam Psychiatric exam: Normal Affect, Normal Mood - Skin Skin Exam: Dry, Intact, Normal Color, Warm Assessment and Plan - Assessment and Plan (Free Text) Assessment: 63 year old male admitted for CP R/O ACS, HTN and possible GI bleed CP r/O ACS - pt has hx of CAD s/p CABG - Will continue home medication Aspirin, Plavix as patient cleared by GI - Cardio, Dr. Feliz is consulted - Nuclear stress test done this am. Results pending - Echo done today showed EF of 65% with grade-1 diastolic dysfunction. - Will check Hgba1c and lipid panel - continue statin therapy with crestor GERD - GI, Dr. Vines consulted - Likely no GI bleed at this time as stool occult negative. No plan for EGD at this time ETOH abuse - Patient drink about 6 beers at night. Denies having history of withdrawal seizures - CIWA protocol - Ativan 1 mg prn - Continue MV, thiamine, folic acid Diarrhea - Recent abx use - C diff is negative - pending stool cultures and stool electrolytes - will check abd US Anemia - Will check iron studies, B 12 and folic acid - Patient will need outpt colonoscopy for colon ca. screening HTN - Continue home meds coreg 3.125mg po BID, amlodipine, losartan, lasixs BPH - Continue Fluoxetine Left knee pain - lidocaine patch Prophylaxis - Protonic - Lovenox - SCD Case discussed with attending, Dr. Gooden
[2018-10-17] MEDS ORDERED: Magnesium Sulfate 1 gm in D5W 1 GM/100 ML BAG IVPB ONE (10:30)
[2018-10-17 14:19] LABS: IRON 44 ug/dL (49-181)
[2018-10-17 14:29] LABS: % IRON SATURATION 11 (20-55); TOTAL IRON BINDING CAPACITY 407 ug/dL (250-450)
--- NOTE | 2018-10-17 14:40 | US ---
Date of service: 10/17/2018 HISTORY: assess for hepatic disease COMPARISON: None. TECHNIQUE: Grayscale imaging was performed. FINDINGS: LIVER: Measures 20.5 cm. There is diffuse increased echogenicity of the liver parenchyma. No mass. No intrahepatic bile duct dilatation. GALLBLADDER: Unremarkable. No gallstones. COMMON BILE DUCT: Measures 5.1 mm. No stones. No dilatation. PANCREAS: Unremarkable as visualized. No mass. No ductal dilatation. RIGHT KIDNEY: Measures 11.5cm. Normal echogenicity. No calculus, mass, or hydronephrosis. LEFT KIDNEY: Measures 11.6cm. Normal echogenicity. No calculus, mass, or hydronephrosis. SPLEEN: Normal in size and contour. No mass. AORTA: No aneurysmal dilatation. IVC: Unremarkable. OTHER FINDINGS: None. IMPRESSION: 1. Mild hepatomegaly. 2. Diffuse increased echogenicity in the liver may reflect hepatic steatosis however parenchymal infectious/ inflammatory etiologies cannot be entirely excluded. Clinical and laboratory correlation is advised. 3. No cholelithiasis or biliary dilatation.
[2018-10-17 14:57] LABS: FERRITIN 16.5 ng/mL
[2018-10-17] MEDS: Lidocaine 5% Patch TD SCH (15:38)
[2018-10-17 16:28] LABS: FOLATE > 20.0 ng/mL
--- NOTE | 2018-10-17 19:53 | CP.PCM.PN ---
Subjective - Date & Time of Evaluation Date of Evaluation: 10/17/18 - Subjective Subjective: patient seen today no nausea no vomitng no diarrhea no fever Objective - Vital Signs/Intake and Output Vital Signs (last 24 hours): Temp Pulse Resp BP Pulse Ox 97.6 F 83 20 111/70 96 10/17/18 15:29 10/17/18 15:29 10/17/18 15:29 10/17/18 15:29 10/17/18 15:29 - Medications Medications: Current Medications Acetaminophen (Tylenol 325mg Tab) 650 mg PO Q6 PRN PRN Reason: Pain, moderate (4-7) Last Admin: 10/17/18 09:49 Dose: 650 mg Albuterol (Ventolin Hfa 90 Mcg/Actuation (8 G)) 2 puff IH Q4 PRN PRN Reason: Shortness of Breath Aspirin (Ecotrin) 81 mg PO DAILY [facility] Last Admin: 10/17/18 09:47 Dose: 81 mg Carvedilol (Coreg) 6.25 mg PO BID [facility] Last Admin: 10/17/18 18:02 Dose: 6.25 mg Clopidogrel Bisulfate (Plavix) 75 mg PO DAILY [facility] Last Admin: 10/17/18 09:48 Dose: 75 mg Enoxaparin Sodium (Lovenox) 40 mg SC DAILY [facility] Last Admin: 10/15/18 09:54 Dose: 40 mg Ergocalciferol (Drisdol 50,000 Intl Units Cap) 1 cap PO QWK [facility] Last Admin: 10/16/18 10:05 Dose: 1 cap Fluoxetine HCl (Prozac) 20 mg PO DAILY [facility] Last Admin: 10/17/18 09:49 Dose: 20 mg Folic Acid (Folic Acid) 1 mg PO DAILY [facility] Last Admin: 10/17/18 09:47 Dose: 1 mg Furosemide (Lasix) 40 mg PO DAILY [facility] Last Admin: 10/17/18 09:48 Dose: 40 mg Lidocaine (Lidoderm) 1 ea TD DAILY [facility] Last Admin: 10/17/18 15:38 Dose: 1 ea Lorazepam (Ativan) 1 mg IVP Q6H PRN PRN Reason: Agitation Multivitamins/Minerals (Therapeutic-M Tab) 1 tab PO 0800 [facility] Last Admin: 10/17/18 09:48 Dose: 1 tab Pantoprazole Sodium (Protonix Ec Tab) 40 mg PO DAILY [facility] Last Admin: 10/17/18 09:48 Dose: 40 mg Rosuvastatin Calcium (Crestor) 40 mg PO HS [facility] Last Admin: 10/16/18 21:07 Dose: 40 mg Thiamine HCl (Vitamin B1 Tab) 100 mg PO DAILY [facility] Last Admin: 10/17/18 09:47 Dose: 100 mg - Labs Labs: 10/17/18 06:30 10/17/18 06:30 PT 11.6 SECONDS (9.7-12.2) 10/14/18 22:47 INR 1.1 10/14/18 22:47 APTT 30 SECONDS (21-34) 10/14/18 22:47 - Constitutional Appears: Well - Head Exam Head Exam: ATRAUMATIC, NORMAL INSPECTION, NORMOCEPHALIC - Eye Exam Eye Exam: EOMI, Normal appearance, PERRL Pupil Exam: NORMAL ACCOMODATION, PERRL - ENT Exam ENT Exam: Mucous Membranes Moist, Normal Exam - Neck Exam Neck Exam: Full ROM, Normal Inspection. absent: Lymphadenopathy - Respiratory Exam Respiratory Exam: Decreased Breath Sounds - Cardiovascular Exam Cardiovascular Exam: REGULAR RHYTHM, +S1, +S2 - GI/Abdominal Exam GI & Abdominal Exam: Soft, Diminished Bowel Sounds - Rectal Exam Rectal Exam: Deferred - Neurological Exam Neurological Exam: Oriented x3
[2018-10-17 22:04] LABS: C DIFF TOXIN A B NEGATIVE (NEGATIVE)
[2018-10-17 22:47] LABS: FECAL LEUKOCYTES NEGATIVE (NEGATIVE)
[2018-10-18 07:35] VITALS: RESP 20; O2SAT 97
[2018-10-18 08:14] LABS: BASO # 0.1 K/uL (0.0-0.2); BASO % 1.4 % (0.0-2.0); EOS # 0.5 K/uL (0.0-0.7); EOS % 6.9 % (0.0-4.0); LYMPH # 1.6 K/uL (1.0-4.3); LYMPH % 21.7 % (20.0-40.0); MEAN CELL VOLUME 92.6 fL (80.0-94.0); MEAN CORPUSCULAR HEMOGLOBIN 31.6 pg (27.0-31.0); MEAN CORPUSCULAR HGB CONC 34.1 g/dL (33.0-37.0); MEAN PLATELET VOLUME 9.4 fL (7.2-11.7); MONO # 0.6 K/uL (0.0-0.8); MONO % 8.1 % (0.0-10.0); NEUT # 4.4 K/uL (1.8-7.0); NEUT % 61.9 % (50.0-75.0); RBC 3.79 Mil/uL (4.40-5.90); RED CELL DISTRIBUTION WIDTH 13.7 % (11.5-14.5); WHITE BLOOD COUNT 7.2 K/uL (4.8-10.8)
[2018-10-18 08:36] LABS: ALB/GLOB RATIO 1.5 (1.0-2.1); ALBUMIN 4.4 g/dL (3.5-5.0); ALT/SGPT 10 U/L (21-72); AST/SGOT 27 U/L (17-59); BLOOD UREA NITROGEN 12 mg/dL (9-20); CALCIUM 9.1 mg/dl (8.6-10.4); GFR NON-AFRICAN AMERICAN > 60
[2018-10-18] MEDS: Multivitamin With Minerals Tab PO SCH (08:55)
[2018-10-18] MEDS: Lidocaine 5% Patch TD SCH (09:24)
[2018-10-18] MEDS: Pantoprazole 40 mg EC Tab PO SCH (09:25)
[2018-10-18] MEDS ORDERED: Potassium Chloride 20 mEq ER Tab PO ONE (10:00)
[2018-10-18] MEDS: Magnesium Sulfate 1 gm in D5W 1 GM/100 ML BAG IVPB SCH ×2 (10:06→10:47)
[2018-10-18] MEDS ORDERED: Potassium Chloride 10 mEq ER Tab PO SCH (11:00)
--- NOTE | 2018-10-18 11:55 | CARD ---
APPROVED REPORT Date of service: 10/17/2018 Protocol: LEXISCAN Test Type: LEXISCAN STRESS Test Indications: CP Target HR: 159 bpm Resting Heart Rate: 78 bpm Resting Blood Pressure: 138/80mmHg submaximum (85%): 135 bpm TEST SUMMARY [id number]/80.0. INFUSIONDOSE 100:[id number]/80.0. [id number]/80.0. PROCEDURE Pharmacologic stress testing was performed using 0.4mg per 5ml of regadenoson given intravenously over 7-10 seconds. POST EXERCISE Target HR: No Max HR: 70 bpm 50% of Maximum Predicted HR: 159 bpm Exercise duration: 00:30 min:sec, 0 Stage Exercise capacity: 1.0METs Max Blood Pressure: 138/80mmHg Chest Pain: Yes, Angina index: 0 Arrhythmia: Yes, ST Change: Yes, Deviation: 0 mm EXAM: Myocardial Perfusion REST/STRESS Imaging Protocol The imaging protocol used to acquire images was Rest Tc-99m/stress Tc-99m 2 days Rest Spect myocardial perfusion imaging was performed in supine position 45 minutes following the injection of 32.5 mCi of Tc-99 Myoview. Gated Stress Spect was performed 45 minutes after intravenous 33.0 mCi Tc-99 Myoview injection. The images were gated to evaluate regional wall motion and calculate ventricular ejection fraction.Images were reconstructed using backfilter projection method in short horizontal and verticle long axis. Spect slices were generated. RESTING DATA EDV98.81bdUE3.70L/min ESV37.00mlMyocardial Yvce811.00g Av. Heart Rate77.00bpm EF62.00% STRESS DATA SEE459.89puOJ6.60L/min ESV53.00mlMyocardial Ovgc304.00g EF54.00% Regional WT score at stress:3.00 Regional WM score at stress:0.00 Summed WT score at stress:19.00 Av. Heart Rate73.00bpmSummed WM score at stress:5.00 Study quality was good. Left Ventricular size was Normal at Rest and Stress. LV Perfusion 1 Perfusion Defect Location: apical lateral Perfusion Defect Size: Small (1-2 segments) Perfusion Defect Severity: Mild Type of Perfusion Defect: Partially Reversible LV Perf. Quant 17 Seg. SSS3.00 17 Seg. SRS1.00 17 Seg. SDS2.00 Stress Defect Extent (% LAD)0.00Rest Defect Extent (% LAD)0.00Rev. Defect Extent (% LAD)0.00 Stress Defect Extent (% LCX)20.00Rest Defect Extent (% LCX)16.30Rev. Defect Extent (% LCX)5.00 Stress Defect Extent (% RCA)0.00Rest Defect Extent (% RCA)0.00Rev. Defect Extent (% RCA)0.00 Stress Defect Extent (% LAURA)6.10Rest Defect Extent (% LAURA)3.00Rev. Defect Extent (% LAURA)2.40 Other Information Quality:Fair Overall Exercise Capacity: n/a Conclusion 1. - Small sized mild intensity apical lateral wall defect ( cannot exclude ischemia vs. bowel loop attenuation) 2. - low probability for significant obstructive CAD 3. - Clinical correlation suggested for further risk stratification
--- NOTE | 2018-10-18 11:58 | CP.PCM.PN ---
Subjective - Date & Time of Evaluation Date of Evaluation: 10/17/18 Time of Evaluation: 07:30 - Subjective Subjective: pt seen in stress lab for stress testing no cp or sob Objective - Vital Signs/Intake and Output Vital Signs (last 24 hours): Temp Pulse Resp BP Pulse Ox 97.5 F L 80 20 108/65 97 10/18/18 07:00 10/18/18 07:00 10/18/18 07:00 10/18/18 09:26 10/18/18 09:41 Intake and Output: 10/18/18 10/18/18 06:59 18:59 Output Total 350 Balance -350 - Medications Medications: Current Medications Acetaminophen (Tylenol 325mg Tab) 650 mg PO Q6 PRN PRN Reason: Pain, moderate (4-7) Last Admin: 10/18/18 08:58 Dose: 650 mg Albuterol (Ventolin Hfa 90 Mcg/Actuation (8 G)) 2 puff IH Q4 PRN PRN Reason: Shortness of Breath Aspirin (Ecotrin) 81 mg PO DAILY [facility] Last Admin: 10/18/18 09:26 Dose: 81 mg Carvedilol (Coreg) 6.25 mg PO BID [facility] Last Admin: 10/18/18 09:25 Dose: 6.25 mg Clopidogrel Bisulfate (Plavix) 75 mg PO DAILY [facility] Last Admin: 10/18/18 09:25 Dose: 75 mg Enoxaparin Sodium (Lovenox) 40 mg SC DAILY [facility] Last Admin: 10/15/18 09:54 Dose: 40 mg Ergocalciferol (Drisdol 50,000 Intl Units Cap) 1 cap PO QWK [facility] Last Admin: 10/16/18 10:05 Dose: 1 cap Fluoxetine HCl (Prozac) 20 mg PO DAILY [facility] Last Admin: 10/18/18 09:28 Dose: 20 mg Folic Acid (Folic Acid) 1 mg PO DAILY [facility] Last Admin: 10/18/18 09:25 Dose: 1 mg Furosemide (Lasix) 40 mg PO DAILY [facility] Last Admin: 10/18/18 09:26 Dose: 40 mg Lidocaine (Lidoderm) 1 ea TD DAILY [facility] Last Admin: 10/18/18 09:24 Dose: 1 ea Lorazepam (Ativan) 1 mg IVP Q6H PRN PRN Reason: Agitation Multivitamins/Minerals (Therapeutic-M Tab) 1 tab PO 0800 [facility] Last Admin: 10/18/18 08:55 Dose: 1 tab Pantoprazole Sodium (Protonix Ec Tab) 40 mg PO DAILY [facility] Last Admin: 10/18/18 09:25 Dose: 40 mg Potassium Chloride (Klor-Con 10) 10 meq PO BRK [facility] Last Admin: 10/18/18 11:16 Dose: Not Given Rosuvastatin Calcium (Crestor) 40 mg PO HS [facility] Last Admin: 10/17/18 21:26 Dose: 40 mg Thiamine HCl (Vitamin B1 Tab) 100 mg PO DAILY [facility] Last Admin: 10/18/18 09:25 Dose: 100 mg - Labs Labs: 10/18/18 08:11 10/18/18 08:11 PT 11.6 SECONDS (9.7-12.2) 10/14/18 22:47 INR 1.1 10/14/18 22:47 APTT 30 SECONDS (21-34) 10/14/18 22:47 - Constitutional Appears: Well - Head Exam Head Exam: ATRAUMATIC, NORMAL INSPECTION, NORMOCEPHALIC - Eye Exam Eye Exam: EOMI, Normal appearance, PERRL Pupil Exam: NORMAL ACCOMODATION, PERRL - ENT Exam ENT Exam: Mucous Membranes Moist, Normal Exam - Neck Exam Neck Exam: Full ROM, Normal Inspection. absent: Lymphadenopathy - Respiratory Exam Respiratory Exam: Clear to Ausculation Bilateral, NORMAL BREATHING PATTERN - Cardiovascular Exam Cardiovascular Exam: REGULAR RHYTHM, +S1, +S2. absent: Murmur - GI/Abdominal Exam GI & Abdominal Exam: Soft, Normal Bowel Sounds. absent: Tenderness - Extremities Exam Extremities Exam: Full ROM, Normal Capillary Refill, Normal Inspection. absent: Joint Swelling, Pedal Edema - Back Exam Back Exam: NORMAL INSPECTION - Neurological Exam Neurological Exam: Alert, Awake, CN II-XII Intact, Normal Gait, Oriented x3 - Psychiatric Exam Psychiatric exam: Normal Affect, Normal Mood - Skin Skin Exam: Dry, Intact, Normal Color, Warm Assessment and Plan (1) Chest pain Assessment & Plan: stress test low probability for significant cad maximize meds for CAD cont asa, plavix, coreg,lasix, crestor add imdur 30mg po daily and ranexa 500mg bid stable to pa home in am outpt f/u in 2 weeks Status: Acute (2) Hx of CABG Assessment & Plan: cont meds as above Status: Acute (3) HTN (hypertension) Status: Acute (4) Depression Status: Acute (5) COPD (chronic obstructive pulmonary disease) Status: Chronic (6) CAD (coronary artery disease) Status: Acute
--- NOTE | 2018-10-18 15:23 | CP.PCM.PN ---
Subjective - Date & Time of Evaluation Date of Evaluation: 10/18/18 - Subjective Subjective: patient examined today patient denies, nausea, vomiting, diarrhea, fever, sob Objective - Vital Signs/Intake and Output Vital Signs (last 24 hours): Temp Pulse Resp BP Pulse Ox 97.5 F L 80 20 108/65 97 10/18/18 07:00 10/18/18 07:00 10/18/18 07:00 10/18/18 09:26 10/18/18 09:41 Intake and Output: 10/18/18 10/18/18 06:59 18:59 Output Total 350 Balance -350 - Medications Medications: Current Medications Acetaminophen (Tylenol 325mg Tab) 650 mg PO Q6 PRN PRN Reason: Pain, moderate (4-7) Last Admin: 10/18/18 08:58 Dose: 650 mg Albuterol (Ventolin Hfa 90 Mcg/Actuation (8 G)) 2 puff IH Q4 PRN PRN Reason: Shortness of Breath Aspirin (Ecotrin) 81 mg PO DAILY [facility] Last Admin: 10/18/18 09:26 Dose: 81 mg Carvedilol (Coreg) 6.25 mg PO BID [facility] Last Admin: 10/18/18 09:25 Dose: 6.25 mg Clopidogrel Bisulfate (Plavix) 75 mg PO DAILY [facility] Last Admin: 10/18/18 09:25 Dose: 75 mg Enoxaparin Sodium (Lovenox) 40 mg SC DAILY [facility] Last Admin: 10/15/18 09:54 Dose: 40 mg Ergocalciferol (Drisdol 50,000 Intl Units Cap) 1 cap PO QWK [facility] Last Admin: 10/16/18 10:05 Dose: 1 cap Fluoxetine HCl (Prozac) 20 mg PO DAILY [facility] Last Admin: 10/18/18 09:28 Dose: 20 mg Folic Acid (Folic Acid) 1 mg PO DAILY [facility] Last Admin: 10/18/18 09:25 Dose: 1 mg Furosemide (Lasix) 40 mg PO DAILY [facility] Last Admin: 10/18/18 09:26 Dose: 40 mg Lidocaine (Lidoderm) 1 ea TD DAILY [facility] Last Admin: 10/18/18 09:24 Dose: 1 ea Lorazepam (Ativan) 1 mg IVP Q6H PRN PRN Reason: Agitation Multivitamins/Minerals (Therapeutic-M Tab) 1 tab PO 0800 [facility] Last Admin: 10/18/18 08:55 Dose: 1 tab Pantoprazole Sodium (Protonix Ec Tab) 40 mg PO DAILY [facility] Last Admin: 10/18/18 09:25 Dose: 40 mg Potassium Chloride (Klor-Con 10) 10 meq PO BRK [facility] Last Admin: 10/18/18 11:16 Dose: Not Given Rosuvastatin Calcium (Crestor) 40 mg PO HS [facility] Last Admin: 10/17/18 21:26 Dose: 40 mg Thiamine HCl (Vitamin B1 Tab) 100 mg PO DAILY [facility] Last Admin: 10/18/18 09:25 Dose: 100 mg - Labs Labs: 10/18/18 08:11 10/18/18 08:11 PT 11.6 SECONDS (9.7-12.2) 10/14/18 22:47 INR 1.1 10/14/18 22:47 APTT 30 SECONDS (21-34) 10/14/18 22:47 - Constitutional Appears: Well - Head Exam Head Exam: ATRAUMATIC, NORMAL INSPECTION, NORMOCEPHALIC - Eye Exam Eye Exam: EOMI, Normal appearance, PERRL Pupil Exam: NORMAL ACCOMODATION, PERRL - ENT Exam ENT Exam: Mucous Membranes Moist, Normal Exam - Neck Exam Neck Exam: Full ROM, Normal Inspection. absent: Lymphadenopathy - Respiratory Exam Respiratory Exam: Decreased Breath Sounds - Cardiovascular Exam Cardiovascular Exam: REGULAR RHYTHM, +S1, +S2 - GI/Abdominal Exam GI & Abdominal Exam: Soft, Diminished Bowel Sounds - Rectal Exam Rectal Exam: Deferred - Neurological Exam Neurological Exam: Oriented x3 Assessment and Plan - Assessment and Plan (Free Text) Plan: labs reviewed vitals reviewed medications reviewed
[2018-10-18 15:37] VITALS: BP 147/92; PULSE 87; TEMP 97.7
--- NOTE | 2018-10-18 17:32 | CP.PCM.PN ---
Subjective - Date & Time of Evaluation Date of Evaluation: 10/18/18 Time of Evaluation: 17:32 - Subjective Subjective: alert and orientedx3, denies sob or chest pains, no tremors noted. Objective - Vital Signs/Intake and Output Vital Signs (last 24 hours): Temp Pulse Resp BP Pulse Ox 97.7 F 87 20 147/92 H 97 10/18/18 15:00 10/18/18 15:00 10/18/18 15:00 10/18/18 15:00 10/18/18 15:00 Intake and Output: 10/18/18 10/18/18 06:59 18:59 Output Total 350 Balance -350 - Medications Medications: Current Medications Acetaminophen (Tylenol 325mg Tab) 650 mg PO Q6 PRN PRN Reason: Pain, moderate (4-7) Last Admin: 10/18/18 08:58 Dose: 650 mg Albuterol (Ventolin Hfa 90 Mcg/Actuation (8 G)) 2 puff IH Q4 PRN PRN Reason: Shortness of Breath Aspirin (Ecotrin) 81 mg PO DAILY [facility] Last Admin: 10/18/18 09:26 Dose: 81 mg Carvedilol (Coreg) 6.25 mg PO BID [facility] Last Admin: 10/18/18 09:25 Dose: 6.25 mg Clopidogrel Bisulfate (Plavix) 75 mg PO DAILY [facility] Last Admin: 10/18/18 09:25 Dose: 75 mg Enoxaparin Sodium (Lovenox) 40 mg SC DAILY [facility] Last Admin: 10/15/18 09:54 Dose: 40 mg Ergocalciferol (Drisdol 50,000 Intl Units Cap) 1 cap PO QWK [facility] Last Admin: 10/16/18 10:05 Dose: 1 cap Fluoxetine HCl (Prozac) 20 mg PO DAILY [facility] Last Admin: 10/18/18 09:28 Dose: 20 mg Folic Acid (Folic Acid) 1 mg PO DAILY [facility] Last Admin: 10/18/18 09:25 Dose: 1 mg Furosemide (Lasix) 40 mg PO DAILY [facility] Last Admin: 10/18/18 09:26 Dose: 40 mg Lidocaine (Lidoderm) 1 ea TD DAILY [facility] Last Admin: 10/18/18 09:24 Dose: 1 ea Lorazepam (Ativan) 1 mg IVP Q6H PRN PRN Reason: Agitation Multivitamins/Minerals (Therapeutic-M Tab) 1 tab PO 0800 [facility] Last Admin: 10/18/18 08:55 Dose: 1 tab Pantoprazole Sodium (Protonix Ec Tab) 40 mg PO DAILY [facility] Last Admin: 10/18/18 09:25 Dose: 40 mg Potassium Chloride (Klor-Con 10) 10 meq PO BRK [facility] Last Admin: 10/18/18 11:16 Dose: Not Given Rosuvastatin Calcium (Crestor) 40 mg PO HS [facility] Last Admin: 10/17/18 21:26 Dose: 40 mg Thiamine HCl (Vitamin B1 Tab) 100 mg PO DAILY [facility] Last Admin: 10/18/18 09:25 Dose: 100 mg - Labs Labs: 10/18/18 08:11 10/18/18 08:11 PT 11.6 SECONDS (9.7-12.2) 10/14/18 22:47 INR 1.1 10/14/18 22:47 APTT 30 SECONDS (21-34) 10/14/18 22:47 Assessment and Plan - Assessment and Plan (Free Text) Assessment: 63 year old male admitted with alcohol withdrawal symptoms and copd exacerbation, seen and examined. Alert and oriented x3, denies any acute complaints. Discussed with DR Long, plan to discharge home today, patient need to find a place to live apparently he is home less.All the needed prescriptions given, advised to follow up with PMD in 1 week.
[2018-10-18] MEDS ORDERED: Potassium Chloride 20 mEq ER Tab PO STA (17:47)
--- NOTE | 2018-10-19 09:52 | CP.PCM.DIS ---
Provider - Provider Date of Admission: 10/15/18 01:43 Attending physician: Mikhail Gooedn MD Primary care physician: holden ibarra Consults: 10/15/18 01:50 Cardiology Consult Routine Comment: chest pain Consulting Provider: Miguel Feliz Consulting Physician: Miguel Feliz Reason for Consult: chest pain Time Spent in preparation of Discharge (in minutes): 20 Hospital Course - Lab Results Lab Results: Most Recent Lab Values WBC 7.2 K/uL (4.8-10.8) 10/18/18 08:11 RBC 3.79 Mil/uL (4.40-5.90) L 10/18/18 08:11 Hgb 12.0 g/dL (12.0-18.0) 10/18/18 08:11 Hct 35.1 % (35.0-51.0) 10/18/18 08:11 MCV 92.6 fL (80.0-94.0) 10/18/18 08:11 MCH 31.6 pg (27.0-31.0) H 10/18/18 08:11 MCHC 34.1 g/dL (33.0-37.0) 10/18/18 08:11 RDW 13.7 % (11.5-14.5) 10/18/18 08:11 Plt Count 236 K/uL (130-400) 10/18/18 08:11 MPV 9.4 fL (7.2-11.7) 10/18/18 08:11 Neut % (Auto) 61.9 % (50.0-75.0) 10/18/18 08:11 Lymph % (Auto) 21.7 % (20.0-40.0) 10/18/18 08:11 [place] % (Auto) 8.1 % (0.0-10.0) 10/18/18 08:11 Eos % (Auto) 6.9 % (0.0-4.0) H 10/18/18 08:11 Baso % (Auto) 1.4 % (0.0-2.0) 10/18/18 08:11 Neut # (Auto) 4.4 K/uL (1.8-7.0) 10/18/18 08:11 Lymph # (Auto) 1.6 K/uL (1.0-4.3) 10/18/18 08:11 [place] # (Auto) 0.6 K/uL (0.0-0.8) 10/18/18 08:11 Eos # (Auto) 0.5 K/uL (0.0-0.7) 10/18/18 08:11 Baso # (Auto) 0.1 K/uL (0.0-0.2) 10/18/18 08:11 PT 11.6 SECONDS (9.7-12.2) 10/14/18 22:47 INR 1.1 10/14/18 22:47 APTT 30 SECONDS (21-34) 10/14/18 22:47 Sodium 134 mmol/L (132-148) 10/18/18 08:11 Potassium 3.5 mmol/L (3.6-5.2) L 10/18/18 08:11 Chloride 99 mmol/L (98-107) 10/18/18 08:11 Carbon Dioxide 25 mmol/L (22-30) 10/18/18 08:11 Anion Gap 14 (10-20) 10/18/18 08:11 BUN 12 mg/dL (9-20) 10/18/18 08:11 Creatinine 0.8 mg/dL (0.8-1.5) 10/18/18 08:11 Est GFR ( Amer) > 60 10/18/18 08:11 Est GFR (Non-Af Amer) > 60 10/18/18 08:11 Random Glucose 135 mg/dL (75-110) H 10/18/18 08:11 Hemoglobin A1c 5.8 % (4.2-6.5) 10/17/18 06:30 Calcium 9.1 mg/dl (8.6-10.4) 10/18/18 08:11 Phosphorus 3.8 mg/dL (2.5-4.5) 10/18/18 08:11 Magnesium 1.3 mg/dL (1.6-2.3) L 10/18/18 08:11 Iron 44 ug/dL (49-181) L 10/17/18 13:53 TIBC 407 ug/dL (250-450) 10/17/18 13:53 % Saturation 10 (20-55) L 10/17/18 13:53 Ferritin 16.5 ng/mL 10/17/18 13:53 Total Bilirubin 0.4 mg/dL (0.2-1.3) 10/18/18 08:11 AST 27 U/L (17-59) 10/18/18 08:11 ALT 10 U/L (21-72) L D 10/18/18 08:11 Alkaline Phosphatase 77 U/L (38-126) 10/18/18 08:11 Total Creatine Kinase 73 U/L (55-170) 10/16/18 08:34 CK-MB (Mass) 0.50 ng/mL (0.0-3.38) 10/16/18 08:34 Troponin I < 0.0120 ng/mL (0.00-0.120) 10/16/18 08:34 Total Protein 7.4 g/dL (6.3-8.3) 10/18/18 08:11 Albumin 4.4 g/dL (3.5-5.0) 10/18/18 08:11 Globulin 3.0 gm/dL (2.2-3.9) 10/18/18 08:11 Albumin/Globulin Ratio 1.5 (1.0-2.1) 10/18/18 08:11 Lipase 119 U/L (23-300) 10/14/18 22:47 Vitamin B12 397 pg/mL (239-931) 10/17/18 13:53 Folate > 20.0 ng/mL 10/17/18 13:53 Urine Color Straw (YELLOW) 10/15/18 01:05 Urine Clarity Clear (Clear) 10/15/18 01:05 Urine pH 6.0 (5.0-8.0) 10/15/18 01:05 Ur Specific [place] 1.004 (1.003-1.030) 10/15/18 01:05 Urine Protein Negative mg/dL (NEGATIVE) 10/15/18 01:05 Urine Glucose (UA) Normal mg/dL (Normal) 10/15/18 01:05 Urine Ketones Negative mg/dL (NEGATIVE) 10/15/18 01:05 Urine Blood Negative (NEGATIVE) 10/15/18 01:05 Urine Nitrate Negative (NEGATIVE) 10/15/18 01:05 Urine Bilirubin Negative (NEGATIVE) 10/15/18 01:05 Urine Urobilinogen Normal mg/dL (0.2-1.0) 10/15/18 01:05 Ur Leukocyte Esterase Neg Jeaneth/uL (Negative) 10/15/18 01:05 Stool Occult Blood Negative (NEGATIVE) 10/17/18 20:12 Stool Leukocytes, Qual Negative (NEGATIVE) 10/17/18 20:12 Alcohol, Quantitative 86 mg/dl (0-10) H 10/15/18 02:18 C. 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 Feliz who decided to discharge the patient with the rest of the workup as an outpatient patient is aware eventually patient was discharged for the first with further workup as an outpatient Patient advised to take DuoNeb Aspirin Coreg Plavix He is psych medications and Lasix Potassium supplementations given before he was discharged Discharge Exam - Head Exam Head Exam: ATRAUMATIC, NORMAL INSPECTION, NORMOCEPHALIC - Eye Exam Eye Exam: EOMI, Normal appearance, PERRL - ENT Exam ENT Exam: Normal External Ear Exam - Neck Exam Neck exam: Full Rom, Normal Inspection - Respiratory Exam Respiratory Exam: Decreased Breath Sounds - Cardiovascular Exam Cardiovascular Exam: REGULAR RHYTHM, +S1, +S2 - GI/Abdominal Exam GI & Abdominal Exam: Diminished Bowel Sounds, Distended - Rectal Exam Rectal Exam: Deferred - Neurological Exam Neurological exam: Oriented x3 Discharge Plan - Discharge Medications Prescriptions: Carvedilol [Coreg] 6.25 mg PO BID #60 tab Isosorbide Mononitrate ER [Imdur ER] 30 mg PO DAILY #30 tab Lidocaine 5% [Lidoderm] 1 ea TD DAILY #30 patch Clopidogrel [Plavix] 75 mg PO DAILY #30 tab Ranolazine [Ranexa] 500 mg PO BID #60 ter - Follow Up Plan Condition: FAIR Disposition: HOME/ ROUTINE Instructions: Ranolazine, Heart Healthy Diet, Lidocaine (Topical), Chest Pain (DC), Exacerbation of COPD (DC), Carvedilol, Clopidogrel, Isosorbide Mononitrate, Hypertension (GEN) Additional Instructions: Patient is to be discharged home as per Dr. Diomedes Gooden. Pt is to follow up with Dr. Diomedes Gooden in one week. follow up with the shipyard laborer, Dr. Feliz in two weeks. Return to the ER if symptoms return or worsen. New medications: Coreg 6.25 mg by mouth twice a day Plavix 75 mg by mouth Daily Isosorbide mononitrate 30 mg by mouth daily Ranexa 500 mg by mouth twice daily Lidocaine 5% patch daily Referrals: Miguel Feliz MD [Staff Provider] - 2 Weeks Maxime Gooden MD [Staff Provider] -
== END 2018-10-18 18:28 | disposition home or self-care (01) ==
LOC: C.ER 20:30 → C.9E 10-15 01:43 → C.5S 10-15 03:01
PROVIDERS: ADMIT Internal Medicine Nephrology; ATTEND Internal Medicine Nephrology
DX: F10.239 Alcohol dependence with withdrawal, unspecified (principal); R07.9 Chest pain, unspecified; J44.1 Chronic obstructive pulmonary disease with (acute) exacerbation; I11.0 Hypertensive heart disease with heart failure; I25.10 Atherosclerotic heart disease of native coronary artery without angina pectoris; I50.9 Heart failure, unspecified; R16.0 Hepatomegaly, not elsewhere classified; M19.90 Unspecified osteoarthritis, unspecified site; F32.9 Major depressive disorder, single episode, unspecified; Z82.49 Family history of ischemic heart disease and other diseases of the circulatory system; Z83.3 Family history of diabetes mellitus; Z87.891 Personal history of nicotine dependence; Z95.1 Presence of aortocoronary bypass graft; D63.8 Anemia in other chronic diseases classified elsewhere; K21.9 Gastro-esophageal reflux disease without esophagitis; N40.0 Benign prostatic hyperplasia without lower urinary tract symptoms
CPT/HCPCS: 36415; 71045; 76700; 78452; 80053; 80320; 81001; 82438; 82607; 82728; 82746; 83036; 83540; 83550; 83690; 83735; 84100; 84302; 84311; 84484; 85025; 85610; 85730; 86850; 86900; 87045; 87230; 87329; 89055; 93005; 93017; 93306; 96365; 96366; 96375; 96376; 99282; A9502; C9113; G0328; G0378; J0706; J1650; J2405; J2785; J3475; J7030